=== PATIENT | male | born 1960 | race Caucasian/White ===

== ENCOUNTER 2016-12-20 12:39 | Inpatient (IN) | payer OTHER ==
--- NOTE | 2016-12-20 13:12 | RAD ---
RIGHT FOOT 3 VIEWS: HISTORY: Evaluate for osteomyelitis. COMPARISON: Radiographs 2016. FINDINGS: Central defect is noted at the articular surface of the 1st metatarsal head. There is some soft tis halima thickening of the medial margin of the interphalangeal joint of the great toe. No large erosio ns or periostitis. IMPRESSION: Soft tissue changes of infection or cellulitis. No definite evidence of osteomyelitis. If there is continued clinical concern, focused MRI of that area is recommended. POS: ELLIS
[2016-12-20 14:10] LABS: #Basophils 0.1 thou/uL (0.0-0.2); #Eosinphils 0.3 thou/uL (0.0-0.7); #Lymphocytes 2.7 thou/uL (1.20-3.40); #Monocytes 0.8 thou/uL (0.11-0.59); #Neutrophils 6.4 thou/uL (1.40-6.50); %Basophils 1.1 % (0.0-1.0); %Lymphocytes 25.7 % (21.0-51.0); %Monocytes 8.1 % (0.0-10.0); Hematocrit 44.6 % (42.0-52.0); Mean Platelet Volume 7.2 fL (7.4-10.4); Red Blood Cell (RBC) Count 4.92 mill/uL (4.70-6.10); White Blood Cell (WBC) Count 10.3 thou/uL (4.8-10.8)
[2016-12-20 14:26] LABS: ALT (SGPT) 19 U/L (8-55); AST (SGOT) 11 U/L (5-34); Alkaline Phosphatase 114 U/L (40-150); Anion Gap 13 mmol/L (10-20); BUN (Urea Nitrogen) 27 mg/dL (8.4-25.7); Bilirubin, Total 0.4 mg/dL (0.2-1.2); Calc. Creatinine Clearance 0 mL/min (70-130); Calcium 9.8 mg/dL (7.8-10.44); Carbon Dioxide 22 mmol/L (22-29); Chloride 103 mmol/L (98-107); Estimated GFR-MDRD 48; Globulin 3.5 g/dL (2.4-3.5); Protein, Total 7.4 g/dL (6.0-8.3)
[2016-12-20] MEDS ORDERED: Piperacillin/Tazobactam 3.375 GM in Sodium Chloride 0.9% 100 ML IVPB SCH ×2 (15:15→18:00)
[2016-12-20 15:25] LABS: Bilirubin Negative (Negative); Blood, Urine Negative (Negative); Glucose, Urine (Dipstick) 500 mg/dL (Negative); Ketone, Urine Negative (Negative); Nitrite Negative (Negative); Protein, Urine (Dipstick) Negative (Neg-Trace); Urobilinogen 0.2 mg/dL (0.2-1.0)
--- NOTE | 2016-12-20 15:49 | HP ---
PRIMARY CARE PHYSICIAN: Layo Lugo M.D. REASON FOR ADMISSION: Right great toe cellulitis with ulcer. HISTORY OF PRESENT ILLNESS: A 56-year-old male who was admitted in our hospital on 10/13/2016. At that time, patient had callus over his right great toe which breakdown and subsequently he was havin g ulcer, which was healing, but for last few days, he noticed that ulcer over plantar aspect of righ t great toe which was draining purulent material. He was applying and doing wound care by himself anton Doe, but he was feeling that it was not helping, and he noticed increasing erythema over d orsal aspect of right great toe and he was also feeling a little bit of discomfort. He denies any f ever or chills. He denies any nausea, vomiting, and diarrhea. He denies walking barefoot. Patient is feeling that his ulcer over right great toe is getting worse and that is why he decided to come to emergency room for evaluation. In the emergency room, his blood sugar was 399. He had x-ray of the foot which showed no evidence of osteomyelitis. Patient reports that he is taking his medicatio n as prescribed. He still smokes about half pack per day. He denies any urinary tract infection sy mptoms. He denies any chest pain, palpitations, and shortness of breath. REVIEW OF SYSTEMS: The following complete review of systems was negative, unless otherwise mentione d in the HPI or below: Constitutional: Weight loss or gain, ability to conduct usual activities. Skin: Rash, itching. Eyes: Double vision, pain. ENT/Mouth: Nose bleeding, neck stiffness, pain, tenderness. Cardiovascular: Palpitations, dyspnea on exertion, orthopnea. Respiratory: Shortness of breath, wheezing, cough, hemoptysis, fever or night sweats. Gastrointestinal: Poor appetite, abdominal pain, heartburn, nausea, vomiting, constipation, or diar johnie. Genitourinary: Urgency, frequency, dysuria, nocturia. Musculoskeletal: Pain, swelling. Neurologic/Psychiatric: Anxiety, depression. Allergy/Immunologic: Skin rash, bleeding tendency. Please see my HPI for pertinent positive and negative. All other review of systems reviewed and neg ative except as mentioned in the HPI. PAST MEDICAL HISTORY: History of GA in 2015, required cardiac catheterization; coronary artery dise ase, required CABG; COPD; tobacco abuse disorder; diabetes type 2; hypertension; dyslipidemia; ische miguel cardiomyopathy; and chronic systolic heart failure. PAST SURGICAL HISTORY: CABG in 04/2014. PAST PSYCHIATRIC HISTORY: Reviewed and negative. SOCIAL HISTORY: Patient is smoking about half to 1 pack per day since age of 19. He denies any alc ohol abuse. He denies any other illicit drug abuse. FAMILY HISTORY: Father was diagnosed with colon cancer. Mother had myocardial infarction. Hyperte nsion and diabetes runs among several family members. ALLERGIES: No known drug allergies. CURRENT HOME MEDICATIONS: The patient does not have any medication with him at this point, but base d on our hospital discharge summary, the patient is on following medications: Amiodarone 200 mg p.o . daily, aspirin 325 mg p.o. daily, Coreg 3.125 mg p.o. b.i.d., Lasix 40 mg p.o. daily, lisinopril 2 .5 mg p.o. daily, Zocor 20 mg p.o. daily, metformin 500 mg p.o. daily, and glyburide 5 mg p.o. daily . EMERGENCY ROOM COURSE: Patient has received vancomycin, Zosyn and IV fluid in the emergency room. PHYSICAL EXAMINATION: VITAL SIGNS: On arrival, blood pressure 123/64, pulse 71, respiratory rate 18, temperature 97.7, sa turation 97% on room air, weight 86.1 kilograms. GENERAL: Patient is currently alert, awake, no obvious acute distress. HEAD: Normocephalic, atraumatic. EYES: Pupils round and reactive to light. Extraocular muscles intact. ENT: Oropharynx within normal limits. Moist mucous membranes. No oral lesions. No pharyngeal conrad thema, no exudate. NECK: Supple, no JVD, no thyromegaly, no carotid bruit. LUNGS: Clear to auscultation without any rhonchi or rales. CARDIAC: S1 and S2 regular without any murmur. ABDOMEN: Soft, bowel sounds present, nontender, nondistended. No organomegaly, no mass, no suprapu bic tenderness. BACK: Examination unremarkable, no CVA tenderness. EXTREMITIES: Upper extremity passive movements of all joints are normal. Lower extremities, right foot tenderness noted. Right great toe with plantar aspect ulceration draining scant amount of puru lent material. The patient does have ulcer about 2 cm in size at the plantar aspect of right great toe. Patient does have right great toe erythema even on dorsal aspect. NEUROLOGIC: Nonfocal examination. The patient moves all 4 limbs. Plantar bilateral flexor. Speec h normal. No focal neurological deficit noted. SKIN: No skin rash other than cellulitis of right great toe. PSYCHIATRIC: Normal affect. IMAGING AND SIGNIFICANT LABORATORY DATA: 1. X-ray of the toe consistent with soft tissue changes over right great toe consistent with cellul itis. No osteomyelitis based on x-ray. 2. CBC: WBC 10.3, hemoglobin 14.8, platelet 276, and ESR 29. 3. BMP: Sodium 134, potassium 4.1, chloride 103, carbon dioxide 22, BUN 27, creatinine 1.51, gluco se 399, and calcium 9.8. 4. LFTs: AST 11, ALT 19, alkaline phosphatase 114, and albumin 3.9. CRP less than 0.50. ASSESSMENT AND PLAN/IMPRESSION: 1. Right great toe cellulitis with ulcer in view of uncontrolled diabetes. This patient has cellul itis of right great toe with a scant amount of draining from the ulcer. This patient will require w ound care. This patient is at risk for losing his great toe. Patient will need admission for IV an tibiotic therapy. We will continue with vancomycin and Zosyn. We will consult Wound Care Team for wound care. Patient may need minor surgical debridement at bedside and that is why we will consult General Surgery for evaluation. 2. Diabetes type 2, uncontrolled. At this point, we will continue with glyburide 5 mg p.o. daily a nd metformin 500 mg p.o. daily. We will check hemoglobin A1c. We will continue with insulin as per sliding scale protocol. Diabetic diet will be given, supplement with Davian will be given to promot e wound healing. 3. Dyslipidemia. We will continue Zocor 20 mg p.o. at bedtime. 4. Chronic systolic heart failure. Currently, patient is euvolemic and compensated. We will rocío nue Lasix 40 mg p.o. daily, lisinopril 2.5 mg p.o. daily, and Coreg 3.125 mg p.o. b.i.d. We will re peat basic metabolic panel tomorrow. 5. Ischemic cardiomyopathy. We will continue amiodarone 200 mg p.o. daily along with Coreg and lis inopril as per home dosage. 6. Coronary artery disease with history of coronary artery bypass grafting. Continue aspirin, Zoco r, Coreg, and lisinopril as per home dosage. 7. Tobacco abuse disorder. Smoking cessation counseling given. Healthy lifestyle measures discuss ed with the patient. 8. Chronic kidney disease stage 3. We will monitor renal function and will avoid nephrotoxic agent s. If renal function is getting worse, then we will hold on Lasix therapy. 9. Deep venous thrombosis prophylaxis, Lovenox 40 mg subcu daily. 10. Gastrointestinal prophylaxis, Pepcid 20 mg p.o. b.i.d. 11. Code status: The patient is FULL CODE. Disposition plan based on clinical course. We are expecting patient's stay in the hospital more veda n 2 midnights. Plan of care discussed with the patient in detail.
[2016-12-20] MEDS ORDERED: Chloraseptic Spray 180 ml Bottle PO PRN (17:28)
[2016-12-20] MEDS ORDERED: Dextrose 5% in Water 1,000 ML IV PRN (17:28)
[2016-12-20] MEDS ORDERED: Diabetic Tussin 200 MG/10 ML UDCUP PO PRN (17:28)
[2016-12-20] MEDS ORDERED: Zolpidem Tartrate 5 MG TAB PO PRN (17:28)
[2016-12-20] MEDS ORDERED: Mag-Al 1200 mg/1200 mg/30 ML UDCUP PO PRN (17:28)
[2016-12-20] MEDS ORDERED: Dextrose 50% Abboject 50 ML SYRINGE SLOW IVP PRN (17:28)
[2016-12-20] MEDS ORDERED: Ondansetron ODT 4 MG TAB PO PRN (17:28)
[2016-12-20] MEDS ORDERED: Acetaminophen 325 MG TAB PO PRN (17:28)
[2016-12-20] MEDS ORDERED: Senokot 8.6 MG TAB PO PRN (17:28)
[2016-12-20] MEDS ORDERED: Ondansetron HCl/PF 4 MG/2 ML Vial IVP PRN (17:28)
[2016-12-20] MEDS ORDERED: Milk Of Magnesia 30 ML UDCUP PO PRN (17:28)
[2016-12-20] MEDS ORDERED: Insulin Regular 300 UNITS/3 ML VIAL SC PRN (17:28)
[2016-12-20] MEDS ORDERED: Sodium Chloride 0.65% Nasal 44 ML BOT EA NARE PRN (17:28)
[2016-12-20] MEDS ORDERED: hydrALAZINE 20 MG/ML VIAL SLOW IVP PRN (17:28)
[2016-12-20] MEDS ORDERED: Artificial Tears 18 DROP/0.9 ML EA EYE PRN (17:28)
[2016-12-20] MEDS ORDERED: Loperamide HCl 2 MG CAP PO PRN (17:28)
[2016-12-20] MEDS ORDERED: HYDROcodone/Acetaminophen 5/325 mg Tablet PO PRN (17:28)
[2016-12-20] MEDS ORDERED: Nitroglycerin 0.4 MG TAB (25 Tab Bottle) SL PRN (17:28)
[2016-12-20] MEDS ORDERED: Eucerin (Mineral Oil/Petrolatum,White) 30 gm Jar TOP PRN (17:28)
[2016-12-20] MEDS ORDERED: Loratadine 10 MG TAB PO PRN (17:28)
[2016-12-20] MEDS: Carvedilol 3.125 MG TAB PO SCH ×2 (18:52→19:46)
[2016-12-20] MEDS: Famotidine 20 MG TAB PO SCH (20:53)
[2016-12-20] MEDS: Atorvastatin Calcium 10 MG TAB PO SCH (20:53)
[2016-12-21] MEDS: Piperacillin/Tazobactam 3.375 GM, Admixture Fee 1 EACH in Sodium Chloride 0.9% 100 ML IVPB SCH ×5 (00:05→23:17)
--- NOTE | 2016-12-21 01:29 | CON ---
DATE OF CONSULTATION: 12/20/2016 REASON FOR CONSULT: Right great toe cellulitis with ulcer. HISTORY OF PRESENT ILLNESS: Mr. Cole is a 56-year-old man with diabetes who was seen recently in our hospital back in September for a right great toe ulcer. He underwent shaving of the callus by Dr. Winchester and was treating his toe at home and thought that it was getting better; however, when he too k off the bandage this morning, it splits and his right great toe had gotten quite a bit deeper and he became concerned, so he came to the emergency room. He denies any fevers or chills or drainage, though he was admitted due to early cellulitis. X-ray of the foot in the emergency room did not ellen w any evidence of bony erosion. The patient claims that he has problems with callus on his great to e chronically, but has not yet established care with a radio maintainer. He was supposed to follow up wit h Dr. Winchester, states that it looks so good, he did not think it was necessary. PAST MEDICAL HISTORY: Diabetes, coronary artery disease status post catheterization and bypass, isidra oing tobacco abuse, hypertension, hyperlipidemia, ischemic cardiomyopathy and COPD. He underwent a CABG in 2014. SOCIAL HISTORY: He is still smoking, but states that he is switched to light cigarettes. He is not interested in smoking cessation. He denies any alcohol or drug abuse. FAMILY HISTORY: Colon cancer, heart disease, hypertension, and diabetes. ALLERGIES: He has no known drug allergies. OUTPATIENT MEDICATIONS: Include amiodarone, aspirin, carvedilol, Lasix, lisinopril, magnesium hydro xide, simvastatin, glyburide and metformin. INPATIENT MEDICATIONS: Include aspirin, atorvastatin, amiodarone, carvedilol, Lovenox, Pepcid, Lasi x, glyburide, sliding scale insulin, lisinopril, metformin, Zosyn, vancomycin and multiple p.r.n. REVIEW OF SYSTEMS: Ten-system review of systems is negative except per HPI. The patient denies any chest pain, shortness of breath, claudication, or wrist pain. PHYSICAL EXAMINATION: VITAL SIGNS: The patient has been afebrile since his admission. Heart rate 60, respirations 18, bl ood pressure 93/55, 97% saturated on room air. GENERAL: Reveals a gentleman in no acute distress who appears reasonably healthy. HEENT: Unremarkable. NECK: Supple, without lymphadenopathy or thyroid nodules. HEART: Regular in its rate and rhythm without murmurs, rubs or gallops. LUNGS: Clear to auscultation bilaterally. ABDOMEN: Soft, nontender and nondistended. EXTREMITIES: Warm and well perfused with palpable pedal pulses. His right great toe has a thick ca llus with deep splits within the callus and no expressible drainage. The toe is not significantly s wollen, but is slightly red. He also has some smaller calluses on his left foot. He has grossly no rmal sensation to soft touch. PSYCHIATRIC: Alert, oriented, and appropriate. X-rays of the right foot are reviewed and I agree w ith the written report. LABORATORY DATA: White count is normal at 10.3. BUN and creatinine are mildly elevated at 27 and 1 .51 and blood glucose was high at 399 in the emergency room, has come down to 209 since then. ASSESSMENT: The patient with likely diabetic neuropathy with chronic callus formation. His right g reat toe callus has become septic and it has developed a deep fissure. The callus will be shaved do wn to try to reach healthier skin and we will ask wound care for suggestions on different dressing c hanges, so we can try to get this wound to ultimately heal. I do not believe that amputation is mor e aggressive, surgical debridement is required at this time. We will plan on shaving down his callu ses tomorrow since the necessary supplies are not available on the floor at this time.
[2016-12-21] MEDS: Vancomycin HCl 1 GM in Premix Bag 1 BAG IVPB SCH ×2 (03:24→13:59)
[2016-12-21 04:10] LABS: #Basophils 0.1 thou/uL (0.0-0.2); #Eosinphils 0.4 thou/uL (0.0-0.7); #Lymphocytes 2.9 thou/uL (1.20-3.40); #Neutrophils 4.7 thou/uL (1.40-6.50); %Basophils 1.1 % (0.0-1.0); %Eosinophils 4.9 % (0.0-10.0); %Lymphocytes 31.9 % (21.0-51.0); %Monocytes 10.8 % (0.0-10.0); Mean Platelet Volume 7.5 fL (7.4-10.4); Red Blood Cell (RBC) Count 4.22 mill/uL (4.70-6.10); White Blood Cell (WBC) Count 9.1 thou/uL (4.8-10.8)
[2016-12-21 04:29] LABS: Anion Gap 11 mmol/L (10-20); BUN (Urea Nitrogen) 22 mg/dL (8.4-25.7); Calc. Creatinine Clearance 94 mL/min (70-130); Calcium 8.3 mg/dL (7.8-10.44); Carbon Dioxide 20 mmol/L (22-29); Chloride 106 mmol/L (98-107); Estimated GFR-MDRD 68
[2016-12-21] MEDS: Insulin Regular 300 UNITS/3 ML VIAL SC PRN ×2 (07:15→16:37)
[2016-12-21] MEDS: metFORMIN 500 MG TAB PO SCH (08:04)
[2016-12-21] MEDS: Aspirin 325 MG TAB PO SCH (08:04)
[2016-12-21] MEDS: Furosemide 20 MG TAB PO SCH (08:05)
[2016-12-21] MEDS: Famotidine 20 MG TAB PO SCH ×2 (08:05→20:26)
[2016-12-21] MEDS: Lisinopril 2.5 MG TAB PO SCH (08:07)
[2016-12-21] MEDS: glyBURIDE 5 MG TAB PO SCH (08:09)
[2016-12-21] MEDS: Carvedilol 3.125 MG TAB PO SCH ×2 (08:12→17:28)
[2016-12-21] MEDS: Enoxaparin Sodium 40 MG/0.4 ML SYRINGE SC SCH ×2 (09:11→16:40)
--- NOTE | 2016-12-21 11:41 | PDOC.PN ---
- Subjective Encounter Start Date: 12/21/16 Encounter Start Time: 07:00 -: old records requested/rev Patient seen and examined. No new complaints. No overnight events - Objective Resuscitation Status: Resuscitation Status FULL:Full Resuscitation MAR Reviewed: Yes Vital Signs & Weight: Vital Signs (12 hours) Temp Pulse Resp BP BP Pulse Ox 12/21/16 08:14 97.5 F L 54 L 20 90/54 L 100 12/21/16 08:07 54 L 90/54 L 12/21/16 08:00 97.5 F L 54 L 20 12/21/16 04:00 97.8 F 60 12 122/70 98 12/21/16 00:00 98.6 F 54 L 16 92/49 L 99 Weight Weight 194 lb 8 oz I&O: 12/20/16 12/21/16 12/22/16 06:59 06:59 06:59 Intake Total 100 240 Balance 100 240 Result Diagrams: 12/21/16 03:21 12/21/16 03:21 Additional Labs: Accuchecks 12/21/16 12/21/16 12/20/16 11:22 06:03 20:59 POC Glucose 136 H 262 H 209 H 12/20/16 17:27 POC Glucose 248 H Phys Exam - Physical Examination Constitutional: NAD HEENT: PERRLA, moist MMs, sclera anicteric Neck: no JVD, supple Respiratory: no wheezing, no rales, no rhonchi Cardiovascular: RRR, no significant murmur, no rub Gastrointestinal: soft, non-tender, no distention, positive bowel sounds Musculoskeletal: no edema, pulses present right great toe less erythema, ulcer on plater aspect Neurological: non-focal, normal sensation, moves all 4 limbs Lymphatic: no nodes Psychiatric: normal affect, A&O x 3 Skin: no rash, normal turgor Dx/Plan (1) Acute kidney failure Status: Resolved (2) Cellulitis of great toe, right Code(s): L03.031 - CELLULITIS OF RIGHT TOE Status: Acute (3) Diabetic toe ulcer Code(s): E11.621 - TYPE 2 DIABETES MELLITUS WITH FOOT ULCER; L97.509 - NON- PRESSURE CHRONIC ULCER OTH PRT UNSP FOOT W UNSP SEVERITY Status: Acute Qualifiers: Diabetes mellitus type: type 2 (4) CAD (coronary artery disease) Code(s): I25.10 - ATHSCL HEART DISEASE OF [place] CORONARY ARTERY W/O ANG PCTRS Status: Chronic (5) Chronic systolic (congestive) heart failure Code(s): I50.22 - CHRONIC SYSTOLIC (CONGESTIVE) HEART FAILURE Status: Chronic (6) Diabetes type 2, uncontrolled Code(s): E11.65 - TYPE 2 DIABETES MELLITUS WITH HYPERGLYCEMIA Status: Chronic (7) Dyslipidemia Code(s): E78.5 - HYPERLIPIDEMIA, UNSPECIFIED Status: Chronic (8) Hypertension Code(s): I10 - ESSENTIAL (PRIMARY) HYPERTENSION Status: Chronic (9) Ischemic cardiomyopathy Code(s): I25.5 - ISCHEMIC CARDIOMYOPATHY Status: Chronic (10) Tobacco abuse Code(s): Z72.0 - TOBACCO USE Status: Chronic - Plan cont current plan of care, continue antibiotics * continue vancomycin and zosyn * wound care * surgeon consulted * medication reviewed as below * symptomatic treatment * counselled to avoid smoking. Review of Systems - Review of Systems ENT: negative: Ear Pain, Ear Discharge, Nose Pain, Nose Discharge, Nose Congestion, Mouth Pain, Mouth Swelling, Throat Pain, Throat Swelling, Other Respiratory: negative: Cough, Dry, Shortness of Breath, Hemoptysis, SOB with Excertion, Pleuritic Pain, Sputum, Wheezing Cardiovascular: negative: Chest Pain, Palpitations, Orthopnea, Paroxysmal Noc. Dyspnea, Edema, Light Headedness, Other Gastrointestinal: negative: Nausea, Vomiting, Abdominal Pain, Diarrhea, Constipation, Melena, Hematochezia, Other Genitourinary: negative: Dysuria, Frequency, Incontinence, Hematuria, Retention , Other Musculoskeletal: negative: Neck Pain, Shoulder Pain, Arm Pain, Back Pain, Hand Pain, Leg Pain, Foot Pain, Other - Medications/Allergies Allergies/Adverse Reactions: Allergies Allergy/AdvReac Type Severity Reaction Status Date / Time No Known Allergies Allergy Verified 04/21/14 12:47 Medications: Current Medications Acetaminophen (Tylenol) 650 mg PO Q4H PRN PRN Reason: Headache/Fever or Pain Hydrocodone Bitart/Acetaminophen ([place] 5/325) 1 tab PO Q4H PRN PRN Reason: Moderate Pain (4-6) Al Hydroxide/Mg Hydroxide (Maalox) 30 ml PO Q6H PRN PRN Reason: Heartburn or Indigestion Amiodarone HCl (Cordarone) 200 mg PO DAILY [facility] Last Admin: 10/22/17 08:09 Dose: Not Given Artificial Tears (Tears Naturale) 0 drop EA EYE PRN PRN PRN Reason: Dry Eyes Aspirin (Aspirin) 325 mg PO DAILY [facility] Last Admin: 12/21/16 08:04 Dose: 325 mg Atorvastatin Calcium (Lipitor) 10 mg PO HS [facility] Last Admin: 12/20/16 20:53 Dose: 10 mg Carvedilol (Coreg) 3.125 mg PO BID-[facility] Last Admin: 12/21/16 08:12 Dose: Not Given Dextrose/Water (Dextrose 50%) 25 gm SLOW IVP PRN PRN PRN Reason: Hypoglycemia Enoxaparin Sodium (Lovenox) 40 mg SC 0900 [facility] Last Admin: 12/21/16 09:11 Dose: Not Given Famotidine (Pepcid) 20 mg PO BID [facility] Last Admin: 12/21/16 08:05 Dose: 20 mg Furosemide (Lasix) 20 mg PO DAILY [facility] Last Admin: 12/21/16 08:05 Dose: 20 mg Glucagon (Glucagon) 1 mg IM PRN PRN PRN Reason: Hypoglycemia Glyburide (Diabeta) 5 mg PO QAM-[facility] Last Admin: 12/21/16 08:09 Dose: 5 mg Guaifenesin (Robitussin Sf) 200 mg PO Q4H PRN PRN Reason: Cough Hydralazine HCl (Apresoline) 10 mg SLOW IVP Q4H PRN PRN Reason: Systolic BP > 180 Dextrose/Water (D5w) 1,000 mls @ 0 mls/hr IV .Q0M PRN; As Directed PRN Reason: Hypoglycemia Vancomycin HCl 1 gm/ Device 200 mls @ 200 mls/hr IVPB 0300,1500 [facility] Last Admin: 12/21/16 03:24 Dose: 200 mls Piperacillin Sod/Tazobactam Sod 3.375 gm/ Miscellaneous Medication 1 each/ Sodium Chloride 100 mls @ 200 mls/hr IVPB Q6HR [facility] Last Admin: 12/21/16 06:18 Dose: 100 mls Insulin Human Regular (Humulin R) 0 units SC .AGGRESSIVE SLIDING PRN PRN Reason: Aggressive Sliding Scale Last Admin: 12/21/16 07:15 Dose: 9 unit Insulin Human Regular (Humulin R) 0 units SC .BEDTIME SLIDING SC PRN PRN Reason: Bedtime Correctional Scale Lisinopril (Zestril) 2.5 mg PO DAILY [facility] Last Admin: 12/21/16 08:07 Dose: Not Given Loperamide HCl (Imodium) 2 mg PO PRN PRN PRN Reason: Diarrhea/Loose Stools Loratadine (Claritin) 10 mg PO DAILYPRN PRN PRN Reason: Sinus Symptoms Magnesium Hydroxide (Milk Of Magnesium) 30 ml PO DAILYPRN PRN PRN Reason: Constipation Metformin HCl (Glucophage) 500 mg PO QAM-[facility] Last Admin: 12/21/16 08:04 Dose: 500 mg Mineral Oil/White Petrolatum (Eucerin Cream) 0 gm TOP BIDPRN PRN PRN Reason: Dry Skin Miscellaneous Medication (Pharmacy To Dose) 1 each IVPB PRN PRN PRN Reason: Pharmacy to dose Nitroglycerin (Nitrostat) 0.4 mg SL Q5MIN PRN PRN Reason: Chest Pain Ondansetron HCl (Zofran Odt) 4 mg PO Q6H PRN PRN Reason: Nausea/Vomiting Ondansetron HCl (Zofran) 4 mg IVP Q6H PRN PRN Reason: Nausea/Vomiting Phenol (Chloraseptic [place] 180 Ml Bot) 0 ml PO PRN PRN PRN Reason: Sore Throat Senna (Senokot) 2 tab PO HSPRN PRN PRN Reason: Constipation Sodium Chloride ([place] Nasal [place] 0.65%) 0 ml EA NARE QIDPRN PRN PRN Reason: Nasal Congestion Sodium Chloride (Flush - Normal Saline) 10 ml IVF Q12HR [facility] Last Admin: 12/21/16 08:10 Dose: 10 ml Sodium Chloride (Flush - Normal Saline) 10 ml IVF PRN PRN PRN Reason: Saline Flush Zolpidem Tartrate (Ambien) 5 mg PO HSPRN PRN PRN Reason: Insomnia
[2016-12-21] MEDS: Atorvastatin Calcium 10 MG TAB PO SCH (20:26)
--- NOTE | 2016-12-21 23:53 | PRG ---
DATE OF SERVICE: 12/21/2016 SUBJECTIVE: Mr. Cole feels fine today. He has not had any further drainage or odor from his righ t great toe. Vital signs are normal. His right great toe and left great toe metatarsal were preppe d with Betadine and the callus sharply excised with a razor down to soft normal-appearing skin. The patient had some ulceration under the callus on his great toe. This did not appear to track into t he deep tissues. There was also a small ulcer under the left metatarsal callus. He has a puncture wound in that area and states that he stepped on a nail. There is no induration of the underlying t issues. No evidence of deep penetration. The patient tolerated the procedure well. He informs me that his medicine team may discharge him from the hospital and that he plans to follow up with the p odiatrist for ongoing care.
[2016-12-22] MEDS ORDERED: Vancomycin HCl 1.5 GM in Sodium Chloride 0.9% 250 ML 300 ML IVPB SCH (03:00)
[2016-12-22] MEDS: Piperacillin/Tazobactam 3.375 GM, Admixture Fee 1 EACH in Sodium Chloride 0.9% 100 ML IVPB SCH ×2 (04:59→12:47)
[2016-12-22] MEDS: Insulin Regular 300 UNITS/3 ML VIAL SC PRN ×2 (05:28→14:04)
[2016-12-22] MEDS: Lisinopril 2.5 MG TAB PO SCH (08:43)
[2016-12-22] MEDS: Aspirin 325 MG TAB PO SCH (08:43)
[2016-12-22] MEDS: Furosemide 20 MG TAB PO SCH (08:44)
[2016-12-22] MEDS: Famotidine 20 MG TAB PO SCH (08:44)
[2016-12-22] MEDS: Enoxaparin Sodium 40 MG/0.4 ML SYRINGE SC SCH (08:44)
[2016-12-22] MEDS: glyBURIDE 5 MG TAB PO SCH (08:44)
[2016-12-22] MEDS: Carvedilol 3.125 MG TAB PO SCH (08:44)
[2016-12-22] MEDS: metFORMIN 500 MG TAB PO SCH (08:45)
[2016-12-22 13:29] VITALS: BP 115/77; TEMP 97.6
[2016-12-22 15:33] VITALS: BMI 31.4
--- NOTE | 2016-12-23 03:16 | DIS ---
DATE OF ADMISSION: 12/20/2016 DATE OF DISCHARGE: 12/22/2016 CONDITION AT THE TIME OF DISCHARGE: Stable and improved. DISCHARGE DIAGNOSES: 1. Infection of the right great toe. 2. Acute kidney failure, resolved. 3. Diabetic toe ulcer. 4. Coronary artery disease. 5. Diabetes mellitus type 2. 6. Dyslipidemia. 7. Hypertension. 8. History of ischemic cardiomyopathy. 9. Tobacco abuse. 10. Chronic systolic congestive heart failure. DISCHARGE MEDICATIONS: Include aspirin 325 mg daily, amiodarone 200 mg daily, lisinopril 2.5 mg pamela ly, Lasix 40 mg daily, Coreg 3.125 mg p.o. b.i.d., Glucophage 500 mg daily, glyburide 5 mg daily, si mvastatin 20 mg daily. PRIMARY CARE PHYSICIAN: Layo Lugo M.D. FOLLOWUP: Followup with General Surgery, Dr. Aranda. CONSULTATIONS: Dr. Aranda, General Surgery. PROCEDURES DONE IN THE HOSPITAL: Include foot x-ray, which is negative for any evidence of osseous involvement. Soft tissue changes consistent with cellulitis noticed. I\T\D of the right great and left great toe. HISTORY OF PRESENTING ILLNESS: Mr. Cole is a 56-year-old male with past medical history of diabet es and coronary artery disease, who presented to the emergency room with complaints of a draining ul cer on the plantar aspect of the right great toe. He tried to do wound care at home by himself, but was not able to stop the drainage. His blood sugar was also running very high. An x-ray of the fo ot was done in the emergency room, which did not show any evidence of osteomyelitis. He was admitte d on broad-spectrum empiric antibiotics, and General Surgery and Wound Care was consulted. He was h emodynamically stable at the time of presentation. Please see admission history and physical for fu rther details. HOSPITAL COURSE: Dr. Aranda from General Surgical Team saw the patient, and the patient underwent a surgical debridement at bedside with shaving of the callus. Local wound care was applied, and nex t day, the patient was hemodynamically stable and feeling well and was cleared by General Surgery to go home. At this time, I discussed the discharge plan with Dr. Aranda, and no antibiotics are ind icated. The patient is able to do self wound care. Materials were provided to him. He will follow up with Dr. Aranda in 2 weeks. He was seen and examined prior to discharge. His physical exam include: VITAL SIGNS: Temperature 97.6, pulse anywhere from 46-60, blood pressure 115/77, respirations 18, s aturating 97% on room air. GENERAL: In no acute distress, awake, alert, oriented x3. CHEST: Clear to auscultation without any wheezing, rales or rhonchi. Rhythm is regular without any murmur, rubs or gallops. EXTREMITIES: Free of any cyanosis, clubbing, or edema. Wound evaluation show no purulent discharge from his great toe callus. Margins appear healthy. LABORATORY EXAMINATION: CBC shows WBC 9.1 with 51% neutrophils, hemoglobin 13.5. Serum chemistries are unremarkable except for slightly low sodium at 133. Blood sugar 136-239. Urinalysis showed gl ucosuria and microbiology was not obtained. At this time, he is hemodynamically stable and eager to go home. He did show me how to care for his wound by himself. I have emphasized the need for outpatient followup and blood sugar monitoring an d control. He verbalized understanding. Total time spent on the discharge 31 minutes.
== END 2016-12-22 16:04 | disposition home or self-care (01) | DRG 638 ==
LOC: ERS 12:39 → T4-B 15:22
PROVIDERS: ADMIT Internal Medicine; ATTEND Internal Medicine
PROC: 0HBMXZZ Excision of Right Foot Skin, External Approach (ICD-10-PCS; principal; 2016-12-20)
DX: E11.621 Type 2 diabetes mellitus with foot ulcer (principal); I50.22 Chronic systolic (congestive) heart failure; L97.519 Non-pressure chronic ulcer of other part of right foot with unspecified severity; E11.22 Type 2 diabetes mellitus with diabetic chronic kidney disease; N17.9 Acute kidney failure, unspecified; I13.0 Hypertensive heart and chronic kidney disease with heart failure and stage 1 through stage 4 chronic kidney disease, or unspecified chronic kidney disease; N18.3 Chronic kidney disease, stage 3 (moderate); L03.031 Cellulitis of right toe; J44.9 Chronic obstructive pulmonary disease, unspecified; F17.210 Nicotine dependence, cigarettes, uncomplicated; I25.2 Old myocardial infarction; I25.10 Atherosclerotic heart disease of native coronary artery without angina pectoris; Z98.61 Coronary angioplasty status; Z95.1 Presence of aortocoronary bypass graft; E78.5 Hyperlipidemia, unspecified; I25.5 Ischemic cardiomyopathy; E11.65 Type 2 diabetes mellitus with hyperglycemia; E11.42 Type 2 diabetes mellitus with diabetic polyneuropathy
CPT/HCPCS: 36415; 36416; 80048; 80053; 80202; 81003; 85025; 85652; 86140; 96365; 96366; A4216; J1610; J1650; J1815; J2543; J3370; J7050

== ENCOUNTER 2017-04-03 06:52 | Emergency (ER) | payer OTHER | END 2017-04-03 07:31 | disposition home or self-care (01) | LOC: ERS 06:52 | DX: E11.621 Type 2 diabetes mellitus with foot ulcer (principal); L97.519 Non-pressure chronic ulcer of other part of right foot with unspecified severity; I25.10 Atherosclerotic heart disease of native coronary artery without angina pectoris; F17.210 Nicotine dependence, cigarettes, uncomplicated; I25.2 Old myocardial infarction; Z79.84 Long term (current) use of oral hypoglycemic drugs; Z79.899 Other long term (current) drug therapy | CPT/HCPCS: 99282 ==

== ENCOUNTER 2017-04-06 08:21 | Outpatient (CLI) | payer OTHER ==
--- NOTE | 2017-04-06 23:34 | HP ---
HISTORY OF PRESENT ILLNESS: Mr. Yifan Cole is a very pleasant 57-year-old gentleman previously s een in the [facility] for an ulceration of the plantar surface of the left hallux. The patient now presents to the Wound Center for evaluation of an ulceration of the plantar surface of the right adriana lux. The patient states that the ulceration has been present for approximately 1 year. He states th at the ulceration developed in the region of a callus. He states that the ulceration has been smalle r in the past. He states that he has been cleansing the ulceration with Dial soap and iodine. He al so reports dressing the ulceration with Triple antibiotic ointment followed by gauze. He states that more recently he has been utilizing a Band-Aid instead gauze as the secondary dressing. Patient was referred to the Wound Center by Dr. Monte on 04/03/2017. PAST MEDICAL HISTORY: 1. Diabetes mellitus. 2. Ischemic cardiomyopathy. 3. Coronary artery disease. 4. COPD. 5. Hypertension. 6. Anemia. PAST SURGICAL HISTORY: Coronary artery bypass grafting x3. MEDICATIONS: 1. Amiodarone. 2. Aspirin 325 mg. 3. Coreg. 4. Glyburide. 5. Lisinopril. 6. Metformin. 7. Potassium chloride. 8. Simvastatin. 9. Torsemide. ALLERGIES: No known diagnosed allergies. SOCIAL HISTORY: Significant for tobacco use of up to 1 pack of cigarettes per day for over 30 years. The patient denies any history of ETOH use. FAMILY HISTORY: Significant for diabetes mellitus. The patient states that his mother and uncle wer e diagnosed with diabetes mellitus. Family history is also significant for coronary artery disease. The patient's mother was diagnosed with coronary artery disease. PHYSICAL EXAMINATION: VITAL SIGNS: Stable. Afebrile. GENERAL: A 57-year-old gentleman sitting on chair in examination room in no acute distress. HEENT: Normocephalic, atraumatic. NECK: No nuchal rigidity. CHEST: Clear to auscultation. CARDIAC: Regular rate and rhythm. ABDOMEN: Soft. EXTREMITIES: An ulceration of the plantar surface of the right hallux is present, which measures wallace roximately 1.3 x 0.5 cm. Granulation tissue is present within the wound margins. Necrotic and nonvi able tissue present within the wound margins was debrided with an excisional full-thickness debrideme nt. Callus and undermining at the periphery of the wound were eliminated with an excisional full-thi ckness debridement with the use of scissors. No purulent drainage is associated with the wound. No erythema of the skin surrounding the wound is present. Maceration of the skin of the periwound is no alexy. A dorsalis pedis pulse is palpable on the right. No significant edema of the right foot is pre sent on exam today. NEUROLOGIC: Grossly nonfocal. ASSESSMENT AND PLAN: 1. Ulceration of plantar surface of right hallux. Dressing changes of Silverlon will be initiated t jessica, 4 x 4s and Kerlix will be utilized as secondary dressings. These dressing changes are to be pe rformed on a daily basis after cleansing and irrigation. No antibiotics will be prescribed today bas ed upon the appearance of the wound. I will see Mr. Cole again in one week. Arrangements will be made for home delivery of dressing supplies. 2. Diabetes mellitus. Accu-Cheks will be obtained at the time of the patient's clinic visits. The patient has been told that for optimal wound healing, his blood glucoses should remain below 150. 3. Ischemic cardiomyopathy. 4. Coronary artery disease. 5. Chronic obstructive pulmonary disease. 6. Hypertension. 7. Anemia.
== END 2017-04-06 08:22 | disposition home or self-care (01) ==
LOC: WCC 08:21
PROVIDERS: ATTEND Family Medicine
DX: E11.621 Type 2 diabetes mellitus with foot ulcer (principal); L97.419 Non-pressure chronic ulcer of right heel and midfoot with unspecified severity; I25.5 Ischemic cardiomyopathy; I25.10 Atherosclerotic heart disease of native coronary artery without angina pectoris; J44.9 Chronic obstructive pulmonary disease, unspecified; I10 Essential (primary) hypertension; D64.9 Anemia, unspecified
CPT/HCPCS: 11042; 36416; 99213; G0463

== ENCOUNTER 2017-04-13 08:05 | Outpatient (CLI) | payer OTHER ==
--- NOTE | 2017-04-13 09:10 | PRG ---
DATE OF SERVICE: 04/13/2017 HISTORY: Mr. Yifan Cole is a very pleasant 57-year-old gentleman previously seen in the Wound Center for an ulceration of the plantar surface of the left hallux. The patient is now being seen in the Wound Center for an ulceration of the plantar surface of the right hallux. The patient stated at the time of his last visit that the ulceration had been present for approximately 1 year. He stated that the ulceration developed in a region of callus. He stated that the ulceration had been smaller in the past and had grown progressively in its size. He stated that he had been cleansing the ulceration with Dial soap and iodine prior to being seen in the Wound Center. He also reported dressing the ulceration with Triple Antibiotic Ointment followed by gauze. Just prior to being seen in the Wound Center, he stated, he had been utilizing a Band-Aid instead of gauze as the secondary dressing. The patient was referred to the Wound Center by Dr. Monte on 04/03/2017. After being seen in the Wound Center, the patient was placed on dressing changes of Silverlon on a daily basis after cleansing and irrigation. PHYSICAL EXAMINATION: VITAL SIGNS: Temperature 97.5, pulse 65, respirations 18, blood pressure 129/ 71. EXTREMITIES: An ulceration of the plantar surface of the right hallux is present, which measures approximately 0.5 x 0.6 cm. The dimensions of the wound at the time of the patient's last visit were approximately 1.3 x 0.5 cm. Granulation tissue is present within the wound margins. Necrotic and nonviable tissue present within the wound margins was debrided with an excisional full- thickness debridement with the use of a curette. No purulent drainage is associated with the wound. No erythema of the skin surrounding the wound is present. No maceration of the skin of the periwound is noted. No significant edema of the right foot is present on exam today. ASSESSMENT AND PLAN: 1. Ulceration of plantar surface of right hallux. Dressing changes of Silverlon will be continued on a daily basis after cleansing and irrigation. 2. A 4x 4 or 2 x 2 and Kerlix or Raymnod will be utilized as secondary dressings. I will see Mr. Cole again in one week. Arrangements were previously made for the home delivery of dressing supplies. 3. Diabetes mellitus. Accu-Cheks will be obtained at the time of the patient' s clinic visits. The patient has been reminded that for optimal wound healing, his blood glucoses should remain below 150. 4. Ischemic cardiomyopathy. 5. Coronary artery disease. 6. Chronic obstructive pulmonary disease. 7. Hypertension. 8. Anemia. MTDD
[2017-04-13] MEDS ORDERED: Lidocaine 2% Jelly 5 ML TUBE ONE (11:11)
[2017-04-13] MEDS ORDERED: Sodium Chloride 0.9% 15 ML NEB ONE (11:11)
== END 2017-04-13 08:06 | disposition home or self-care (01) ==
LOC: WCC 08:05
PROVIDERS: ATTEND Family Medicine
DX: E11.621 Type 2 diabetes mellitus with foot ulcer (principal); L97.419 Non-pressure chronic ulcer of right heel and midfoot with unspecified severity; I25.10 Atherosclerotic heart disease of native coronary artery without angina pectoris; I25.5 Ischemic cardiomyopathy; J44.9 Chronic obstructive pulmonary disease, unspecified; D64.9 Anemia, unspecified; I10 Essential (primary) hypertension
CPT/HCPCS: 11042; A4218

== ENCOUNTER 2017-04-20 07:54 | Outpatient (CLI) | payer OTHER ==
--- NOTE | 2017-04-20 08:51 | PRG ---
DATE OF SERVICE: 04/20/2017 HISTORY: Mr. Yifan Cole is a very pleasant 57-year-old gentleman previously seen in the [facility] for an ulceration of the plantar surface of the left hallux. The patient is now being seen in the Wound Center for an ulceration of the plantar surface of the right hallux. The patient state d at the time of the previous visit that the ulceration had been present for approximately 1 year. H e stated that the ulceration developed in the region of callus. He stated that the ulceration had be en smaller in the past and had grown progressively in size. He stated that he had been cleansing the ulceration with Dial soap and iodine prior to being seen in the Wound Center. He also reported dres sing the ulceration with Triple Antibiotic ointment followed by gauze. Just prior to being seen in [facility] [place], he stated he had been utilizing a Band-Aid instead of gauze as a secondary dressing. The patient was referred to the Wound Center by Dr. Monte on 04/03/2017. After being seen in the [facility], the patient was placed on dressing changes of Silverlon on a daily basis after cleansing and irrigation. PHYSICAL EXAMINATION: VITAL SIGNS: Temperature 97.4, pulse 73, blood pressure 147/74. EXTREMITIES: An ulceration of the plantar surface of the right hallux is present which measures appr oximately 0.5 x 0.8 cm. Granulation tissue is present within the wound margins. Necrotic and nonvia ble tissue present within the wound margins was debrided with an excisional full-thickness debridemen t with the use of a curette. Undermining desiccated tissue and callus at the periphery of the wound were eliminated with the use of scissors. No purulent drainage is associated with the wound. No conrad thema of the skin surrounding the wound is present. No maceration of the skin of the periwound is no alexy. No significant edema of the right foot is present on exam today. ASSESSMENT AND PLAN: 1. Ulceration of plantar surface of right hallux. Dressing changes of Silverlon will be continued o n a daily basis after cleansing and irrigation. Gauze will be continued as secondary dressing. I wi ll see Mr. Cole again in one week. 2. Diabetes mellitus. Accu-Cheks will be obtained at the time of the patient's clinic visits. The patient has been reminded that for optimal wound healing, his blood glucoses should remain below 150. 3. Ischemic cardiomyopathy. 4. Coronary artery disease. 5. Chronic obstructive pulmonary disease. 6. Hypertension. 7. Anemia.
[2017-04-20] MEDS ORDERED: Sodium Chloride 0.9% 15 ML NEB ONE (11:11)
== END 2017-04-20 07:55 | disposition home or self-care (01) ==
LOC: WCC 07:54
PROVIDERS: ATTEND Family Medicine
DX: E11.621 Type 2 diabetes mellitus with foot ulcer (principal); L97.419 Non-pressure chronic ulcer of right heel and midfoot with unspecified severity; I25.10 Atherosclerotic heart disease of native coronary artery without angina pectoris; I25.5 Ischemic cardiomyopathy; J44.9 Chronic obstructive pulmonary disease, unspecified; I10 Essential (primary) hypertension; D64.9 Anemia, unspecified
CPT/HCPCS: 11042; 36416; A4218

== ENCOUNTER 2017-04-27 08:05 | Outpatient (CLI) | payer OTHER ==
--- NOTE | 2017-04-27 08:46 | PRG ---
DATE OF SERVICE: 04/27/2017 HISTORY: Mr. Yifan Cole is a very pleasant 57-year-old gentleman previously seen in the Wound Center for an ulceration of the plantar surface of the left hallux. The patient is now being seen in the Wound Center for an ulceration of the plantar surface of the right hallux. The patient stated at the time of a previous visit that the ulceration of the plantar surface of the right hallux had been present for approximately 1 year. He stated that the ulceration developed in a region of callus. After being seen in the Wound Center, the patient was placed on dressing changes of Silverlon on a daily basis after cleansing and irrigation. PHYSICAL EXAMINATION: VITAL SIGNS: Temperature 97.5, pulse 73, respirations 16, blood pressure 139/ 83. Accu-Chek 459. EXTREMITIES: An ulceration of the plantar surface of the right hallux is present which measures approximately 0.5 x 0.9 cm. Granulation tissue is present within the wound margins. Necrotic and nonviable tissue present within the wound margins was debrided with an excisional full-thickness debridement with the use of a curette. Undermining, desiccated tissue, and callus at the periphery of the wound were eliminated with the use of scissors, also with an excisional full-thickness debridement. Post-debridement measurements are approximately 0.8 x 0.8 cm. No purulent drainage is associated with the wound. No erythema of the skin surrounding the wound is present. No maceration of the skin of the periwound is noted. A dorsalis pedis pulse is easily palpable on the right. No significant edema of the right foot is present on exam today. ASSESSMENT AND PLAN: 1. Ulceration of plantar surface of right hallux. Dressing changes of Silverlon will be continued on a daily basis after cleansing and irrigation. Gauze will be continued as a secondary dressing. I will see Mr. Cole again in one week. 2. Diabetes mellitus. The patient's Accu-Chek in clinic today is 459. The patient has been told that for optimal wound healing, his blood glucoses should remain below 150. 3. Ischemic cardiomyopathy. 4. Coronary artery disease. 5. Chronic obstructive pulmonary disease. 6. Hypertension. 7. Anemia. MTDD
[2017-04-27] MEDS ORDERED: Lidocaine 2% Jelly 5 ML TUBE ONE (14:27)
[2017-04-27] MEDS ORDERED: Sodium Chloride 0.9% 15 ML NEB ONE (14:27)
== END 2017-04-27 08:06 | disposition home or self-care (01) ==
LOC: WCC 08:05
PROVIDERS: ATTEND Family Medicine
DX: E11.621 Type 2 diabetes mellitus with foot ulcer (principal); L97.519 Non-pressure chronic ulcer of other part of right foot with unspecified severity; I25.5 Ischemic cardiomyopathy; I25.10 Atherosclerotic heart disease of native coronary artery without angina pectoris; J44.9 Chronic obstructive pulmonary disease, unspecified; I10 Essential (primary) hypertension; D64.9 Anemia, unspecified
CPT/HCPCS: 11042; 36416; A4218

== ENCOUNTER 2017-05-04 08:02 | Outpatient (CLI) | payer OTHER ==
--- NOTE | 2017-05-04 08:51 | PRG ---
DATE OF SERVICE: 05/04/2017 HISTORY: Mr. Yifan Cole is a very pleasant 57-year-old gentleman who presents to the Wound Ce nter for evaluation of an ulceration of the plantar surface of the right hallux. The patient stated at the time of the previous visit that the ulceration of the plantar surface of the right hallux had been present for approximately 1 year. He stated that the ulceration developed in the region of call us. After being seen in the Wound Center, the patient was placed on dressing changes of Silverlon on a daily basis after cleansing and irrigation. PHYSICAL EXAMINATION: VITAL SIGNS: Temperature 97.8, pulse 73, blood pressure 152/68. Accu-Chek 488. EXTREMITIES: An ulceration of the plantar surface of the right hallux is present which measures appr oximately 0.8 x 0.7 cm. The dimensions of the wound at the time of the patient's last visit were wallace roximately 0.5 x 0.9 cm. Granulation tissue is present within the wound margins. Necrotic and nonvi able tissue present within the wound margins was debrided with an excisional full-thickness debrideme nt with the use of a curet. Undermining desiccated tissue and callus at the periphery of the wound w ere eliminated with the use of scissors. No purulent drainage is associated with the wound. No eryt triston of the skin surrounding the wound is present. No maceration of the skin of the periwound is not ed. A dorsalis pedis pulse is easily palpable on the right. No significant edema of the right foot is present on exam today. ASSESSMENT AND PLAN: 1. Ulceration of plantar surface of right hallux. Dressing changes of Silverlon will be continued o n a daily basis after cleansing and irrigation, 4 x 4s and Kerlix will be utilized as secondary dress ings. I will see Mr. Cole again in 2 weeks. 2. Diabetes mellitus. The patient's Accu-Chek in clinic today is 488. The patient has been told ag pamela that for optimal wound healing, his blood glucoses should remain below 150. 3. Ischemic cardiomyopathy. 4. Coronary artery disease. 5. Chronic obstructive pulmonary disease. 6. Hypertension. 7. Anemia.
[2017-05-04] MEDS ORDERED: Sodium Chloride 0.9% 15 ML NEB ONE (09:00)
[2017-05-04] MEDS ORDERED: Lidocaine 2% Jelly 5 ML TUBE ONE (09:00)
== END 2017-05-04 08:03 | disposition home or self-care (01) ==
LOC: WCC 08:02
PROVIDERS: ATTEND Family Medicine
DX: E11.621 Type 2 diabetes mellitus with foot ulcer (principal); L97.519 Non-pressure chronic ulcer of other part of right foot with unspecified severity; I25.5 Ischemic cardiomyopathy; I25.10 Atherosclerotic heart disease of native coronary artery without angina pectoris; J44.9 Chronic obstructive pulmonary disease, unspecified; I10 Essential (primary) hypertension; D64.9 Anemia, unspecified
CPT/HCPCS: 11042; 36416; A4218

== ENCOUNTER 2017-05-18 08:04 | Outpatient (CLI) | payer OTHER ==
--- NOTE | 2017-05-18 09:02 | PRG ---
DATE OF SERVICE: 05/18/2017 HISTORY: Mr. Yifan Cole is a very pleasant 57-year-old gentleman who presents to the Wound Center for evaluation of an ulceration of the plantar surface of the right hallux. The patient state d at the time of a previous visit that the ulceration of the plantar surface of the right hallux had been present for approximately 1 year. He stated that the ulceration developed in a region of callus . After being seen in the Wound Center, the patient was placed on dressing changes of Silverlon on a daily basis after cleansing and irrigation. The patient admits to smoking. PHYSICAL EXAMINATION: VITAL SIGNS: Temperature 97.7, pulse 75, respirations 16, blood pressure 114/63. Accu-Chek 395. EXTREMITIES: An ulceration of the plantar surface of the right hallux is present which measures appr oximately 0.3 x 0.8 cm. Granulation tissue is present within the wound margins. Necrotic and nonvia ble tissue present within the wound margins was debrided with an excisional full-thickness debridemen t with the use of a curet. Undermining desiccated tissue and callus at the periphery of the wound we re eliminated with the use of scissors. Post-debridement measurements are approximately 1.0 x 0.6 cm . No purulent drainage is associated with the wound. No erythema of the skin surrounding the wound is present. No maceration of the skin of the periwound is noted. No significant edema of the right great toe is present on exam today. ASSESSMENT AND PLAN: 1. Ulceration of plantar surface of right hallux. Dressing changes of Silverlon will be continued o n a daily basis after cleansing and irrigation, 4 x 4s and Kerlix will be continued as secondary dres sings. I will see Mr. Cole again in 2 weeks. The patient has been asked to discontinue the use of all tobacco. He has also been instructed as to the importance of offloading in achieving the healin g of his ulceration. 2. Diabetes mellitus. The patient's Accu-Chek in clinic today is 395. The patient has been reminde d that for optimal wound healing, his blood glucoses should remain below 150. 3. Ischemic cardiomyopathy. 4. Coronary artery disease. 5. Chronic obstructive pulmonary disease. 6. Hypertension. 7. Anemia.
[2017-05-18] MEDS ORDERED: Sodium Chloride 0.9% 15 ML NEB ONE (19:49)
[2017-05-18] MEDS ORDERED: Lidocaine 2% Jelly 5 ML TUBE ONE (19:49)
== END 2017-05-18 08:05 | disposition home or self-care (01) ==
LOC: WCC 08:04
PROVIDERS: ATTEND Family Medicine
DX: E11.621 Type 2 diabetes mellitus with foot ulcer (principal); L97.419 Non-pressure chronic ulcer of right heel and midfoot with unspecified severity; I25.10 Atherosclerotic heart disease of native coronary artery without angina pectoris; J44.9 Chronic obstructive pulmonary disease, unspecified; I25.5 Ischemic cardiomyopathy; I10 Essential (primary) hypertension; D64.9 Anemia, unspecified
CPT/HCPCS: 36416; A4218

== ENCOUNTER 2017-06-01 08:23 | Outpatient (CLI) | payer OTHER ==
--- NOTE | 2017-06-01 08:56 | PRG ---
DATE OF SERVICE: 06/01/2017 HISTORY: Mr. Yifan Cole is a very pleasant 57-year-old gentleman who presents to the Wound Center for evaluation of an ulceration of the plantar surface of the right hallux. The patient state d at the time of the previous visit that the ulceration of the plantar surface of the right hallux garcias d been present for approximately 1 year. He stated that the ulceration developed in the region of ca llus. After being seen in the Wound Center, the patient was placed on dressing changes of Silverlon on a daily basis after cleansing and irrigation. The patient admits to smoking. He also states that his blood glucoses have been elevated. PHYSICAL EXAMINATION: VITAL SIGNS: Temperature 97.5, pulse 78, respirations 18, blood pressure 138/76, Accu-Chek 469. EXTREMITIES: An ulceration of the plantar surface of the right hallux is present which measures appr oximately 0.6 x 0.7 cm. Granulation tissue is present within the wound margins. Necrotic and nonvia ble tissue present within the wound margins was debrided with an excisional full-thickness debridemen t with the use of a curette and scissors. Undermining desiccated tissue and callus at the periphery of the wound were eliminated with the use of scissors. Post-debridement measurements are approximate ly 0.6 x 0.7 cm. No purulent drainage is associated with the wound. No erythema of the skin surroun ding the wound is present. No maceration of the skin of the periwound is noted. No significant radha a of the right great toe is present on exam today. ASSESSMENT AND PLAN: 1. Ulceration of plantar surface of right hallux. Dressing changes of Silverlon will be continued o n a daily basis after cleansing and irrigation, 4 x 4s and Kerlix will be continued as secondary dres sings. I will see Mr. Cole again in two weeks. The patient has again been instructed as to the im portance of offloading in achieving the healing of his ulceration. 2. Diabetes mellitus. The patient's Accu-Chek in clinic today is 469. The patient has been asked t o try to keep his blood glucoses less than 150. 3. Ischemic cardiomyopathy. 4. Coronary artery disease. 5. Chronic obstructive pulmonary disease. 6. Hypertension. 7. Anemia.
[2017-06-01] MEDS ORDERED: Lidocaine 2% Jelly 5 ML TUBE ONE (19:51)
[2017-06-01] MEDS ORDERED: Sodium Chloride 0.9% 15 ML NEB ONE (19:51)
== END 2017-06-01 08:24 | disposition home or self-care (01) ==
LOC: WCC 08:23
PROVIDERS: ATTEND Family Medicine
DX: E11.621 Type 2 diabetes mellitus with foot ulcer (principal); L97.519 Non-pressure chronic ulcer of other part of right foot with unspecified severity; I10 Essential (primary) hypertension; D64.9 Anemia, unspecified; J44.9 Chronic obstructive pulmonary disease, unspecified; I25.10 Atherosclerotic heart disease of native coronary artery without angina pectoris; I25.5 Ischemic cardiomyopathy
CPT/HCPCS: 11042; 36416; A4218

== ENCOUNTER 2017-06-04 11:20 | Emergency (ER) | payer OTHER ==
[2017-06-04] MEDS ORDERED: Lidocaine 1% PF 5 ML VIAL ONE (11:40)
[2017-06-04 13:25] LABS: Base Excess-Venous 0.5 mmol/L (0 (+/- 2.5)); Bicarbonate (HCO3v) 25.3 mmol/L (1.0-85.0); CO2 Tension (PvCO2) 40.1 mmHg (41.0-51.0); Hemoglobin - Calc 16.4 g/dL (12.0-18.0); Potassium 4.4 mmol/L (3.4-4.7); T. Carbon Dioxide 26.5 mmol/L (1.0-85.0); pH (Venous) 7.408 (7.35-7.45); vO2 Saturation-calc 71.1 % (94-98)
[2017-06-04] MEDS ORDERED: Clindamycin/D5W 900 mg/50 ml Premix Bag ONE (13:29)
[2017-06-04 13:40] LABS: #Basophils 0.1 thou/uL (0.0-0.2); #Eosinphils 0.3 thou/uL (0.0-0.7); #Lymphocytes 2.5 thou/uL (1.20-3.40); #Neutrophils 7.1 thou/uL (1.40-6.50); %Basophils 0.6 % (0.0-1.0); %Eosinophils 2.3 % (0.0-10.0); %Lymphocytes 22.7 % (21.0-51.0); %Monocytes 9.3 % (0.0-10.0); %Neutrophils 65.1 % (42.0-75.0); Hemoglobin 14.4 g/dL (14.0-18.0); Mean Corpuscular HGB CONC 34.2 g/dL (32.0-36.0); Mean Corpuscular Hemoglobin 29.7 pg (27.0-31.0); Mean Platelet Volume 7.1 fL (7.4-10.4); Platelet Count 236 thou/uL (130-400); RBC Distribution Width 12.9 % (11.5-14.5); Red Blood Cell (RBC) Count 4.83 mill/uL (4.70-6.10); White Blood Cell (WBC) Count 10.9 thou/uL (4.8-10.8)
--- NOTE | 2017-06-04 13:40 | RAD ---
THREE VIEWS LEFT HAND: Indication: Swelling of the left small finger. Comparison: None FINDINGS: There is prominent soft tissue swelling of the left small finger. No radiopaque foreign body is evide nt. No acute osseous abnormality is noted. No bone destructive changes are evident. IMPRESSION: Soft tissue swelling of the left small finger. No acute fracture or subluxation. POS: [facility]
[2017-06-04 13:58] LABS: ALT (SGPT) 16 U/L (8-55); AST (SGOT) 12 U/L (5-34); Alkaline Phosphatase 137 U/L (40-150); Anion Gap 10 mmol/L (10-20); BUN (Urea Nitrogen) 25 mg/dL (8.4-25.7); Bilirubin, Total 0.5 mg/dL (0.2-1.2); Calc. Creatinine Clearance 0 mL/min (70-130); Calcium 9.3 mg/dL (7.8-10.44); Carbon Dioxide 25 mmol/L (22-29); Chloride 101 mmol/L (98-107); Estimated GFR-MDRD 59; Globulin 3.7 g/dL (2.4-3.5); Glucose 413 mg/dL (70-105); Potassium 4.4 mmol/L (3.5-5.1); Protein, Total 7.7 g/dL (6.0-8.3); Sodium 132 mmol/L (136-145)
[2017-06-04] MEDS ORDERED: Ketorolac Tromethamine 30 MG/ML VIAL ONE (15:43)
== END 2017-06-04 15:57 | disposition home or self-care (01) ==
LOC: ERS 11:20
DX: L03.012 Cellulitis of left finger (principal); E11.65 Type 2 diabetes mellitus with hyperglycemia; J44.9 Chronic obstructive pulmonary disease, unspecified; I25.10 Atherosclerotic heart disease of native coronary artery without angina pectoris; I25.2 Old myocardial infarction; F17.210 Nicotine dependence, cigarettes, uncomplicated; Z79.899 Other long term (current) drug therapy; Z79.84 Long term (current) use of oral hypoglycemic drugs
CPT/HCPCS: 26011; 36416; 80053; 82330; 82803; 85025; 96365; 96375; J1885; J2001; J3490

== ENCOUNTER 2017-06-15 07:57 | Outpatient (CLI) | payer OTHER ==
--- NOTE | 2017-06-15 08:40 | PRG ---
DATE OF SERVICE: 06/15/2017 HISTORY: Mr. Yifan Cole is a very pleasant 57-year-old gentleman who presents to the Wound Ce nter for evaluation of an ulceration of the plantar surface of the right hallux. The patient stated at the time of a previous visit that the ulceration of the plantar surface of the right hallux had be en present for approximately 1 year. He stated that the ulceration developed in a region of callus. After being seen in the Wound Center, the patient was placed on dressing changes of Silverlon on a d aily basis after cleansing and irrigation. PHYSICAL EXAMINATION: VITAL SIGNS: Temperature 97.5, pulse 76, respirations 18, blood pressure 159/66. Accu-Chek 361. EXTREMITIES: An ulceration of the plantar surface of the right hallux is present which measures appr oximately 0.5 x 0.3 cm. Granulation tissue is present within the wound margins. Necrotic and nonvia ble tissue present within the wound margins was debrided with an excisional full-thickness debridemen t with the use of a curette and scissors. Undermining desiccated tissue and callus at the periphery of the wound where eliminated with the use of scissors. Post-debridement measurements are approximat vladimir 0.7 x 0.6 cm. No purulent drainage is associated with the wound. No erythema of the skin surrou nding the wound is present. No maceration of the skin of the periwound is noted. No significant abelino ma of the right great toe is present on exam today. ASSESSMENT AND PLAN: 1. Ulceration of plantar surface of right hallux. Dressing changes of Promogran and Silverlon will be initiated today. These dressing changes are to be continued on a daily basis after cleansing and irrigation, 4 x 4s and Kerlix will be utilized as secondary dressings. I will see Mr. Cole again i n two weeks. The patient again has been reminded as to the importance of offloading in achieving the healing of his ulceration. 2. Diabetes mellitus. The patient's Accu-Chek in clinic today is 361. The patient again has been a sked to try to keep his blood glucoses less than 150. 3. Ischemic cardiomyopathy. 4. Coronary artery disease. 5. Chronic obstructive pulmonary disease. 6. Hypertension. 7. Anemia.
[2017-06-15] MEDS ORDERED: Lidocaine 2% Jelly 5 ML TUBE ONE (14:51)
== END 2017-06-15 07:58 | disposition home or self-care (01) ==
LOC: WCC 07:57
PROVIDERS: ATTEND Family Medicine
DX: E11.621 Type 2 diabetes mellitus with foot ulcer (principal); L97.519 Non-pressure chronic ulcer of other part of right foot with unspecified severity; I25.5 Ischemic cardiomyopathy; I25.10 Atherosclerotic heart disease of native coronary artery without angina pectoris; J44.9 Chronic obstructive pulmonary disease, unspecified; I10 Essential (primary) hypertension; D64.9 Anemia, unspecified
CPT/HCPCS: 11042; 36416

== ENCOUNTER 2017-06-29 07:58 | Outpatient (CLI) | payer OTHER ==
--- NOTE | 2017-06-29 08:57 | PRG ---
DATE OF SERVICE: 06/29/2017 HISTORY: Mr. Yifan Cole is a very pleasant 57-year-old gentleman who presents to the Wound Center for evaluation of an ulceration of the plantar surface of the right hallux. The patient stated at the time of a previous visit that the ulceration of the plantar surface of the right hallux had been present for approximately 1 year. He stated that the ulceration developed in a region of callus. After being seen in the Wound Center, the patient was placed on dressing changes of Silverlon on a daily basis after cleansing and irrigation. Today Mr. Cole presents with a new wound of the plantar surface of the left foot over the head of the first metatarsal. PHYSICAL EXAMINATION: VITAL SIGNS: Temperature 97.4, pulse 67, respirations 18, blood pressure 131/ 65. Accu-Chek 468. EXTREMITIES: The ulceration of the plantar surface of the right hallux has healed completely. The ulceration of the plantar surface of the left foot over the first metatarsal head measures approximately 0.1 x 0.1 cm. Granulation tissue is present within the wound margins. Necrotic and nonviable tissue present within the wound margins was debrided with an excisional full-thickness debridement with the use of a curette and scissors. Undermining, desiccated tissue, and callus at the periphery of the wound were eliminated with the use of scissors. No purulent drainage is associated with the wound. No erythema of the skin surrounding the wound is present. No maceration of the skin of the periwound is noted. No significant edema of the left foot is present on exam today. ASSESSMENT AND PLAN: 1. Ulceration of plantar surface of right hallux. As stated above, this wound has healed completely. A new wound of the plantar surface of the left foot over the head of the first metatarsal is present on exam today. Dressing changes of Promogran and Silverlon for the left foot wound are to be performed on a daily basis after cleansing and irrigation. 4 x 4s and Kerlix will be utilized as secondary dressings. I will see Mr. Cole again in two weeks. The patient has been reminded as to the importance of offloading in achieving the healing of his ulceration. The patient has also been asked to discontinue the use of all tobacco. 2. Diabetes mellitus. The patient's Accu-Chek in clinic today is 468. The patient has been told that for optimal wound healing, his blood glucoses should remain less than 150. 3. Ischemic cardiomyopathy. 4. Coronary artery disease. 5. Chronic obstructive pulmonary disease. 6. Hypertension. 7. Anemia. MTDD
== END 2017-06-29 07:59 | disposition home or self-care (01) ==
LOC: WCC 07:58
PROVIDERS: ATTEND Family Medicine
DX: E11.621 Type 2 diabetes mellitus with foot ulcer (principal); L97.519 Non-pressure chronic ulcer of other part of right foot with unspecified severity; J44.9 Chronic obstructive pulmonary disease, unspecified; I25.10 Atherosclerotic heart disease of native coronary artery without angina pectoris; I10 Essential (primary) hypertension; D64.9 Anemia, unspecified; I25.5 Ischemic cardiomyopathy; F17.200 Nicotine dependence, unspecified, uncomplicated
CPT/HCPCS: 11042; 36416

== ENCOUNTER 2017-07-13 08:04 | Outpatient (CLI) | payer OTHER ==
--- NOTE | 2017-07-13 08:48 | PRG ---
DATE OF SERVICE: 07/13/2017 HISTORY: Mr. Yifan Cole is a very pleasant 57-year-old gentleman, who presents to the Wound C enter for evaluation of an ulceration of the plantar surface of the right hallux. The patient stated at the time of a previous visit that the ulceration of the plantar surface of the right hallux had b een present for approximately 1 year. He stated that the ulceration developed in the region of callu s. After being seen in the Wound Center, the patient was placed on dressing changes of Silverlon on a daily basis after cleansing and irrigation. Later Promogran was added to the patient's regimen. A t the time of the patient's last visit, Mr. Cole presented with a new wound of the plantar surface of the left foot over the head of the first metatarsal. PHYSICAL EXAMINATION: VITAL SIGNS: Temperature 97.5, pulse 65, respirations 18, blood pressure 131/63. Accu-Chek 467. EXTREMITIES: The ulceration of the plantar surface of the left foot over the head of the first metat arsal has healed completely. The ulceration of the plantar surface of the right foot over the right hallux measures approximately 0.4 x 0.5 cm. Granulation tissue was present within the wound margins. Necrotic and nonviable tissue present within the wound margins was debrided with an excisional full -thickness debridement with the use of a curette and scissors. Undermining desiccated tissue and lu saud at the periphery of the wound were eliminated with the use of scissors. No purulent drainage is associated with the wound. No erythema of the skin surrounding the wound is present. No maceration of the skin of the periwound is noted. No significant edema of the right foot is present on exam tod ay. ASSESSMENT AND PLAN: 1. Ulceration of plantar surface of the right hallux. Dressing changes of Promogran and Silverlon a re to be performed on a daily basis after cleansing and irrigation, 4 x 4s and Kerlix will be utilize d as secondary dressings. I will see Mr. Cole again in 2 weeks. The patient has been reminded as to the importance of offloading in achieving the healing of his ulceration. 2. Diabetes mellitus. The patient's Accu-Chek in clinic today is 467. The patient has been reminde d that for optimal wound healing, his blood glucoses should remain below 150. 3. Ischemic cardiomyopathy. 4. Coronary artery disease. 5. Chronic obstructive pulmonary disease. 6. Hypertension. 7. Anemia.
[2017-07-13] MEDS ORDERED: Lidocaine 2% Jelly 5 ML TUBE ONE (16:02)
[2017-07-13] MEDS ORDERED: Sodium Chloride 0.9% 15 ML NEB ONE (16:02)
== END 2017-07-13 08:05 | disposition home or self-care (01) ==
LOC: WCC 08:04
PROVIDERS: ATTEND Family Medicine
DX: E11.621 Type 2 diabetes mellitus with foot ulcer (principal); L97.419 Non-pressure chronic ulcer of right heel and midfoot with unspecified severity; I25.2 Old myocardial infarction; I25.10 Atherosclerotic heart disease of native coronary artery without angina pectoris; I25.5 Ischemic cardiomyopathy; J44.9 Chronic obstructive pulmonary disease, unspecified; D46.9 Myelodysplastic syndrome, unspecified; I10 Essential (primary) hypertension
CPT/HCPCS: 36416; A4218

== ENCOUNTER 2017-08-05 08:15 | Outpatient (CLI) | payer OTHER ==
--- NOTE | 2017-08-05 10:42 | PRG ---
DATE OF SERVICE: 08/05/2017 HISTORY: Mr. Yifan Cole is a very pleasant 57-year-old gentleman who presents to the Wound Center for evaluation of an ulceration of the plantar surface of the right hallux. The patient stated at the time of a previous visit that the ulceration of the plantar surface of the right hallux had been present for approximately 1 year. He stated that the ulceration developed in a region of callus. After being seen in the Wound Center, the patient was placed on dressing changes of Silverlon on a daily basis after cleansing and irrigation. Later, Promogran was added to the patient's regimen. At the time of the patient's visit on 06/29/2017, Mr. Cole presented with a new wound of the plantar surface of the left foot over the head of the first metatarsal. PHYSICAL EXAMINATION: VITAL SIGNS: Temperature 97.5, pulse 69, respirations 18, blood pressure 114/ 58. Accu-Chek 467. EXTREMITIES: The ulceration of the plantar surface of the left foot over the head of the first metatarsal has healed completely and remains healed. The ulceration of the plantar surface of the right foot over the right hallux measures approximately 0.6 x 0.4 cm. Granulation tissue is present within the wound margins. Necrotic and nonviable tissue present within the wound margins was debrided with an excisional full-thickness debridement with the use of scissors. Undermining, desiccated tissue, and callus at the periphery of the wound were eliminated with the use of scissors. No purulent drainage is associated with the wound. No erythema of the skin surrounding the wound is present. No maceration of the skin of the periwound is noted. No significant edema of the right foot is present on exam today. ASSESSMENT AND PLAN: 1. Ulceration of plantar surface of the right hallux. Dressing changes of Promogran and Silverlon will be continued on a daily basis after cleansing and irrigation. 4 x 4s will be utilized as secondary dressings. I will see Mr. Cole again on 09/09/2017. The patient has obtained inserts for more optimal offloading of the plantar surface of the right hallux and the plantar surface of the left hallux. 2. Diabetes mellitus. The patient's Accu-Chek in clinic today is 467. The patient has been reminded that for optimal wound healing, his blood glucoses should remain below 150. 3. Ischemic cardiomyopathy. 4. Coronary artery disease. 5. Chronic obstructive pulmonary disease. 6. Hypertension. 7. Anemia. MTDD
== END 2017-08-05 08:16 | disposition home or self-care (01) ==
LOC: WCC 08:15
PROVIDERS: ATTEND Family Medicine
DX: E11.621 Type 2 diabetes mellitus with foot ulcer (principal); L97.519 Non-pressure chronic ulcer of other part of right foot with unspecified severity; I25.5 Ischemic cardiomyopathy; I25.10 Atherosclerotic heart disease of native coronary artery without angina pectoris; J44.9 Chronic obstructive pulmonary disease, unspecified; I10 Essential (primary) hypertension; D64.9 Anemia, unspecified
CPT/HCPCS: 11042; 36416

== ENCOUNTER 2017-09-06 07:34 | Inpatient (IN) | payer OTHER ==
[2017-09-06 08:01] LABS: #Basophils 0.1 thou/uL (0.0-0.2); #Lymphocytes 1.5 thou/uL (1.20-3.40); #Monocytes 2.5 thou/uL (0.11-0.59); #Neutrophils 12.8 thou/uL (1.40-6.50); %Basophils 0.4 % (0.0-1.0); %Eosinophils 0.1 % (0.0-10.0); %Lymphocytes 8.7 % (21.0-51.0); %Monocytes 14.7 % (0.0-10.0); %Neutrophils 76.1 % (42.0-75.0); Hemoglobin 14.2 g/dL (14.0-18.0); Mean Corpuscular HGB CONC 33.4 g/dL (32.0-36.0); Mean Corpuscular Hemoglobin 29.3 pg (27.0-31.0); Mean Corpuscular Volume 87.9 fL (78.0-98.0); Mean Platelet Volume 7.5 fL (7.4-10.4); Platelet Count 187 thou/uL (130-400); RBC Distribution Width 13.3 % (11.5-14.5); Red Blood Cell (RBC) Count 4.85 mill/uL (4.70-6.10); White Blood Cell (WBC) Count 16.8 thou/uL (4.8-10.8)
[2017-09-06 08:21] LABS: ALT (SGPT) 14 U/L (8-55); AST (SGOT) 15 U/L (5-34); Albumin 3.6 g/dL (3.5-5.0); Alkaline Phosphatase 70 U/L (40-150); Anion Gap 16 mmol/L (10-20); BUN (Urea Nitrogen) 27 mg/dL (8.4-25.7); CK (CPK) 153 U/L (30-200); Calc. Creatinine Clearance 0 mL/min (70-130); Calcium 8.9 mg/dL (7.8-10.44); Carbon Dioxide 21 mmol/L (22-29); Chloride 96 mmol/L (98-107); Estimated GFR-MDRD 43; Globulin 3.6 g/dL (2.4-3.5); Glucose 338 mg/dL (70-105); Potassium 3.7 mmol/L (3.5-5.1); Protein, Total 7.2 g/dL (6.0-8.3); Sodium 129 mmol/L (136-145)
[2017-09-06 08:25] LABS: CKMB 0.9 ng/mL (0-6.6); Troponin I 0.031 ng/mL (< 0.028)
[2017-09-06] MEDS ORDERED: cefTRIAXone\\ROCEPHIN 2 GM VIAL ONE (09:06)
--- NOTE | 2017-09-06 09:10 | RAD ---
RADIOGRAPH OF CHEST 2 VIEW SERIES: COMPARISON: 08/17/15. INDICATION: Chest pain. FINDINGS: There is abnormal alveolar and interstitial opacity of the left lung, predominantly at the lateral mi d aspect. Mild interstitial prominence of the right lung is seen. The cardiac silhouette is enlarge d and there is prominence of the central pulmonary vasculature. No additional significant interval c hange. IMPRESSION: Asymmetric parenchymal opacification of the left lung. This may relate to atypical pneumonia or alte rnatively asymmetric edema. Recommend followup to resolution. Findings called to The patient's physician of the ER, Dr. Randy Campbell at 0845 hours 09/06/17. CODE CR
[2017-09-06] MEDS ORDERED: Azithromycin 500 MG VIAL ONE ×2 (09:47→09:51)
[2017-09-06 13:22] LABS: CKMB 1.9 ng/mL (0-6.6); Troponin I 0.024 ng/mL (< 0.028)
[2017-09-06] MEDS ORDERED: Insulin Regular 300 UNITS/3 ML VIAL SC SCH (14:00)
[2017-09-06] MEDS ORDERED: Sodium Chloride 0.9% 1,000 ML IV SCH (14:00)
[2017-09-06 15:42] LABS: CKMB 1.8 ng/mL (0-6.6); Troponin I 0.031 ng/mL (< 0.028)
[2017-09-06] MEDS ORDERED: Dextrose 5% in Water 1,000 ML IV PRN (16:26)
[2017-09-06] MEDS ORDERED: Ondansetron HCl/PF 4 MG/2 ML Vial IVP PRN (16:26)
[2017-09-06] MEDS ORDERED: Acetaminophen 500 MG TAB PO PRN (16:26)
[2017-09-06] MEDS ORDERED: HumaLOG 300 UNITS/3 ML VIAL SC PRN (16:26)
[2017-09-06] MEDS ORDERED: Ondansetron ODT 4 MG TAB PO PRN (16:26)
[2017-09-06] MEDS ORDERED: cloNIDine 0.1 MG TAB PO PRN (16:26)
[2017-09-06] MEDS ORDERED: Benzonatate 100 MG CAP PO PRN (16:26)
[2017-09-06] MEDS ORDERED: hydrALAZINE 20 MG/ML VIAL SLOW IVP PRN (16:26)
[2017-09-06] MEDS ORDERED: Dextrose 50% Abboject 50 ML SYRINGE SLOW IVP PRN (16:26)
--- NOTE | 2017-09-06 17:54 | HP ---
DATE OF ADMISSION: 09/06/2017 PRIMARY CARE PHYSICIAN: Dr. Layo Lugo. CHIEF COMPLAINT: Weakness and dizziness. HISTORY OF PRESENT ILLNESS: This is a 57-year-old male who presents to [facility] Emergency Department complaining of weakness and dizziness progressive over the last 4 8 hours. The patient states he went to his regular heart failure clinic appointment and was apparent ly referred to the emergency department for evaluation after he complained of similar symptoms. The patient denied any specific increased lower extremity swelling or weight gain. The patient states he has been compliant with his chronic medication regimen in the context of known ischemic cardiomyopat hy with ejection fraction in the 20%-25% range in 2014. The patient also admits to longstanding hist ory of coronary artery disease with multiple myocardial infarctions. The patient admits to increased cough, shortness of breath with general nonproductive cough. The patient denied any specific exposu re history, travel, or family members with similar symptoms. The patient does admit to increased ellen rtness of breath especially when walking and associated with the cough. The patient denied any speci fic documented fever, chills, nausea, vomiting or diarrhea. In the emergency room, the patient under went general evaluation including portable chest imaging showing questionable early infiltrate in the left lower lung zone. The patient received IV Rocephin and Zithromax for suspected developing pneum onia. PAST MEDICAL HISTORY: 1. Myocardial infarction in 2014. 2. Coronary artery disease. 3. Chronic obstructive pulmonary disease. 4. Tobacco abuse, ongoing. 5. Diabetes mellitus type 2. 6. Hypertension. 7. Dyslipidemia. 8. Ischemic cardiomyopathy with ejection fraction 20%-25% in 2014. 9. Chronic systolic heart failure. PAST SURGICAL HISTORY: 1. Status post coronary artery bypass grafting in 2014. 2. Status post cardiac catheterization. CURRENT MEDICATIONS: Based on previous admission, 1. Amiodarone 200 mg 1 tab p.o. daily. 2. Aspirin 325 mg 1 tab p.o. daily. 3. Coreg 3.125 mg p.o. b.i.d. 4. Lasix 40 mg p.o. daily. 5. Glyburide 5 mg p.o. daily. 6. Lisinopril 2.5 mg p.o. daily. 7. Metformin 500 mg p.o. b.i.d. 8. Zocor 20 mg p.o. daily. ALLERGIES: No known drug allergies. FAMILY HISTORY: Father was diagnosed with colon cancer. Mother with myocardial infarction. Multipl e family members with diabetes mellitus. SOCIAL HISTORY: The patient resides in [place], [place]. Smokes up to a pack of cigarettes daily since age of 19. No alcohol abuse. No illicit drug use. Unemployed. REVIEW OF SYSTEMS: The following complete review of systems was negative, unless otherwise mentioned in the HPI or below: Constitutional: Weight loss or gain, ability to conduct usual activities. Skin: Rash, itching. Eyes: Double vision, pain. ENT/Mouth: Nose bleeding, neck stiffness, pain, tenderness. Cardiovascular: Palpitations, dyspnea on exertion, orthopnea. Respiratory: Shortness of breath, wheezing, cough, hemoptysis, fever or night sweats. Gastrointestinal: Poor appetite, abdominal pain, heartburn, nausea, vomiting, constipation, or diarrhea. Genitourinary: Urgency, frequency, dysuria, nocturia. Musculoskeletal: Pain, swelling. Neurologic/Psychiatric: Anxiety, depression. Allergy/Immunologic: Skin rash, bleeding tendency. PHYSICAL EXAMINATION: VITAL SIGNS: On admission, blood pressure 130/64, pulse 94, respiratory rate 16, temperature 98.6 de grees Fahrenheit, O2 saturation 94% on room air. GENERAL APPEARANCE: This is a 57-year-old male, alert and oriented x3, pleasant, in no acu te distress. HEENT: Pupils are equal, round, and reactive to light and accommodation. Extraocular muscles are in tact. No scleral icterus, no conjunctival injection. Nares patent. OP is clear. Teeth in poor rep air with nicotine staining. NECK: Supple, no cervical adenopathy, no thyromegaly, no carotid bruits, no JVD appreciated. Cervic al spine with full active and passive range of motion. No meningeal signs appreciated. CHEST: Diminished breath sounds in the bases bilaterally with occasional rhonchi in the left lung ba se. CARDIOVASCULAR: S1, S2 with distant heart sounds. No murmur, rub or gallop appreciated. ABDOMEN: Obese, soft, nontender, nondistended. Bowel sounds are positive in all four quadrants. No hepatosplenomegaly, no abdominal bruits, no rebound or guarding appreciated. EXTREMITIES: Warm and dry with fair turgor. No clubbing, cyanosis or asymmetric edema appreciated. Pulses palpable distally at the dorsalis pedis, posterior tibial, and popliteal arteries bilaterally . Capillary refill less than 2 seconds. NEUROLOGIC: Cranial nerves II-XII are grossly intact. No focal or lateralizing signs appreciated. PERTINENT LABORATORY AND X-RAY FINDINGS: Sodium 129, potassium 3.7, chloride 96, CO2 of 21, BUN 27, creatinine 1.68, estimated GFR 43, glucose 338, calcium 8.9. LFTs within normal limits. Troponin I ranged between 0.024-0.031. BNP 319, previously noted 384 on 08/16/2015. CBC showed a white blood c ell count 16.8, hemoglobin 14, hematocrit 43, platelet count 187 with 76% neutrophils. Portable ches t x-ray dated 09/06/2017 showed asymmetric opacification of the left lung base. EKG dated 09/06/2017 by my interpretation shows sinus mechanism with occasional PVCs. Normal R-wave progression noted in the precordial leads. Normal axis. No acute ST-T wave changes appreciated. ASSESSMENT AND PLAN: 1. Community-acquired pneumonia, left lower lobe. The patient will be admitted to the telemetry [facility]. Suspect gram-positive cocci. We will continue Rocephin 2 grams IV q.24 hours with additional Lev aquin 750 mg IV daily. DuoNeb q.4 hours p.r.n. 2. Acute kidney injury. We will avoid nephrotoxic agents and contrast media. Continue intravenous normal saline at 75 mL per hour. Repeat serial creatinine. 3. Hyponatremia. Appears chronic. We will continue low volume normal saline and repeat sodium leve l in the a.m. 4. Diabetes mellitus type 2. Labile. Insulin sliding scale for reflexive coverage. Confirm home d iabetic regimen. ADA diet. Serial Accu-Cheks before meals and at bedtime. 5. Ischemic cardiomyopathy. Appears compensated currently. A 2D transthoracic echocardiogram to as sess current ejection fraction. No evidence of acute volume overload. Continue aspirin 325 mg daily . Continue Coreg 3.125 mg b.i.d. 6. Generalized weakness. Suspect secondary to #1. Continue treatment as outlined in #1. Walking p rogram for ambulation. 7. Tobacco abuse. We will offer smoking cessation resources prior to discharge. 8. Prophylaxis. Sequential compression devices while in bed. Pepcid 20 mg p.o. b.i.d. 9. Tobacco cessation resources. 10. Code status is FULL. Surrogate medical decision maker is patient's brother.
[2017-09-06] MEDS: HumaLOG 300 UNITS/3 ML VIAL SC PRN (18:43)
[2017-09-06] MEDS ORDERED: Acetaminophen 500 MG TAB PO SCH (19:15)
[2017-09-06] MEDS: Famotidine 20 MG TAB PO SCH (20:47)
[2017-09-07] MEDS: Sodium Chloride 0.9% 1,000 ML IV SCH ×3 (05:13→21:22)
[2017-09-07 05:21] LABS: ALT (SGPT) 10 U/L (8-55); AST (SGOT) 16 U/L (5-34); Alkaline Phosphatase 55 U/L (40-150); Anion Gap 14 mmol/L (10-20); BUN (Urea Nitrogen) 25 mg/dL (8.4-25.7); Bilirubin, Total 0.6 mg/dL (0.2-1.2); Calc. Creatinine Clearance 88 mL/min (70-130); Calcium 8.1 mg/dL (7.8-10.44); Carbon Dioxide 22 mmol/L (22-29); Chloride 99 mmol/L (98-107); Estimated GFR-MDRD 59; Globulin 3.1 g/dL (2.4-3.5); Glucose 236 mg/dL (70-105); Potassium 3.9 mmol/L (3.5-5.1); Protein, Total 6.1 g/dL (6.0-8.3); Sodium 131 mmol/L (136-145)
[2017-09-07 06:18] LABS: Band 12 % (5-11); Hemoglobin 12.2 g/dL (14.0-18.0); Lymphocytes 8 % (21-51); MDiff Complete? YES; Mean Corpuscular HGB CONC 33.8 g/dL (32.0-36.0); Mean Corpuscular Hemoglobin 29.6 pg (27.0-31.0); Mean Corpuscular Volume 87.6 fL (78.0-98.0); Mean Platelet Volume 7.5 fL (7.4-10.4); Monocytes 11 % (0-10); Neutrophil 69 % (42-75); Platelet Count 158 thou/uL (130-400); RBC Distribution Width 13.4 % (11.5-14.5); Red Blood Cell (RBC) Count 4.12 mill/uL (4.70-6.10); White Blood Cell (WBC) Count 13.7 thou/uL (4.8-10.8)
[2017-09-07] MEDS: Famotidine 20 MG TAB PO SCH ×2 (08:38→20:48)
[2017-09-07] MEDS: HumaLOG 300 UNITS/3 ML VIAL SC PRN ×3 (08:38→18:11)
[2017-09-07 08:57] VITALS: BMI 31.4
[2017-09-07] MEDS ORDERED: cefTRIAXone\\ROCEPHIN 2 GM in Sodium Chloride 0.9% 100 ML IVPB SCH (09:00)
[2017-09-07] MEDS ORDERED: Sodium Chloride 0.9% 1,000 ML IV SCH (20:04)
--- NOTE | 2017-09-07 20:06 | PDOC.PN ---
- Subjective Encounter Start Date: 09/07/17 Encounter Start Time: 19:50 Subjective: f/u for LLL CAP on Rocephin and Levaquin. Feeling better overall. Ambulatin -: in halls. Appetite improved. No n/v. - Objective Resuscitation Status: Resuscitation Status FULL:Full Resuscitation MAR Reviewed: Yes Vital Signs & Weight: Vital Signs (12 hours) Temp Pulse Resp BP Pulse Ox 09/07/17 19:15 83 16 94 L 09/07/17 16:35 98.1 F 94 18 153/67 H 94 L 09/07/17 13:34 80 14 92 L 09/07/17 11:48 98.2 F 89 18 122/57 L 09/07/17 09:55 84 16 92 L Weight Admit Weight 208 lb 14.4 oz Weight 212 lb 14.4 oz I&O: 09/06/17 09/07/17 09/08/17 06:59 06:59 06:59 Intake Total 2756 Output Total 1075 Balance 1681 Result Diagrams: 09/07/17 04:42 09/07/17 04:42 Additional Labs: Accuchecks 09/07/17 09/07/17 09/07/17 17:06 11:05 06:05 POC Glucose 306 H 328 H 239 H 09/06/17 20:52 POC Glucose 184 H Microbiology 09/06/17 09:09 Venous blood - Right Hand Blood Culture - Preliminary Specimen has been received and culture in progress. No Growth to date. 09/06/17 09:09 Venous blood - Left Arm Blood Culture - Preliminary Specimen has been received and culture in progress. No Growth to date. Laboratory Tests 09/06/17 09/06/17 09/06/17 07:54 07:54 07:54 WBC 16.8 H Band Neuts % (Manual) Sodium 129 L Creatinine 1.68 H B-Natriuretic Peptide 319.3 H 09/07/17 04:42 WBC Band Neuts % (Manual) 12 H Sodium Creatinine B-Natriuretic Peptide EKG Reviewed by me: Yes (Tele - SR) Phys Exam - Physical Examination Constitutional: NAD HEENT: PERRLA, sclera anicteric, oral pharynx no lesions Neck: no nodes, no JVD, supple, full ROM Respiratory: no wheezing, no rales, no rhonchi, clear to auscultation bilateral S1, S2 Cardiovascular: RRR, no significant murmur, no rub, gallop Gastrointestinal: soft, non-tender, no distention, positive bowel sounds Musculoskeletal: no edema, pulses present Neurological: non-focal, normal sensation, moves all 4 limbs Psychiatric: normal affect, A&O x 3 Skin: no rash, normal turgor, cap refill <2 seconds Dx/Plan (1) Community acquired pneumonia Code(s): J18.9 - PNEUMONIA, UNSPECIFIED ORGANISM Status: Acute Qualifiers: Laterality: left Lung location: lower lobe of lung Qualified Code(s): J18.1 - Lobar pneumonia, unspecified organism Comment: Suspected gm + cocci, continue Rocephin/Levaquin another 24h then de- escalate coverage to single po agent (2) Acute kidney failure Status: Acute Comment: Improved, decrease IVF's 50ml/h, restart Lisinopril in am, serial creatinine (3) Diabetes type 2, uncontrolled Code(s): E11.65 - TYPE 2 DIABETES MELLITUS WITH HYPERGLYCEMIA Status: Chronic Comment: ISS, Resume Metformin, Glipizide and Levemir, ADA (4) Ischemic cardiomyopathy Code(s): I25.5 - ISCHEMIC CARDIOMYOPATHY Status: Chronic Comment: Compensated, continue home regimen (5) Tobacco abuse Code(s): Z72.0 - TOBACCO USE Status: Chronic Comment: Tobacco cessation resources - Plan continue antibiotics, psych social worker, respiratory therapy, out of bed/ambulate , DVT proph w/SCDs Stable overall -: Continue Rocephin/Levaquin IV another 24h then de-escalate -: OOB/ambulate -: Decrease IVF's 50ml/h -: Resume home DM regimen * AM lab: BMP, CBC * Likely home 09/08/17
[2017-09-07] MEDS: Carvedilol 25 MG TAB PO SCH (20:47)
[2017-09-07] MEDS: glipiZIDE 10 MG TAB PO SCH (20:47)
[2017-09-08] MEDS: Levothyroxine Sodium 50 MCG TAB PO SCH (05:23)
[2017-09-08 05:40] LABS: Anion Gap 13 mmol/L (10-20); BUN (Urea Nitrogen) 23 mg/dL (8.4-25.7); Calc. Creatinine Clearance 96 mL/min (70-130); Carbon Dioxide 22 mmol/L (22-29); Chloride 101 mmol/L (98-107); Estimated GFR-MDRD 63; Glucose 185 mg/dL (70-105); Sodium 132 mmol/L (136-145)
[2017-09-08 05:56] LABS: Band 19 % (5-11); Hemoglobin 11.4 g/dL (14.0-18.0); Lymphocytes 10 % (21-51); MDiff Complete? YES; Mean Corpuscular Hemoglobin 28.9 pg (27.0-31.0); Mean Corpuscular Volume 87.5 fL (78.0-98.0); Monocytes 14 % (0-10); Neutrophil 57 % (42-75); Platelet Count 162 thou/uL (130-400); RBC Distribution Width 13.3 % (11.5-14.5); Red Blood Cell (RBC) Count 3.94 mill/uL (4.70-6.10); White Blood Cell (WBC) Count 11.4 thou/uL (4.8-10.8)
[2017-09-08] MEDS: HumaLOG 300 UNITS/3 ML VIAL SC PRN ×3 (08:44→17:33)
[2017-09-08] MEDS: Lisinopril 2.5 MG TAB PO SCH (08:46)
[2017-09-08] MEDS: glipiZIDE 10 MG TAB PO SCH ×2 (08:46→20:54)
[2017-09-08] MEDS: cefTRIAXone\\ROCEPHIN 2 GM, Admixture Fee 1 EACH in Sodium Chloride 0.9% 100 ML IVPB SCH (08:46)
[2017-09-08] MEDS: Simvastatin 20 MG TAB PO SCH (08:47)
[2017-09-08] MEDS: Aspirin 325 mg Enteric Coated Tablet PO SCH (08:47)
[2017-09-08] MEDS: Carvedilol 25 MG TAB PO SCH ×2 (08:47→22:33)
[2017-09-08] MEDS: metFORMIN 850 MG TAB PO SCH ×2 (08:47→17:33)
[2017-09-08] MEDS: Famotidine 20 MG TAB PO SCH ×2 (08:47→20:53)
--- NOTE | 2017-09-08 12:39 | PDOC.PN ---
- Subjective Encounter Start Date: 09/08/17 Encounter Start Time: 11:30 Feels some better. He has been up and walking. Still has some lightheadedness when walking. - Objective Resuscitation Status: Resuscitation Status FULL:Full Resuscitation Vital Signs & Weight: Vital Signs (12 hours) Temp Pulse Resp BP BP BP Pulse Ox 09/08/17 11:25 98.3 F 77 20 106/61 09/08/17 09:57 88 14 95 09/08/17 08:46 79 127/62 09/08/17 07:12 97.3 F L 79 18 127/62 09/08/17 06:49 79 16 94 L 09/08/17 03:36 98.4 F 79 18 134/73 92 L 09/08/17 02:44 94 L Weight Admit Weight 208 lb 14.4 oz Weight 216 lb 11.2 oz I&O: 09/07/17 09/08/17 09/09/17 06:59 06:59 06:59 Intake Total 2756 2510 Output Total 1075 1050 Balance 1681 1460 Result Diagrams: 09/08/17 04:33 09/08/17 04:33 Additional Labs: Accuchecks 09/08/17 09/07/17 09/07/17 05:44 20:35 17:06 POC Glucose 204 H 317 H 306 H Phys Exam - Physical Examination Constitutional: NAD HEENT: PERRLA, oral pharynx no lesions Neck: no JVD, supple Respiratory: no wheezing, no rales, no rhonchi Mild left ronchi. Cardiovascular: RRR, no significant murmur, no rub Gastrointestinal: soft, non-tender, no distention, positive bowel sounds Psychiatric: normal affect Skin: no rash, normal turgor Dx/Plan (1) Community acquired pneumonia Code(s): J18.9 - PNEUMONIA, UNSPECIFIED ORGANISM Status: Acute Qualifiers: Laterality: left Lung location: lower lobe of lung Qualified Code(s): J18.1 - Lobar pneumonia, unspecified organism Comment: Suspected gm + cocci, continue Rocephin/Levaquin another 24h then de- escalate coverage to single po agent (2) Acute kidney failure Status: Acute Comment: Improved, decrease IVF's 50ml/h, restart Lisinopril in am, serial creatinine (3) CAD (coronary artery disease) Code(s): I25.10 - ATHSCL HEART DISEASE OF [place] CORONARY ARTERY W/O ANG PCTRS Status: Chronic (4) Diabetes type 2, uncontrolled Code(s): E11.65 - TYPE 2 DIABETES MELLITUS WITH HYPERGLYCEMIA Status: Chronic Comment: ISS, Resume Metformin, Glipizide and Levemir, ADA (5) Dyslipidemia Code(s): E78.5 - HYPERLIPIDEMIA, UNSPECIFIED Status: Chronic (6) Hypertension Code(s): I10 - ESSENTIAL (PRIMARY) HYPERTENSION Status: Chronic - Plan * Continue IV abx today. Possible conversion to po tomorrow. * Consult Cardiology. EF 20-25% on echo. Same as 2015. Patient is on the fence about possible defibrillator. A little skeptical that they work.
[2017-09-08] MEDS ORDERED: LEVEMIR SQ SCH (17:00)
[2017-09-08] MEDS: Insulin Glargine 26 UNITS in Pre-Filled Syringe SC SCH (17:34)
--- NOTE | 2017-09-09 05:19 | CON ---
DATE OF CONSULTATION: 09/08/2017 CARDIOLOGY CONSULTATION REASON FOR CONSULTATION: Heart failure. HISTORY OF PRESENT ILLNESS: Mr. Cole is a very pleasant 57-year-old white gentleman who comes to [facility] for not feeling well. He was diagnosed with possible atypical pneumonia and was admitted for IV antibiotics. During his admission, an echocardiogram was performed and it was found that his EF was 20%-25% range, so Cardiology is being consulted. He does have a significant history of ische miguel cardiomyopathy back in , he had a diagnosis of this with reduced EF. He had had a heart cat heterization in 2012, which showed multivessel disease. They put him on medications at that time try ing to get his LV better before open heart surgery; however, he never returned for followup. He retu rned in 2014, recatheterization showed severe disease, so he underwent 3-vessel bypass. This was don e by Dr. Acuna later that admission. He never showed up again, we have never seen him in the office since he has been seen in the Heart Failure Clinic. He tells me he has been seeing almost every marcy h; however, he has never followed up with any studio model since. Currently, his breathing is at [facility]. PAST MEDICAL HISTORY: 1. History of an MA in 2014. 2. Coronary artery disease, status post bypass grafting as above. 3. Chronic obstructive pulmonary disease. 4. Tobacco abuse. 5. Type 2 diabetes. 6. Hypertension. 7. Hyperlipidemia. 8. Severely reduced EF of 20%-25%. PAST SURGICAL HISTORY: 1. Coronary artery bypass grafting in 2014 as above. 2. Cardiac catheterization that same day. OUTPATIENT MEDICATIONS: Include: 1. Torsemide. 2. Glipizide. 3. Levemir. 4. Simvastatin 20 mg at bedtime. 5. Metformin. 6. Levothyroxine 50 mcg day. 7. Lisinopril 2.5 mg a day. 8. Carvedilol 12.5 mg b.i.d. 9. Aspirin 325 a day. ALLERGIES: No known drug allergies. SOCIAL HISTORY: Smokes up to a pack of cigarettes a day. No drug or alcohol use. 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 FAMILY HISTORY: Mother with MA at an early age. REVIEW OF SYSTEMS: A 12 point review of systems was done and it is all negative unless stated in the history of present illness. PHYSICAL EXAMINATION: VITAL SIGNS: Temperature 98.1, pulse 83, respiration rate 20, satting 92% on room air, blood pressur e 112/57. GENERAL: Awake, alert, oriented x3, in no distress. HEENT: Normocephalic, atraumatic. NECK: Supple. LUNGS: Clear. CARDIOVASCULAR: S1, S2, no S3, S4. There is a grade 2/6 systolic murmur at right upper sternal bord er. ABDOMEN: Increased girth with positive ascitic wave. EXTREMITIES: Trace edema. SKIN: Warm and dry. LABORATORY DATA AND IMAGING DATA: White count of 16 on admission down to 11, hemoglobin went from 14 to 11, platelet count of 162. Chemistry: Sodium 132, otherwise unremarkable. GFR 63. BNP on admi ssion was 319 and his troponin was in indeterminate range. Albumin of 3.0. Chest x-ray showed atypical findings consistent for atypical pneumonia or asymmetric edema. Echocardiogram done yesterday showed an EF of 20%-25% with severe MR. ASSESSMENT AND PLAN: 1. Pneumonia, community acquired. 2. Chronic systolic heart failure. 3. Ischemic cardiomyopathy. 4. Severe mitral regurgitation. PLAN: 1. He has a class 1 indication for an AICD. He has had a reduced EF since 2015. He really has not had a follow up with us and has not had LV function reassessed for many years now. He will need an A ICD placed; however, this may not be the best time given his atypical pneumonia. We will hopefully w ait for the money to be clear, probably 2 weeks after consider AICD placement. Otherwise, would cont inue IV antibiotics for now and bring him back as an outpatient for placement of an AICD. 2. Severe left ventricular dysfunction. Continue beta marine, DESTIN inhibitor. Blood pressure is rj rderline low to add any Aldactone or switch his DESTIN inhibitor to Entresto. 3. Pneumonia per primary team, on antibiotics. Thank you for letting us to participate in the care of your patient. We will follow.
[2017-09-09] MEDS: Levothyroxine Sodium 50 MCG TAB PO SCH (05:42)
[2017-09-09] MEDS: metFORMIN 850 MG TAB PO SCH ×2 (10:09→17:22)
[2017-09-09] MEDS: Aspirin 325 mg Enteric Coated Tablet PO SCH (10:09)
[2017-09-09] MEDS: Carvedilol 25 MG TAB PO SCH (10:09)
[2017-09-09] MEDS: cefTRIAXone\\ROCEPHIN 2 GM, Admixture Fee 1 EACH in Sodium Chloride 0.9% 100 ML IVPB SCH (10:10)
[2017-09-09] MEDS: Famotidine 20 MG TAB PO SCH (10:11)
[2017-09-09] MEDS: glipiZIDE 10 MG TAB PO SCH (10:11)
[2017-09-09] MEDS: Lisinopril 2.5 MG TAB PO SCH (10:11)
[2017-09-09] MEDS: Simvastatin 20 MG TAB PO SCH (10:12)
[2017-09-09] MEDS: HumaLOG 300 UNITS/3 ML VIAL SC PRN (13:10)
[2017-09-09 17:13] VITALS: BP 107/62; TEMP 97.5
[2017-09-09] MEDS: Insulin Glargine 26 UNITS in Pre-Filled Syringe SC SCH (17:21)
== END 2017-09-09 19:10 | disposition home or self-care (01) | DRG 194 ==
LOC: ERS 07:34 → 2NO 11:19
PROVIDERS: ADMIT Family Medicine; ATTEND Family Medicine
DX: J18.1 Lobar pneumonia, unspecified organism (principal); N17.9 Acute kidney failure, unspecified; E87.1 Hypo-osmolality and hyponatremia; I50.22 Chronic systolic (congestive) heart failure; I25.5 Ischemic cardiomyopathy; F17.210 Nicotine dependence, cigarettes, uncomplicated; J44.9 Chronic obstructive pulmonary disease, unspecified; I34.0 Nonrheumatic mitral (valve) insufficiency; I49.3 Ventricular premature depolarization; I25.10 Atherosclerotic heart disease of native coronary artery without angina pectoris; E78.5 Hyperlipidemia, unspecified; E11.65 Type 2 diabetes mellitus with hyperglycemia; I11.0 Hypertensive heart disease with heart failure; I25.2 Old myocardial infarction; Z79.899 Other long term (current) drug therapy; Z79.82 Long term (current) use of aspirin; Z56.0 Unemployment, unspecified; Z82.49 Family history of ischemic heart disease and other diseases of the circulatory system; Z95.1 Presence of aortocoronary bypass graft; Z79.4 Long term (current) use of insulin; Z83.3 Family history of diabetes mellitus; Z80.0 Family history of malignant neoplasm of digestive organs
CPT/HCPCS: 36415; 36416; 71046; 80048; 80053; 82550; 82553; 83880; 84484; 85007; 85025; 85027; 87040; 93005; 93306; 94640; 94760; 96365; 96367; A4216; J0456; J0696; J1815; J1956; J7050; J7620

== ENCOUNTER 2017-09-10 10:14 | Inpatient (IN) | payer OTHER ==
[2017-09-10 13:00] LABS: #Eosinphils 0.3 thou/uL (0.0-0.7); #Lymphocytes 1.5 thou/uL (1.20-3.40); #Monocytes 1.2 thou/uL (0.11-0.59); #Neutrophils 6.4 thou/uL (1.40-6.50); %Basophils 0.4 % (0.0-1.0); %Eosinophils 3.1 % (0.0-10.0); %Lymphocytes 16.3 % (21.0-51.0); %Monocytes 12.5 % (0.0-10.0); %Neutrophils 67.7 % (42.0-75.0); Hemoglobin 12.6 g/dL (14.0-18.0); Mean Corpuscular HGB CONC 34.2 g/dL (32.0-36.0); Mean Corpuscular Hemoglobin 29.8 pg (27.0-31.0); Mean Corpuscular Volume 87.2 fL (78.0-98.0); Mean Platelet Volume 7.6 fL (7.4-10.4); Platelet Count 270 thou/uL (130-400); RBC Distribution Width 13.4 % (11.5-14.5); Red Blood Cell (RBC) Count 4.22 mill/uL (4.70-6.10); White Blood Cell (WBC) Count 9.4 thou/uL (4.8-10.8)
[2017-09-10 13:23] LABS: ALT (SGPT) 29 U/L (8-55); AST (SGOT) 25 U/L (5-34); Albumin 3.2 g/dL (3.5-5.0); Alkaline Phosphatase 75 U/L (40-150); Anion Gap 12 mmol/L (10-20); BUN (Urea Nitrogen) 25 mg/dL (8.4-25.7); Bilirubin, Total 0.4 mg/dL (0.2-1.2); Calc. Creatinine Clearance 0 mL/min (70-130); Calcium 8.8 mg/dL (7.8-10.44); Carbon Dioxide 24 mmol/L (22-29); Chloride 103 mmol/L (98-107); Estimated GFR-MDRD 73; Globulin 3.5 g/dL (2.4-3.5); Glucose 186 mg/dL (70-105); Potassium 3.7 mmol/L (3.5-5.1); Protein, Total 6.7 g/dL (6.0-8.3); Sodium 135 mmol/L (136-145)
--- NOTE | 2017-09-10 13:24 | RAD ---
PA AND LATERAL CHEST: Indication: History of pneumonia. Coughing up blood. FINDINGS: The airspace opacity within the left upper lobe has increased in prominence. Right lung is clear. Car diomegaly with midline sternotomy changes are stable. Spondylosis is similar appearing. IMPRESSION: Worsening airspace opacity of the left upper lobe is suspicious for worsening pneumonia. Radiographic follow up to resolution is recommended. POS: [facility]
[2017-09-10] MEDS ORDERED: Piperacillin/Tazobactam 4.5 GM in Sodium Chloride 0.9% 100 ML IVPB SCH (15:00)
[2017-09-10 16:23] VITALS: BMI 31.7
[2017-09-10] MEDS ORDERED: Acetaminophen 325 MG TAB PO PRN (16:36)
[2017-09-10] MEDS: Docusate 100 MG CAP PO SCH (21:55)
[2017-09-10] MEDS: Piperacillin/Tazobactam 3.375 GM in Sodium Chloride 0.9% 100 ML IVPB SCH (21:55)
--- NOTE | 2017-09-10 22:03 | PDOC.PN ---
- Subjective Encounter Start Date: 09/10/17 Encounter Start Time: 15:45 This patient was discharged yesterday. he has been diagnosed with pneumonia and cardiomyopathy. The recommendation was for a Life Vest for two weeks so that the pneumonia could be adequately treated and then have an implanted defibrillator. He declined the Life Vest. He was discharged with a prescription for Doxycycline to avoid the potential arrythmogenic possibilities with quinolones. He did not get the prescription filled until later today. He felt well, but had a couple of episodes of sputum production with pink tinging and one with streaked blood. He presented to the ED. His CXR was slightly worse than the admission CXR from the initial admission. Denies any fever or chills. No SOB. For PMH, FH, Social Hx, see the previous admission note. - Objective Resuscitation Status: Resuscitation Status FULL:Full Resuscitation Vital Signs & Weight: Vital Signs (12 hours) Temp Pulse Resp BP Pulse Ox 09/10/17 20:00 97.2 F L 65 14 111/57 L 98 09/10/17 19:30 97.2 F L 65 14 09/10/17 16:30 97.5 F L 57 L 17 99 09/10/17 16:10 97.5 F L 57 L 17 115/57 L 99 Weight Weight 215 lb Result Diagrams: 09/10/17 12:48 09/10/17 12:48 Phys Exam - Physical Examination Constitutional: NAD Neck: no JVD, supple Respiratory: no wheezing, no rales, no rhonchi, clear to auscultation bilateral Cardiovascular: RRR, no significant murmur Gastrointestinal: soft, non-tender Musculoskeletal: no edema Psychiatric: normal affect Dx/Plan (1) Pneumonia Code(s): J18.9 - PNEUMONIA, UNSPECIFIED ORGANISM Status: Acute (2) Diabetes type 2, uncontrolled Code(s): E11.65 - TYPE 2 DIABETES MELLITUS WITH HYPERGLYCEMIA Status: Chronic Comment: ISS, Resume Metformin, Glipizide and Levemir, ADA (3) Dyslipidemia Code(s): E78.5 - HYPERLIPIDEMIA, UNSPECIFIED Status: Chronic (4) Hypertension Code(s): I10 - ESSENTIAL (PRIMARY) HYPERTENSION Status: Chronic (5) Ischemic cardiomyopathy Code(s): I25.5 - ISCHEMIC CARDIOMYOPATHY Status: Chronic Comment: Compensated, continue home regimen (6) Tobacco abuse Code(s): Z72.0 - TOBACCO USE Status: Chronic Comment: Tobacco cessation resources - Plan * Resume IV abx. Given the cardiomyopathy and the patient's difficulty in generally understanding the situation, I will resume the hospital care. .
[2017-09-11] MEDS: Piperacillin/Tazobactam 3.375 GM in Sodium Chloride 0.9% 100 ML IVPB SCH ×4 (06:01→20:36)
[2017-09-11] MEDS: Docusate 100 MG CAP PO SCH ×2 (08:04→20:36)
--- NOTE | 2017-09-11 11:13 | CT ---
CT THORAX WITHOUT IV CONTRAST: INDICATIONS: History of hemoptysis and pneumonia. COMPARISON: 09/10/2017 FINDINGS: There is dense air space consolidation in the left upper lobe, consistent with pneumonia. There are patchy areas of air space opacity in the lingula, also suspicious for pneumonia. There is a moderate right small left pleural effusion. The right lung is clear. There are a few shotty appearing lymph nodes within the mediastinum. There are coronary artery and thoracic aortic calcifications. The vi sualized upper abdomen reveals no definite acute abnormality. IMPRESSION: Left upper lobe and lingular pneumonia with moderate left pleural effusion. There is a small right p leural effusion. Recommend followup to resolution. POS: [facility]
[2017-09-11] MEDS ORDERED: Dextrose 5% in Water 1,000 ML IV PRN (11:18)
[2017-09-11] MEDS ORDERED: Dextrose 50% Abboject 50 ML SYRINGE IVP PRN (11:18)
[2017-09-11] MEDS ORDERED: HumaLOG 300 UNITS/3 ML VIAL SC PRN (11:18)
[2017-09-11] MEDS: HumaLOG 300 UNITS/3 ML VIAL SC PRN ×2 (12:16→16:48)
--- NOTE | 2017-09-11 15:23 | PDOC.PN ---
- Subjective Encounter Start Date: 09/11/17 Encounter Start Time: 09:00 Continues to have some modest hemoptysis. Feels ok. No significant SOB. - Objective Resuscitation Status: Resuscitation Status FULL:Full Resuscitation Vital Signs & Weight: Vital Signs (12 hours) Temp Pulse Resp BP BP Pulse Ox 09/11/17 12:09 97.6 F 64 16 131/67 98 09/11/17 08:37 97.7 F 61 17 117/55 L 100 09/11/17 08:30 97.7 F 61 17 100 09/11/17 04:00 97.4 F L 68 16 129/62 98 Weight Weight 215 lb I&O: 09/10/17 09/11/17 09/12/17 06:59 06:59 06:59 Intake Total 440 Balance 440 Result Diagrams: 09/10/17 12:48 09/10/17 12:48 Additional Labs: Accuchecks 09/11/17 10:31 POC Glucose 336 H Phys Exam - Physical Examination Constitutional: NAD HEENT: oral pharynx no lesions Neck: no JVD, supple Respiratory: no wheezing, no rales, no rhonchi, clear to auscultation bilateral Cardiovascular: RRR, no significant murmur Gastrointestinal: soft Psychiatric: normal affect, A&O x 3 Skin: normal turgor Dx/Plan (1) Pneumonia Code(s): J18.9 - PNEUMONIA, UNSPECIFIED ORGANISM Status: Acute Comment: Persistent pneumonia. Patient was discharged and promptly returned because of some modest hemoptysis. Given his cardiomyopathy and blood thinners, he was kept in the hospital. Continue Zosyn. Avoiding levaquin because of the risk of arrhythmia. CT today did not reveal anything other than pneumonia. Hope to discharge tomorrow. (2) Diabetes type 2, uncontrolled Code(s): E11.65 - TYPE 2 DIABETES MELLITUS WITH HYPERGLYCEMIA Status: Chronic Comment: ISS, Resume Metformin, Glipizide and Levemir, ADA (3) Dyslipidemia Code(s): E78.5 - HYPERLIPIDEMIA, UNSPECIFIED Status: Chronic Comment: Continue home meds. (4) Hypertension Code(s): I10 - ESSENTIAL (PRIMARY) HYPERTENSION Status: Chronic Comment: Continue home meds. (5) Ischemic cardiomyopathy Code(s): I25.5 - ISCHEMIC CARDIOMYOPATHY Status: Chronic Comment: Compensated, continue home regimen (6) Tobacco abuse Code(s): Z72.0 - TOBACCO USE Status: Chronic Comment: Tobacco cessation resources - Plan * Above.
[2017-09-11] MEDS: glipiZIDE 5 MG TAB PO SCH (16:48)
[2017-09-11] MEDS ORDERED: metFORMIN 850 MG TAB PO SCH (17:00)
[2017-09-11] MEDS ORDERED: LEVEMIR SQ SCH (17:00)
[2017-09-11] MEDS: Carvedilol 6.25 MG TAB PO SCH (20:36)
[2017-09-11] MEDS ORDERED: Non-Formulary Item 1 EACH (Carvedilol [Carvedilol] 12.5 MG) PO SCH (21:00)
[2017-09-11] MEDS ORDERED: glipiZIDE 5 MG TAB PO SCH (21:00)
[2017-09-11] MEDS ORDERED: Insulin Glargine 26 UNITS in Pre-Filled Syringe 1 EACH SC SCH (21:00)
[2017-09-12] MEDS: Piperacillin/Tazobactam 3.375 GM in Sodium Chloride 0.9% 100 ML IVPB SCH ×2 (06:02→09:29)
[2017-09-12] MEDS: Docusate 100 MG CAP PO SCH (08:00)
[2017-09-12] MEDS ORDERED: metFORMIN 850 MG TAB PO SCH (08:00)
[2017-09-12] MEDS: glipiZIDE 5 MG TAB PO SCH (08:00)
[2017-09-12] MEDS: Carvedilol 6.25 MG TAB PO SCH (08:00)
[2017-09-12] MEDS: HumaLOG 300 UNITS/3 ML VIAL SC PRN ×2 (08:01→11:40)
[2017-09-12] MEDS ORDERED: Levothyroxine Sodium 50 MCG TAB PO SCH (09:00)
[2017-09-12] MEDS ORDERED: Aspirin 81 mg Enteric Coated Tablet PO SCH (09:00)
[2017-09-12] MEDS ORDERED: Lisinopril 2.5 MG TAB PO SCH ×2 (09:00)
[2017-09-12] MEDS ORDERED: Torsemide 20 MG TAB PO SCH (09:00)
[2017-09-12] MEDS ORDERED: Simvastatin 20 MG TAB PO SCH (09:00)
[2017-09-12 12:35] VITALS: BP 101/51; TEMP 97.5
== END 2017-09-12 15:10 | disposition home or self-care (01) | DRG 195 ==
LOC: ERS 10:14 → 2NO 15:48
PROVIDERS: ADMIT Internal Medicine; ATTEND Internal Medicine
DX: J18.9 Pneumonia, unspecified organism (principal); E11.65 Type 2 diabetes mellitus with hyperglycemia; E78.5 Hyperlipidemia, unspecified; I10 Essential (primary) hypertension; I25.5 Ischemic cardiomyopathy; Z72.0 Tobacco use
CPT/HCPCS: 36415; 36416; 71046; 71250; 80053; 83605; 85025; 87040; 96365; 96366; 96367; 99406; J1956; J2543; J7050

== ENCOUNTER 2017-09-28 09:51 | Outpatient (CLI) | payer OTHER ==
--- NOTE | 2017-09-28 09:40 | PRG ---
DATE OF SERVICE: 09/28/2017 HISTORY: Mr. Yifan Cole is a very pleasant 57-year-old gentleman, who presents to the Wound C enter for evaluation of an ulceration of the plantar surface of the right hallux. Since the patient was last seen in the Wound Center, Mr. Cole was admitted to [facility] for c ommunity-acquired pneumonia of the left lower lobe. Mr. Cole was discharged from the hospital on 0 09/09/2017. The patient, however, was readmitted after presenting to the emergency department with he moptysis, and his chest x-ray was noted to be slightly worse than the admission chest x-ray from his initial admission. The patient reports that his wound has healed completely. He states that he is n ot performing any dressing changes, but is keeping his wound covered with a sock. The patient has no other complaints today. He denies any fever or chills. PHYSICAL EXAMINATION: VITAL SIGNS: Temperature 97.6, pulse 65, respirations 20, blood pressure 101/62. Accu-Chek 283. EXTREMITIES: The ulceration of the plantar surface of the right foot, over the right hallux, has hea led completely. Callus associated with the ulceration was debrided with an excisional partial-thickn ess debridement with the use of scissors. No erythema of the skin surrounding the wound is present. No maceration of the skin of the periwound is noted. A dorsalis pedis pulse is palpable on the righ t. No significant edema of the right foot is present on exam today. ASSESSMENT AND PLAN: 1. Ulceration of plantar surface of the right hallux. As stated above, the wound has healed complet vladimir. Mr. Cole will be discharged from clinic today with followup on a p.r.n. basis. The patient s tates that he is utilizing shoes with inserts for more optimal offloading of the plantar surface of t he right hallux and the plantar surface of the left hallux. 2. Diabetes mellitus. The patient's Accu-Chek in clinic today is 283. The patient has been reminde d that for optimal wound healing, his blood glucoses should remain below 150. 3. Ischemic cardiomyopathy. 4. Coronary artery disease. 5. Chronic obstructive pulmonary disease. 6. Hypertension. 7. Anemia.
== END 2017-09-28 09:52 | disposition home or self-care (01) ==
LOC: WCC 09:51
PROVIDERS: ATTEND Family Medicine
DX: E11.621 Type 2 diabetes mellitus with foot ulcer (principal); L97.419 Non-pressure chronic ulcer of right heel and midfoot with unspecified severity; I11.9 Hypertensive heart disease without heart failure; I43 Cardiomyopathy in diseases classified elsewhere; I25.10 Atherosclerotic heart disease of native coronary artery without angina pectoris; J44.9 Chronic obstructive pulmonary disease, unspecified; D64.9 Anemia, unspecified
CPT/HCPCS: 36416; 97597

== ENCOUNTER 2018-08-23 14:47 | Outpatient (CLI) | payer OTHER ==
--- NOTE | 2018-08-23 09:40 | PRG ---
DATE OF SERVICE: 08/23/2018 SUBJECTIVE ISTORY: Mr. Yifan Cole is a very pleasant 58-year-old gentleman, who presents to the Wound Center for evaluation of a lesion of the plantar surface of the right hallux. Since the patient was last seen in the Wound Center, Mr. Cole was admitted to [facility] for pneumonia. Also, since the patient's last visit, Mr. Cole has undergone defibrillator implantation. The patient has no other complaints today. He denies any fever or chills. PHYSICAL EXAMINATION: VITAL SIGNS: Temperature 97.5, pulse 57, respirations 18, blood pressure 150/70. Accu-Chek 318. EXTREMITIES: No open wound of the plantar surface of the right foot over the right hallux is present. ASSESSMENT AND PLAN: 1. Lesion of plantar surface of the right hallux. As stated above, no open wound of the plantar surface of the right hallux is present, and the patient has been reassured. Mr. Cole states that previously openings in the skin over the plantar surface of the right hallux were present. Mr. Cole will be discharged from clinic today with followup on a p.r.n. basis. 2. Diabetes mellitus. The patient's Accu-Chek in clinic today is 318. 3. Ischemic cardiomyopathy. As stated above, the patient has recently undergone defibrillator implantation. 4. Coronary artery disease. 5. Chronic obstructive pulmonary disease. 6. Hypertension. 7. Anemia. Job ID: [id number]
== END 2018-08-23 14:48 | disposition home or self-care (01) ==
LOC: WCC 14:47
PROVIDERS: ATTEND Family Medicine
DX: L98.9 Disorder of the skin and subcutaneous tissue, unspecified (principal); E11.9 Type 2 diabetes mellitus without complications; J44.9 Chronic obstructive pulmonary disease, unspecified; D64.9 Anemia, unspecified; I25.10 Atherosclerotic heart disease of native coronary artery without angina pectoris; I25.5 Ischemic cardiomyopathy
CPT/HCPCS: 36416

== ENCOUNTER 2019-05-02 07:59 | Inpatient (IN) | payer OTHER ==
[2019-05-02 08:54] LABS: #Basophils 0.1 thou/uL (0.0-0.2); #Eosinphils 0.4 thou/uL (0.0-0.7); #Lymphocytes 2.6 thou/uL (1.20-3.40); #Monocytes 1.1 thou/uL (0.11-0.59); #Neutrophils 7.3 thou/uL (1.40-6.50); %Basophils 0.7 % (0.0-1.0); %Eosinophils 3.6 % (0.0-10.0); %Lymphocytes 22.6 % (21.0-51.0); %Monocytes 9.7 % (0.0-10.0); %Neutrophils 63.3 % (42.0-75.0); Hemoglobin 14.7 g/dL (14.0-18.0); Mean Corpuscular HGB CONC 34.1 g/dL (32.0-36.0); Mean Corpuscular Hemoglobin 30.4 pg (27.0-31.0); Mean Corpuscular Volume 89.2 fL (78.0-98.0); Mean Platelet Volume 7.5 fL (7.4-10.4); Platelet Count 224 thou/uL (130-400); RBC Distribution Width 12.8 % (11.5-14.5); Red Blood Cell (RBC) Count 4.85 mill/uL (4.70-6.10); White Blood Cell (WBC) Count 11.5 thou/uL (4.8-10.8)
[2019-05-02 09:11] LABS: ALT (SGPT) 16 U/L (8-55); AST (SGOT) 11 U/L (5-34); Alkaline Phosphatase 96 U/L (40-110); Anion Gap 13 mmol/L (10-20); BUN (Urea Nitrogen) 34 mg/dL (8.4-25.7); Bilirubin, Total 0.7 mg/dL (0.2-1.2); Calc. Creatinine Clearance 0 mL/min (70-130); Carbon Dioxide 26 mmol/L (22-29); Chloride 101 mmol/L (98-107); Estimated GFR-MDRD 38; Globulin 3.1 g/dL (2.4-3.5); Glucose 358 mg/dL (70-105); Lipase 53 U/L (8-78); Potassium 4.8 mmol/L (3.5-5.1); Protein, Total 7.1 g/dL (6.0-8.3); Sodium 135 mmol/L (136-145)
[2019-05-02 10:49] LABS: Magnesium 1.9 mg/dL (1.6-2.6); Phosphorus 3.2 mg/dL (2.3-4.7)
[2019-05-02] MEDS ORDERED: Calcium Carbonate 500 MG ChewTAB PO PRN (10:53)
[2019-05-02] MEDS ORDERED: Acetaminophen 325 MG TAB PO PRN (10:53)
[2019-05-02] MEDS ORDERED: Insulin Regular 300 UNITS/3 ML VIAL SC PRN (10:57)
[2019-05-02] MEDS ORDERED: Dextrose 5% in Water 1,000 ML IV PRN (10:57)
[2019-05-02] MEDS ORDERED: Dextrose 50% Abboject 50 ML SYRINGE SLOW IVP PRN (10:57)
[2019-05-02] MEDS ORDERED: Amiodarone 450 MG in Dextrose 5% in Water 250 ML IVPB SCH (11:00)
[2019-05-02] MEDS ORDERED: Magnesium 2 GM/50 ML BAG (IN WATER) ONE (11:25)
--- NOTE | 2019-05-02 11:41 | RAD ---
Exam: Chest one view abdomen 2 views: HISTORY: Abdominal pain, diarrhea COMPARISON: Chest 2 views, 09/10/2017 FINDINGS: Postop midline sternotomy and left ICD. No acute intrathoracic disease. Unremarkable bowel gas pattern. Evidence for small bilateral renal calculi. No evidence for obstructi ng calculus. Gas and fecal material in the colon. No bowel obstruction, free air, or other acute process. IMPRESSION: Probable small bilateral renal calculi. No other acute process.
[2019-05-02] MEDS ORDERED: Carvedilol 6.25 MG TAB PO SCH (11:45)
--- NOTE | 2019-05-02 11:49 | HP ---
PRIMARY CARE: [facility]. PRIMARY WOOL BATTING WORKER: Dr. Jay. CHIEF COMPLAINT: Diarrhea of 3-week duration. HISTORY OF PRESENT ILLNESS: The patient is a 59-year-old male with cardiomyopathy, hypertension, and diabetes mellitus type 2 with ongoing tobacco abuse, presented to the emergency room with above complaints. Over the last 3 weeks, the patient has intermittent diarrhea up to 3 bowel movements a day. The bowel movements are usually watery. At times, he has no bowel movement for 3 days. He was told that the diarrhea is probably secondary to metformin. He presented to the emergency room for second opinion. He denies any nausea, vomiting, or loss of appetite. He felt he complains of abdominal fullness, however, denies any pain. He denies EGD or colonoscopy in the past. No recent changes in his diet. In the emergency room, his telemetry monitoring was consistent with ventricular arrhythmia/torsade. His workup was also consistent with acute kidney injury with creatinine of 1.85. PAST MEDICAL HISTORY: 1. Chronic systolic heart failure, ejection fraction 20% to 25% range, status post AICD. 2. Diabetes mellitus type 2. 3. Hypertension. 4. Chronic obstructive pulmonary disease. 5. Ongoing tobacco abuse. 6. Hyperlipidemia. 7. Coronary artery disease, status post NE. PAST SURGICAL HISTORY: 1. Coronary artery bypass grafting in 2015. 2. Cardiac catheterization. 3. AICD placement. ALLERGIES: NO KNOWN DRUG ALLERGIES. MEDICATIONS: Current medications to be verified. The patient is unable to recall all of his home medications. FAMILY HISTORY: Father with colon cancer. Mother with NE. Diabetes runs in his family. SOCIAL HISTORY: The patient continues to smoke on and off since the age of 19. He denies any alcohol or drug abuse. REVIEW OF SYSTEMS: All other review of systems was reviewed and were found negative. PHYSICAL EXAMINATION: VITAL SIGNS: Temperature 97.5, respirations of 16, pulse rate of 64 with a blood pressure of 122/56, O2 saturation of 97% on room air. GENERAL: A 59-year-old male, in no apparent distress. HEENT: Head, atraumatic and normocephalic. Sclerae are anicteric. Moist mucous membranes. No oral lesion. NECK: Supple. No JVD appreciated. No carotid bruit. LUNGS: Clear to auscultation bilaterally. No wheezing, rales, or rhonchi. HEART: S1 and S2 present. Regular rate and rhythm. No rubs or gallops. AICD noted. ABDOMEN: Soft, slightly distended. No rebound or guarding. No costovertebral angle tenderness. EXTREMITIES: Trace edema in bilateral lower extremities. SKIN: Warm and dry. LYMPH NODES: No palpable lymph nodes in the neck. PERIPHERAL VASCULAR: Radial pulses palpable bilaterally. MUSCULOSKELETAL: No joint swelling or tenderness. LABORATORY FINDINGS: CBC showed WBC of 11.5 with hemoglobin 14.7, hematocrit 43.2, platelet 224. Chemistry showed sodium 135, potassium 4.8, chloride 101, bicarbonate 26, BUN 34, creatinine 1.85, glucose of 358. LFTs in normal range. Lipase was normal. Telemetry monitoring by my review as discussed above. IMPRESSION: 1. Diarrhea of 3-week duration of unclear etiology, probably metformin induced. Rule out infectious etiology. 2. Acute kidney injury on chronic kidney disease stage 2, probably secondary to diuretics/diarrhea. 3. Ventricular arrhythmias/torsade. 4. Hyponatremia. 5. Diabetes mellitus type 2. 6. Chronic systolic heart failure, ejection fraction 20% to 25% secondary to ischemic cardiomyopathy. 7. Hypertension. 8. Hyperlipidemia. 9. Coronary artery disease, status post myocardial infarction and coronary artery bypass graft. 10. Tobacco dependence, ongoing. PLAN: The patient will be monitored on the telemetry unit. He will be started on amiodarone drip. I discussed with Cardiology on-call. We will start him on gentle IV hydration. Hold diuretics. DESTIN inhibitor for now. We will resume carvedilol at 12.5 mg twice a day. Home medications will be verified from [facility]. Insulin sliding scale. We will check KUB. Echocardiogram will be obtained. His last echocardiogram was in August of 2017 that showed ejection fraction of 20% to 25%. We will recheck labs in a.m. Cardiac Rehab consult. The patient understands the above plan of care. Job ID: [id number]
[2019-05-02] MEDS ORDERED: Insulin Glargine 15 UNITS in Pre-Filled Syringe 1 EACH SC SCH ×2 (13:00→21:00)
[2019-05-02] MEDS ORDERED: Amiodarone 150 MG/3 ML VIAL ONE (14:19)
[2019-05-02] MEDS ORDERED: Amiodarone 150 MG in Dextrose 5% in Water 100 ML IVPB SCH (14:45)
[2019-05-02 16:53] VITALS: BMI 31.1
[2019-05-02] MEDS: Carvedilol 6.25 MG TAB PO SCH (17:07)
[2019-05-02] MEDS: Insulin Regular 300 UNITS/3 ML VIAL SC PRN (17:08)
[2019-05-02] MEDS: Sodium Chloride 0.9% 1,000 ML IV SCH ×2 (17:21→21:28)
[2019-05-02] MEDS: Famotidine 20 MG TAB PO SCH (21:32)
--- NOTE | 2019-05-03 01:06 | CON ---
DATE OF CONSULTATION: HISTORY OF PRESENT ILLNESS: iYfan Cole is a 59-year-old white male patient who has followed with Dr. Jay in the past. He had a heart catheterization in 2012, which showed multi-vessel disease. He was placed on medications, hopefully to have his left ventricular function improve and then undergo CABG. However, he never returned for followup. He was then seen again in [address] Jay and underwent cardiac catheterization, which revealed ejection fraction of 15% with anterior and apical akinesis and diffuse global hypokinesis. He had 70 followed by 80% proximal LAD with diffuse LAD disease. There was a 90% first obtuse marginal and total occlusion of the mid circumflex of the distal circumflex filling retrograde from the left. The right coronary artery had a long 70% to 80% mid to distal stenosis. He ultimately underwent CABG x3 by Dr. Acuna on May 02, 2014. CUMMINGS to the LAD, vein graft to the distal right coronary artery and vein graft to the obtuse marginal. He had atrial fibrillation after bypass surgery and was placed on amiodarone. He did not return for followup. He was again hospitalized in August 2017 for atypical pneumonia. He had an ejection fraction of 20% to 25% on his echo. He ultimately underwent placement of a defibrillator [facility] I do not have any information on the type that was placed. He again did not return for followup with Dr. Jay. He now is admitted with intermittent diarrhea for 3 weeks. In the emergency room, he had an arrhythmia on the monitor and cardiology consultation is requested. He denies any chest discomfort or palpitations. He denies any significant shortness of breath. PAST MEDICAL HISTORY: Ischemic cardiomyopathy with ejection fraction of 20% to 25%, diabetes, hypertension, COPD, hyperlipidemia, coronary artery disease status post MT. PAST SURGICAL HISTORY: CABG x3, ICD placement. MEDICATIONS: 1. Aspirin 81 daily. 2. Carvedilol 25 mg b.i.d. 3. Glucotrol 5 mg before meals and at bedtime. 4. Levemir FlexPen. 5. Levothyroxine 50 mcg daily. 6. Lisinopril 2.5 daily. 7. Simvastatin 20 at bedtime. 8. Torsemide 20 mg b.i.d. ALLERGIES: NONE. SOCIAL HISTORY: He smokes 1 pack per day. He does not drink. FAMILY HISTORY: Mother had myocardial infarction. REVIEW OF SYSTEMS: A 10-point review of systems is otherwise unremarkable. PHYSICAL EXAMINATION: VITAL SIGNS: Blood pressure 148/65, pulse of 61. HEENT: PERRL. NECK: Supple. CHEST: Clear. CARDIAC: S1 and S2 normal without any S3, S4, or murmurs. ABDOMEN: Normal bowel sounds without tenderness. The abdomen is obese. EXTREMITIES: Revealed no clubbing, cyanosis, or edema. NEUROLOGIC: Grossly intact. SKIN: Warm and dry. LABORATORY DATA: I do not see an EKG on the chart. The rhythm strip was felt to show Torsade de pointes; however this is artifact with QRS marching through. I do not see a chest x-ray. White count [id number], hemoglobin 14.7, hematocrit 43.2, platelets 224,000. Sodium 135, potassium 4.8, chloride 101, carbon dioxide 26, BUN 34, creatinine 1.85. IMPRESSION: 1. Artifact on the monitor with QRS marching through the questionable area on the rhythm strip. 2. Ischemic cardiomyopathy with last ejection fraction of 20% to 25%. 3. Status post coronary artery bypass graft x3. 4. History of implantable cardioverter-defibrillator placement. 5. Hypertension. 6. Hyperlipidemia. 7. Diabetes. 8. Smoker. 9. Positive family history. 10. Diarrhea. PLAN: EKG will be requested as well as chest x-ray and fasting lipid profile. His defibrillator will be interrogated and I doubt that he has had any significant arrhythmia at the time of this artifact. Amiodarone will be discontinued. An echocardiogram will be performed. Job ID: [id number] MTDD
[2019-05-03 04:48] LABS: #Basophils 0.1 thou/uL (0.0-0.2); #Eosinphils 0.5 thou/uL (0.0-0.7); #Monocytes 1.1 thou/uL (0.11-0.59); #Neutrophils 6.1 thou/uL (1.40-6.50); %Lymphocytes 27.3 % (21.0-51.0); %Monocytes 10.4 % (0.0-10.0); %Neutrophils 56.4 % (42.0-75.0); Hemoglobin 13.5 g/dL (14.0-18.0); Mean Corpuscular HGB CONC 33.8 g/dL (32.0-36.0); Mean Corpuscular Volume 88.8 fL (78.0-98.0); Mean Platelet Volume 7.9 fL (7.4-10.4); Platelet Count 228 thou/uL (130-400); RBC Distribution Width 12.7 % (11.5-14.5); Red Blood Cell (RBC) Count 4.51 mill/uL (4.70-6.10); White Blood Cell (WBC) Count 10.8 thou/uL (4.8-10.8)
[2019-05-03 05:12] LABS: ALT (SGPT) 13 U/L (8-55); AST (SGOT) 11 U/L (5-34); Albumin 3.6 g/dL (3.5-5.0); Alkaline Phosphatase 95 U/L (40-110); Anion Gap 11 mmol/L (10-20); BUN (Urea Nitrogen) 21 mg/dL (8.4-25.7); Bilirubin, Total 0.7 mg/dL (0.2-1.2); Calc. Creatinine Clearance 82 mL/min (70-130); Calcium 8.5 mg/dL (7.8-10.44); Carbon Dioxide 21 mmol/L (22-29); Cardiac Risk 6.2 (Less than 4.5); Chloride 104 mmol/L (98-107); Cholesterol 197 mg/dl (< 200 Desired); Estimated GFR-MDRD 54; Globulin 2.8 g/dL (2.4-3.5); Glucose 334 mg/dL (70-105); HDL Cholesterol 32 mg/dL (>60 Neg Risk); Magnesium 2.1 mg/dL (1.6-2.6); Potassium 4.5 mmol/L (3.5-5.1); Protein, Total 6.4 g/dL (6.0-8.3); Sodium 131 mmol/L (136-145); Triglycerides 439 mg/dL (Less than 150)
[2019-05-03] MEDS: Sodium Chloride 0.9% 1,000 ML IV SCH (05:42)
--- NOTE | 2019-05-03 08:04 | RAD ---
CHEST 1 VIEW: Date: 05/03/2019 INDICATION: History of cardiomyopathy. COMPARISON: Prior exam dated 04/25/2014. FINDINGS: There is moderate cardiomegaly. There are midline sternotomy changes. There is a single lead AICD ove rlying the left chest wall. No pleural effusion or pneumothorax is evident. No acute osseous abnormal ity is evident. IMPRESSION: 1. Stable mild cardiomegaly without evidence of cardiac decompensation. 2. Interval placement of a left-sided single lead AICD. No pneumothorax. POS: [facility]
[2019-05-03] MEDS: Carvedilol 6.25 MG TAB PO SCH (08:22)
[2019-05-03] MEDS: Insulin Regular 300 UNITS/3 ML VIAL SC PRN (08:22)
[2019-05-03] MEDS: Famotidine 20 MG TAB PO SCH (08:22)
[2019-05-03] MEDS ORDERED: Aspirin 81 mg Enteric Coated Tablet PO SCH (09:00)
[2019-05-03] MEDS ORDERED: Insulin Glargine 15 UNITS in Pre-Filled Syringe 1 EACH SC SCH (09:00)
[2019-05-03] MEDS ORDERED: Saccharomyces boulardii 250 MG CAP PO SCH (09:00)
[2019-05-03] MEDS ORDERED: Amiodarone 200 MG TAB PO SCH (09:00)
[2019-05-03] MEDS ORDERED: Insulin Regular 300 UNITS/3 ML VIAL SC PRN (11:35)
[2019-05-03] MEDS ORDERED: glipiZIDE 5 MG TAB PO SCH ×3 (12:30→16:30)
[2019-05-03 13:15] VITALS: BP 141/68; TEMP 98.7
[2019-05-03] MEDS ORDERED: Insulin Glargine 20 UNITS in Pre-Filled Syringe 1 EACH SC SCH (21:00)
--- NOTE | 2019-05-03 23:18 | DIS ---
DATE OF ADMISSION: 05/02/2019 DATE OF DISCHARGE: 05/03/2019 DISCHARGE DISPOSITION: Home. FOLLOWUP: Follow up with [facility] in 1 week. DISCHARGE MEDICATIONS: Metformin was discontinued. All other home medications were left unchanged. INPATIENT CURING MACHINE OPERATOR: Cardiology, Dr. Nate Blake. The patient was seen and examined on the day of discharge. Denies any new complaints. Diarrhea has resolved. BRIEF HOSPITAL COURSE: The patient is a 59-year-old male with cardiomyopathy, hypertension, and diabetes mellitus type 2 with ongoing tobacco abuse, presented to the hospital with diarrhea of 3 weeks duration. Please refer to the history and physical for further details. In the emergency room, his telemetry monitoring was consistent with suspected ventricular arrhythmias/torsade. He was also found to have acute kidney injury. He was started on amiodarone drip and was monitored on telemetry unit. He did not have any episode of bowel movement during this hospitalization. Please note that he has discontinued metformin 2 days prior to admission. The patient was evaluated by Cardiology, Dr. Blake. His AICD was interrogated. His echocardiogram showed ejection fraction of 15% to 20% with moderate mitral regurgitation, [id number] tricuspid regurgitation. According to Cardiology, his rhythm strip from the emergency room was probably an artifact. Amiodarone has been discontinued. He has been cleared by Cardiology for discharge. Metformin has been discontinued due to diarrhea. FINAL DIAGNOSES: 1. Diarrhea of 3-week duration, suspected secondary to metformin. 2. Acute kidney injury on chronic kidney disease stage 2, improved. A repeat basic metabolic profile after 1 week is recommended. Primary care physician advised to follow. 3. Ventricular arrhythmia/torsade, suspected probably an artifact per Cardiology. 4. Hyponatremia. 5. Diabetes mellitus type 2. 6. Chronic systolic heart failure, ejection fraction 20% to 25% range secondary to ischemic cardiomyopathy. 7. Hypertension. 8. Hyperlipidemia. 9. Coronary artery disease, status post myocardial infarction and coronary artery bypass graft. 10. Ongoing tobacco abuse, the patient was counseled. The patient understands the above plan of care. Job ID: [id number]
[2019-05-04] MEDS ORDERED: Levothyroxine Sodium 50 MCG TAB PO SCH ×2 (06:00→09:00)
[2019-05-04] MEDS ORDERED: Atorvastatin Calcium 10 MG TAB PO SCH (09:00)
--- NOTE | 2019-05-05 08:24 | EKG ---
Test Reason : Blood Pressure : / mmHG Vent. Rate : 058 BPM Atrial Rate : 058 BPM P-R Int : 186 ms QRS Dur : 120 ms QT Int : 472 ms P-R-T Axes : 069 085 214 degrees QTc Int : 463 ms Sinus bradycardia Non-specific intra-ventricular conduction delay T wave abnormality, consider inferolateral ischemia Abnormal ECG When compared with ECG of 06-SEP-2017 07:41, Premature ventricular complexes are no longer Present Vent. rate has decreased BY 34 BPM Questionable change in QRS axis T wave inversion now evident in Inferior leads T wave inversion more evident in Lateral leads Confirmed by DR. Cassie HARDY ([id number]) on 05/05/2019 8:23:56 AM Referred By: HETAL Confirmed By:DR. Cassie HARDY
== END 2019-05-03 14:55 | disposition home or self-care (01) | DRG 394 ==
LOC: ERS 07:59 → ERHOLD 10:30 → 2NO 16:34
PROVIDERS: ADMIT Internal Medicine; ATTEND Internal Medicine
DX: K52.1 Toxic gastroenteritis and colitis (principal); N17.9 Acute kidney failure, unspecified; E87.1 Hypo-osmolality and hyponatremia; I50.22 Chronic systolic (congestive) heart failure; I13.0 Hypertensive heart and chronic kidney disease with heart failure and stage 1 through stage 4 chronic kidney disease, or unspecified chronic kidney disease; N18.2 Chronic kidney disease, stage 2 (mild); T38.3X5A Adverse effect of insulin and oral hypoglycemic [antidiabetic] drugs, initial encounter; F17.210 Nicotine dependence, cigarettes, uncomplicated; E78.5 Hyperlipidemia, unspecified; I25.10 Atherosclerotic heart disease of native coronary artery without angina pectoris; I25.5 Ischemic cardiomyopathy; E86.0 Dehydration; I12.9 Hypertensive chronic kidney disease with stage 1 through stage 4 chronic kidney disease, or unspecified chronic kidney disease; E11.22 Type 2 diabetes mellitus with diabetic chronic kidney disease; Y92.009 Unspecified place in unspecified non-institutional (private) residence as the place of occurrence of the external cause; Z79.4 Long term (current) use of insulin; Z95.1 Presence of aortocoronary bypass graft; Z95.810 Presence of automatic (implantable) cardiac defibrillator; I25.2 Old myocardial infarction
CPT/HCPCS: 36415; 36416; 71045; 74022; 80053; 80061; 83690; 83735; 84100; 84443; 85025; 93005; 93010; 93306; J0282; J1815; J3475; J7070

== ENCOUNTER 2019-08-26 15:15 | Emergency (ER) | payer OTHER ==
--- NOTE | 2019-08-26 17:09 | RAD ---
EXAM: LEFT FOOT THREE VIEWS: 08/26/19 HISTORY: Blister to left foot has gotten worse. COMPARISON: 09/11/13. FINDINGS: Deformity of the second metatarsal evidence for healed fracture. Arthrosis changes including the firs t metatarsophalangeal joint. Vascular calcifications with calcaneal plantar enthesophyte. No overt rj ne erosive or destructive changes. IMPRESSION: Arthrosis and degenerative changes with old deformity of the second metatarsal, stable. No significan t new process. If there is clinical concern for osteomyelitis, nonemergent follow-up MRI study might be of benefit. POS: [facility]
== END 2019-08-26 17:53 | disposition home or self-care (01) ==
LOC: ERS 15:15
DX: E11.621 Type 2 diabetes mellitus with foot ulcer (principal); L97.529 Non-pressure chronic ulcer of other part of left foot with unspecified severity; L97.519 Non-pressure chronic ulcer of other part of right foot with unspecified severity; J44.9 Chronic obstructive pulmonary disease, unspecified; I25.10 Atherosclerotic heart disease of native coronary artery without angina pectoris; I25.2 Old myocardial infarction; F17.210 Nicotine dependence, cigarettes, uncomplicated; Z79.4 Long term (current) use of insulin; Z79.899 Other long term (current) drug therapy

== ENCOUNTER 2019-12-13 15:03 | Emergency (ER) | payer OTHER ==
[2019-12-13 15:35] LABS: #Basophils 0.1 thou/uL (0.0-0.2); #Eosinphils 0.3 thou/uL (0.0-0.7); #Lymphocytes 2.6 thou/uL (1.20-3.40); #Monocytes 1.1 thou/uL (0.11-0.59); #Neutrophils 6.3 thou/uL (1.40-6.50); %Basophils 0.9 % (0.0-1.0); %Eosinophils 3.3 % (0.0-10.0); %Lymphocytes 24.7 % (21.0-51.0); %Monocytes 10.4 % (0.0-10.0); %Neutrophils 60.6 % (42.0-75.0); Hemoglobin 14.4 g/dL (14.0-18.0); Mean Corpuscular HGB CONC 34.1 g/dL (32.0-36.0); Mean Corpuscular Hemoglobin 30.3 pg (27.0-31.0); Mean Corpuscular Volume 88.9 fL (78.0-98.0); Mean Platelet Volume 7.9 fL (7.4-10.4); Platelet Count 255 thou/uL (130-400); RBC Distribution Width 12.8 % (11.5-14.5); Red Blood Cell (RBC) Count 4.76 mill/uL (4.70-6.10); White Blood Cell (WBC) Count 10.4 thou/uL (4.8-10.8)
[2019-12-13 15:58] LABS: ALT (SGPT) 19 U/L (8-55); AST (SGOT) 15 U/L (5-34); Albumin 3.6 g/dL (3.5-5.0); Alkaline Phosphatase 123 U/L (40-110); Anion Gap 14 mmol/L (10-20); BUN (Urea Nitrogen) 35 mg/dL (8.4-25.7); Bilirubin, Total 0.6 mg/dL (0.2-1.2); Calc. Creatinine Clearance 0 mL/min (70-130); Calcium 9.2 mg/dL (7.8-10.44); Carbon Dioxide 25 mmol/L (22-29); Chloride 96 mmol/L (98-107); Estimated GFR-MDRD 44; Globulin 3.7 g/dL (2.4-3.5); Glucose 442 mg/dL (70-105); Potassium 4.5 mmol/L (3.5-5.1); Protein, Total 7.3 g/dL (6.0-8.3); Sodium 130 mmol/L (136-145)
--- NOTE | 2019-12-13 20:11 | RAD ---
LEFT FOOT 3 VIEWS: Date: 12/13/2019 HISTORY: Pain and swelling to base of foot. COMPARISON: 08/26/2019. FINDINGS/IMPRESSION: Healed fracture deformity of the shaft of the second metatarsal is again seen. Degenerative changes i n the first MTP joint are stable. A plantar calcaneal spur is again seen. No acute fracture, dislocat ion, bony destruction, or periosteal reaction is identified. A soft tissue defect is seen in the plan tar aspect of the distal foot at the level of the MTP joints. POS: [facility]
== END 2019-12-13 19:55 | disposition home or self-care (01) ==
LOC: ERS 15:03
DX: E11.621 Type 2 diabetes mellitus with foot ulcer (principal); L97.419 Non-pressure chronic ulcer of right heel and midfoot with unspecified severity; E11.65 Type 2 diabetes mellitus with hyperglycemia; F17.210 Nicotine dependence, cigarettes, uncomplicated; J44.9 Chronic obstructive pulmonary disease, unspecified; I25.2 Old myocardial infarction; Z79.4 Long term (current) use of insulin; Z79.899 Other long term (current) drug therapy
CPT/HCPCS: 36415; 80053; 85025; 87040

== ENCOUNTER 2020-05-13 09:59 | Emergency (ER) | payer OTHER ==
[2020-05-13] MEDS ORDERED: Bacitracin 1 PK ONE ×2 (11:01→11:03)
== END 2020-05-13 11:10 | disposition home or self-care (01) ==
LOC: ERS 09:59
DX: E11.621 Type 2 diabetes mellitus with foot ulcer (principal); E11.40 Type 2 diabetes mellitus with diabetic neuropathy, unspecified; J44.9 Chronic obstructive pulmonary disease, unspecified; I25.2 Old myocardial infarction; F17.210 Nicotine dependence, cigarettes, uncomplicated
CPT/HCPCS: 99282

== ENCOUNTER 2020-09-12 09:30 | Inpatient (IN) | payer OTHER ==
[2020-09-12 11:10] LABS: Hemoglobin 15.2 g/dL (14.0-18.0); Mean Corpuscular HGB CONC 32.8 g/dL (32.0-36.0); Mean Corpuscular Hemoglobin 29.4 pg (27.0-31.0); Mean Corpuscular Volume 89.5 fL (78.0-98.0); Mean Platelet Volume 8.6 fL (7.4-10.4); Platelet Count 250 thou/uL (130-400); RBC Distribution Width 12.8 % (11.5-14.5); Red Blood Cell (RBC) Count 5.19 mill/uL (4.70-6.10); White Blood Cell (WBC) Count 21.7 thou/uL (4.8-10.8)
[2020-09-12] MEDS ORDERED: Cefepime 2 GM VIAL ONE (11:10)
[2020-09-12 11:22] LABS: ALT (SGPT) 11 U/L (8-55); AST (SGOT) 13 U/L (5-34); Albumin 3.8 g/dL (3.5-5.0); Alkaline Phosphatase 116 U/L (40-110); Anion Gap 21 mmol/L (10-20); BUN (Urea Nitrogen) 58 mg/dL (8.4-25.7); Bilirubin, Total 1.2 mg/dL (0.2-1.2); Calc. Creatinine Clearance 0 mL/min (70-130); Carbon Dioxide 33 mmol/L (22-29); Chloride 80 mmol/L (98-107); Globulin 3.8 g/dL (2.4-3.5); Glucose 439 mg/dL (70-105); Potassium 3.3 mmol/L (3.5-5.1); Protein, Total 7.6 g/dL (6.0-8.3); Sodium 131 mmol/L (136-145)
[2020-09-12 11:29] LABS: Band 4 % (5-11); Eosinophils 1 % (0-10); Lymphocytes 9 % (21-51); MDiff Complete? YES; Monocytes 11 % (0-10); Neutrophil 74 % (42-75); Platelet Morphology Comment Appears Adequate; RBC Morphology Normal
[2020-09-12] MEDS ORDERED: VANCOMYCIN 2 GRAM/400 ML BAG 2 GM in Premix Bag 1 BAG IVPB SCH (12:15)
[2020-09-12] MEDS ORDERED: Dextrose 5% in Water 1,000 ML IV PRN (12:16)
[2020-09-12] MEDS ORDERED: Dextrose 50% Abboject 50 ML SYRINGE SLOW IVP PRN (12:16)
[2020-09-12] MEDS ORDERED: RENAL FS PRN (12:25)
[2020-09-12] MEDS ORDERED: HYDROcodone/Acetaminophen 5/325 mg Tablet PO PRN (12:31)
[2020-09-12] MEDS ORDERED: Acetaminophen 325 MG TAB PO PRN (12:31)
[2020-09-12] MEDS ORDERED: Ondansetron ODT 4 MG TAB PO PRN (12:31)
[2020-09-12] MEDS ORDERED: HYDROcodone/Acetaminophen 10/325 mg Tablet PO PRN (12:31)
[2020-09-12] MEDS ORDERED: Senokot S 8.6-50 MG TAB PO PRN (12:31)
[2020-09-12] MEDS ORDERED: Insulin Regular 300 UNITS/3 ML VIAL ONE (12:38)
[2020-09-12] MEDS ORDERED: Potassium Chloride 20 MEQ in Premix Bag 1 BAG IVPB SCH (13:30)
[2020-09-12] MEDS ORDERED: Famotidine 20 MG TAB PO SCH (13:30)
[2020-09-12] MEDS ORDERED: Nicotine 21 MG PATCH TD PRN (14:00)
[2020-09-12 14:01] LABS: Lactic Acid 2.7 mmol/L (0.5-2.2)
[2020-09-12 14:05] LABS: Hemoglobin A1c 13.8 % (4.0-6.0)
[2020-09-12] MEDS ORDERED: Famotidine 20 MG TAB ONE (14:19)
[2020-09-12] MEDS ORDERED: Potassium Chloride 20 MEQ/100 ML PREMIX BAG ONE (14:30)
[2020-09-12 17:22] VITALS: BMI 30.6
[2020-09-12] MEDS: Sodium Chloride 0.9% 1,000 ML IV SCH ×2 (17:23→22:06)
[2020-09-12 17:42] LABS: Anion Gap 16 mmol/L (10-20); BUN (Urea Nitrogen) 48 mg/dL (8.4-25.7); Calc. Creatinine Clearance 55 mL/min (70-130); Calcium 8.1 mg/dL (7.8-10.44); Carbon Dioxide 27 mmol/L (22-29); Chloride 91 mmol/L (98-107); Glucose 341 mg/dL (70-105); Potassium 3.6 mmol/L (3.5-5.1); Sodium 130 mmol/L (136-145)
[2020-09-12] MEDS ORDERED: Cefepime 2 GM in Sodium Chloride 0.9% 100 ML IVPB SCH (18:00)
[2020-09-12] MEDS: HumaLOG 300 UNITS/3 ML VIAL SC PRN ×2 (18:40→22:05)
[2020-09-12 19:20] LABS: Bilirubin Negative (Negative); Blood, Urine Trace (Negative); Clarity Clear (Clear); Glucose, Urine (Dipstick) Greater than 1000 mg/dL (Negative); Ketone, Urine Trace mg/dL (Negative); Leukocyte Negative Leu/uL (Negative); Nitrite Negative (Negative); Protein, Urine (Dipstick) 20 mg/dL (Neg-Trace); RBC/HPF 0-3 HPF (0-3); Specific Gravity, Urine 1.016 (1.002-1.036); Squamous Epithelial None Seen HPF (0-3); Urobilinogen Normal mg/dL (Less than 2); WBC/HPF 0-3 HPF (0-3)
[2020-09-12 19:21] LABS: Bacteria/HPF 1+ HPF (None Seen)
[2020-09-12] MEDS: Vancomycin 1 GM in Premix Bag 1 BAG IVPB SCH (19:31)
[2020-09-12] MEDS: Lantus 1000 UNITS/10 ML VIAL SC SCH (22:05)
[2020-09-12] MEDS: Carvedilol 25 MG TAB PO SCH (22:06)
[2020-09-13] MEDS: Sodium Chloride 0.9% 1,000 ML IV SCH (05:39)
[2020-09-13 05:55] LABS: Eosinophils 1 % (0-10); Hemoglobin 12.4 g/dL (14.0-18.0); Lymphocytes 9 % (21-51); MDiff Complete? YES; Mean Corpuscular Hemoglobin 30.3 pg (27.0-31.0); Mean Corpuscular Volume 89.3 fL (78.0-98.0); Mean Platelet Volume 8.4 fL (7.4-10.4); Monocytes 8 % (0-10); Neutrophil 82 % (42-75); Platelet Count 220 thou/uL (130-400); Platelet Morphology Comment Appears Adequate; RBC Distribution Width 12.5 % (11.5-14.5); RBC Morphology Normal; Red Blood Cell (RBC) Count 4.09 mill/uL (4.70-6.10); White Blood Cell (WBC) Count 19.7 thou/uL (4.8-10.8)
[2020-09-13 06:06] LABS: Anion Gap 13 mmol/L (10-20); BUN (Urea Nitrogen) 39 mg/dL (8.4-25.7); Calc. Creatinine Clearance 64 mL/min (70-130); Calcium 7.9 mg/dL (7.8-10.44); Carbon Dioxide 28 mmol/L (22-29); Chloride 98 mmol/L (98-107); Glucose 142 mg/dL (70-105); Sodium 136 mmol/L (136-145)
[2020-09-13 06:21] LABS: Potassium 2.7 mmol/L (3.5-5.1)
[2020-09-13] MEDS ORDERED: Potassium Chloride 20 MEQ TAB PO SCH (06:45)
[2020-09-13] MEDS: Cefepime 2 GM in Sodium Chloride 0.9% 100 ML IVPB SCH (06:45)
[2020-09-13] MEDS: Bisacodyl 5 MG TAB PO PRN (06:47)
[2020-09-13] MEDS ORDERED: Electrolyte Replacement Protocol 1 EACH FS SCH (08:45)
[2020-09-13] MEDS: Aspirin 81 mg Enteric Coated Tablet PO SCH (10:28)
[2020-09-13] MEDS: Carvedilol 25 MG TAB PO SCH ×2 (10:28→22:43)
[2020-09-13] MEDS: Enoxaparin Sodium 30 MG/0.3 ML SYRINGE SC SCH (10:30)
[2020-09-13] MEDS: Famotidine 20 MG TAB PO SCH (10:31)
[2020-09-13] MEDS: HumaLOG 300 UNITS/3 ML VIAL SC PRN ×2 (10:43→22:43)
[2020-09-13] MEDS ORDERED: Magnesium 2 GM/50 ML 2 GM in Premix Bag 1 BAG IVPB SCH (10:45)
[2020-09-13 15:48] LABS: SARS-CoV-2 NAA Rapid Test Not Detected (NotDetected)
[2020-09-13] MEDS ORDERED: Bupivacaine PF 0.5% 30 ML VIAL ONE ×2 (15:50→19:20)
[2020-09-13] MEDS ORDERED: Fentanyl 100 MCG/2 ML VIAL ONE ×2 (15:50→19:05)
[2020-09-13] MEDS ORDERED: traMADol HCl 50 MG TAB PO PRN (17:58)
[2020-09-13] MEDS ORDERED: Lidocaine 1% w/Epinephrine 1:100K 20 ML VIAL ONE (19:20)
[2020-09-13] MEDS ORDERED: Ondansetron HCl/PF 4 MG/2 ML Vial IVP PRN (19:44)
[2020-09-13] MEDS ORDERED: Promethazine HCl 25 MG/ML VIAL IM PRN (19:44)
[2020-09-13] MEDS ORDERED: Promethazine HCl 25 MG/ML VIAL IVPB PRN (19:44)
[2020-09-13] MEDS: Vancomycin 1 GM in Premix Bag 1 BAG IVPB SCH (22:37)
[2020-09-13] MEDS: Lantus 1000 UNITS/10 ML VIAL SC SCH (22:43)
[2020-09-14] MEDS: Sodium Chloride 0.9% 1,000 ML IV SCH ×6 (00:40→20:39)
[2020-09-14 05:11] LABS: #Basophils 0.1 thou/uL (0.0-0.2); #Eosinphils 0.5 thou/uL (0.0-0.7); #Lymphocytes 1.4 thou/uL (1.20-3.40); #Monocytes 1.3 thou/uL (0.11-0.59); #Neutrophils 11.4 thou/uL (1.40-6.50); %Basophils 0.6 % (0.0-1.0); %Eosinophils 3.7 % (0.0-10.0); %Lymphocytes 9.5 % (21.0-51.0); %Monocytes 8.5 % (0.0-10.0); %Neutrophils 77.7 % (42.0-75.0); Hemoglobin 12.3 g/dL (14.0-18.0); Mean Corpuscular HGB CONC 33.3 g/dL (32.0-36.0); Mean Corpuscular Hemoglobin 30.1 pg (27.0-31.0); Mean Corpuscular Volume 90.5 fL (78.0-98.0); Mean Platelet Volume 8.5 fL (7.4-10.4); Platelet Count 232 thou/uL (130-400); RBC Distribution Width 12.6 % (11.5-14.5); Red Blood Cell (RBC) Count 4.09 mill/uL (4.70-6.10); White Blood Cell (WBC) Count 14.7 thou/uL (4.8-10.8)
[2020-09-14 05:44] LABS: Anion Gap 11 mmol/L (10-20); BUN (Urea Nitrogen) 28 mg/dL (8.4-25.7); Calc. Creatinine Clearance 84 mL/min (70-130); Calcium 7.9 mg/dL (7.8-10.44); Carbon Dioxide 25 mmol/L (22-29); Chloride 101 mmol/L (98-107); Glucose 164 mg/dL (70-105); Potassium 3.1 mmol/L (3.5-5.1); Sodium 134 mmol/L (136-145)
[2020-09-14] MEDS: Cefepime 2 GM in Sodium Chloride 0.9% 100 ML IVPB SCH (05:46)
[2020-09-14] MEDS: HumaLOG 300 UNITS/3 ML VIAL SC PRN ×2 (06:02→18:02)
[2020-09-14] MEDS ORDERED: Potassium Chloride 20 MEQ TAB PO SCH (06:30)
[2020-09-14] MEDS: Carvedilol 25 MG TAB PO SCH ×2 (10:00→20:39)
[2020-09-14] MEDS: Bisacodyl 5 MG TAB PO PRN (10:01)
[2020-09-14] MEDS: Aspirin 81 mg Enteric Coated Tablet PO SCH (10:01)
[2020-09-14] MEDS: Famotidine 20 MG TAB PO SCH (10:01)
[2020-09-14] MEDS: Enoxaparin Sodium 30 MG/0.3 ML SYRINGE SC SCH (10:01)
[2020-09-14] MEDS: Lantus 1000 UNITS/10 ML VIAL SC SCH (20:39)
[2020-09-14] MEDS: Amoxicillin/Potassium Clav 875 MG TAB PO SCH (20:39)
[2020-09-15 05:30] LABS: #Basophils 0.1 thou/uL (0.0-0.2); #Eosinphils 0.5 thou/uL (0.0-0.7); #Lymphocytes 1.7 thou/uL (1.20-3.40); #Monocytes 1.3 thou/uL (0.11-0.59); #Neutrophils 9.5 thou/uL (1.40-6.50); %Basophils 0.4 % (0.0-1.0); %Eosinophils 3.9 % (0.0-10.0); %Lymphocytes 12.9 % (21.0-51.0); %Monocytes 10.2 % (0.0-10.0); %Neutrophils 72.6 % (42.0-75.0); Hemoglobin 11.6 g/dL (14.0-18.0); Mean Corpuscular HGB CONC 31.6 g/dL (32.0-36.0); Mean Corpuscular Hemoglobin 28.6 pg (27.0-31.0); Mean Corpuscular Volume 90.4 fL (78.0-98.0); Mean Platelet Volume 8.2 fL (7.4-10.4); Platelet Count 253 thou/uL (130-400); RBC Distribution Width 12.8 % (11.5-14.5); Red Blood Cell (RBC) Count 4.07 mill/uL (4.70-6.10)
[2020-09-15 05:44] LABS: Anion Gap 9 mmol/L (10-20); BUN (Urea Nitrogen) 23 mg/dL (8.4-25.7); Calc. Creatinine Clearance 95 mL/min (70-130); Calcium 7.9 mg/dL (7.8-10.44); Carbon Dioxide 24 mmol/L (22-29); Chloride 105 mmol/L (98-107); Glucose 131 mg/dL (70-105); Potassium 3.4 mmol/L (3.5-5.1); Sodium 135 mmol/L (136-145)
[2020-09-15] MEDS ORDERED: Potassium Chloride 20 MEQ TAB PO SCH (07:45)
[2020-09-15] MEDS: Carvedilol 25 MG TAB PO SCH ×2 (07:59→21:35)
[2020-09-15] MEDS: Enoxaparin Sodium 30 MG/0.3 ML SYRINGE SC SCH (07:59)
[2020-09-15] MEDS: Aspirin 81 mg Enteric Coated Tablet PO SCH (07:59)
[2020-09-15] MEDS: Amoxicillin/Potassium Clav 875 MG TAB PO SCH ×2 (07:59→21:34)
[2020-09-15] MEDS: Famotidine 20 MG TAB PO SCH (08:06)
[2020-09-15] MEDS: Sodium Chloride 0.9% 1,000 ML IV SCH ×4 (11:40→21:36)
[2020-09-15] MEDS: glipiZIDE 5 MG TAB PO SCH ×2 (16:55→21:34)
[2020-09-15] MEDS: HumaLOG 300 UNITS/3 ML VIAL SC PRN (17:12)
[2020-09-15] MEDS: Lantus 1000 UNITS/10 ML VIAL SC SCH (21:34)
[2020-09-15] MEDS: Atorvastatin Calcium 10 MG TAB PO SCH (21:34)
[2020-09-16] MEDS: Sodium Chloride 0.9% 1,000 ML IV SCH ×3 (05:34→16:59)
[2020-09-16 05:42] LABS: #Basophils 0.1 thou/uL (0.0-0.2); #Eosinphils 0.7 thou/uL (0.0-0.7); #Lymphocytes 1.9 thou/uL (1.20-3.40); #Monocytes 1.2 thou/uL (0.11-0.59); #Neutrophils 5.7 thou/uL (1.40-6.50); %Basophils 0.8 % (0.0-1.0); %Eosinophils 6.9 % (0.0-10.0); %Lymphocytes 20.1 % (21.0-51.0); %Monocytes 12.7 % (0.0-10.0); %Neutrophils 59.6 % (42.0-75.0); Hemoglobin 11.3 g/dL (14.0-18.0); Mean Corpuscular HGB CONC 32.3 g/dL (32.0-36.0); Mean Corpuscular Hemoglobin 29.3 pg (27.0-31.0); Mean Corpuscular Volume 90.9 fL (78.0-98.0); Mean Platelet Volume 7.9 fL (7.4-10.4); Platelet Count 273 thou/uL (130-400); RBC Distribution Width 12.8 % (11.5-14.5); Red Blood Cell (RBC) Count 3.84 mill/uL (4.70-6.10); White Blood Cell (WBC) Count 9.6 thou/uL (4.8-10.8)
[2020-09-16 06:15] LABS: Anion Gap 11 mmol/L (10-20); BUN (Urea Nitrogen) 19 mg/dL (8.4-25.7); Calc. Creatinine Clearance 119 mL/min (70-130); Calcium 7.7 mg/dL (7.8-10.44); Carbon Dioxide 20 mmol/L (22-29); Chloride 109 mmol/L (98-107); Glucose 152 mg/dL (70-105); Potassium 3.7 mmol/L (3.5-5.1); Sodium 136 mmol/L (136-145)
[2020-09-16] MEDS: Levothyroxine Sodium 50 MCG TAB PO SCH (06:42)
[2020-09-16] MEDS: Enoxaparin Sodium 30 MG/0.3 ML SYRINGE SC SCH (09:08)
[2020-09-16] MEDS: Aspirin 81 mg Enteric Coated Tablet PO SCH (09:09)
[2020-09-16] MEDS: Torsemide 20 MG TAB PO SCH (09:09)
[2020-09-16] MEDS: glipiZIDE 5 MG TAB PO SCH ×4 (09:09→21:41)
[2020-09-16] MEDS: Amoxicillin/Potassium Clav 875 MG TAB PO SCH ×2 (09:09→21:41)
[2020-09-16] MEDS: Carvedilol 25 MG TAB PO SCH ×2 (09:09→21:41)
[2020-09-16] MEDS: Cholecalciferol 1,000 UNITS (25 MCG) TAB PO SCH (09:10)
[2020-09-16] MEDS: Famotidine 20 MG TAB PO SCH (09:10)
[2020-09-16] MEDS: Lisinopril 2.5 MG TAB PO SCH (09:12)
[2020-09-16] MEDS: HumaLOG 300 UNITS/3 ML VIAL SC PRN ×2 (11:45→16:53)
[2020-09-16] MEDS: Atorvastatin Calcium 10 MG TAB PO SCH (21:41)
[2020-09-16] MEDS: Lantus 1000 UNITS/10 ML VIAL SC SCH (21:43)
[2020-09-17] MEDS: Sodium Chloride 0.9% 1,000 ML IV SCH (02:14)
[2020-09-17 04:56] LABS: #Eosinphils 0.6 thou/uL (0.0-0.7); #Lymphocytes 2.5 thou/uL (1.20-3.40); #Monocytes 1.4 thou/uL (0.11-0.59); %Basophils 0.4 % (0.0-1.0); %Eosinophils 4.5 % (0.0-10.0); %Lymphocytes 19.9 % (21.0-51.0); %Neutrophils 64.1 % (42.0-75.0); Hemoglobin 11.1 g/dL (14.0-18.0); Mean Corpuscular HGB CONC 32.9 g/dL (32.0-36.0); Mean Corpuscular Hemoglobin 29.3 pg (27.0-31.0); Mean Corpuscular Volume 89.3 fL (78.0-98.0); Mean Platelet Volume 7.6 fL (7.4-10.4); Platelet Count 294 thou/uL (130-400); RBC Distribution Width 12.7 % (11.5-14.5); Red Blood Cell (RBC) Count 3.78 mill/uL (4.70-6.10); White Blood Cell (WBC) Count 12.5 thou/uL (4.8-10.8)
[2020-09-17 05:16] LABS: Anion Gap 10 mmol/L (10-20); BUN (Urea Nitrogen) 19 mg/dL (8.4-25.7); Calc. Creatinine Clearance 120 mL/min (70-130); Calcium 7.8 mg/dL (7.8-10.44); Carbon Dioxide 23 mmol/L (22-29); Chloride 107 mmol/L (98-107); Glucose 176 mg/dL (70-105); Potassium 3.2 mmol/L (3.5-5.1); Sodium 137 mmol/L (136-145)
[2020-09-17] MEDS: HumaLOG 300 UNITS/3 ML VIAL SC PRN ×2 (05:30→16:45)
[2020-09-17] MEDS: Levothyroxine Sodium 50 MCG TAB PO SCH (05:31)
[2020-09-17] MEDS ORDERED: Potassium Chloride 20 MEQ TAB PO SCH (06:30)
[2020-09-17] MEDS: Enoxaparin Sodium 30 MG/0.3 ML SYRINGE SC SCH (08:52)
[2020-09-17] MEDS: glipiZIDE 5 MG TAB PO SCH ×4 (08:52→22:05)
[2020-09-17] MEDS: Lisinopril 2.5 MG TAB PO SCH (08:52)
[2020-09-17] MEDS: Torsemide 20 MG TAB PO SCH (08:53)
[2020-09-17] MEDS: Aspirin 81 mg Enteric Coated Tablet PO SCH (08:53)
[2020-09-17] MEDS: Cholecalciferol 1,000 UNITS (25 MCG) TAB PO SCH (08:53)
[2020-09-17] MEDS: Amoxicillin/Potassium Clav 875 MG TAB PO SCH ×2 (08:53→22:06)
[2020-09-17] MEDS: Carvedilol 25 MG TAB PO SCH ×2 (08:54→22:00)
[2020-09-17] MEDS: Famotidine 20 MG TAB PO SCH (08:54)
[2020-09-17] MEDS: Polyethylene Glycol 3350 17 GM Packet PO PRN (20:02)
[2020-09-17] MEDS: Atorvastatin Calcium 10 MG TAB PO SCH (22:06)
[2020-09-17] MEDS: Lantus 1000 UNITS/10 ML VIAL SC SCH (22:07)
[2020-09-17] MEDS ORDERED: HumaLOG 300 UNITS/3 ML VIAL SC PRN (22:51)
[2020-09-18 05:19] LABS: #Basophils 0.1 thou/uL (0.0-0.2); #Eosinphils 0.5 thou/uL (0.0-0.7); #Lymphocytes 2.9 thou/uL (1.20-3.40); #Monocytes 1.6 thou/uL (0.11-0.59); %Basophils 0.5 % (0.0-1.0); %Eosinophils 3.8 % (0.0-10.0); %Lymphocytes 24.2 % (21.0-51.0); %Monocytes 13.1 % (0.0-10.0); %Neutrophils 58.4 % (42.0-75.0); Hemoglobin 11.2 g/dL (14.0-18.0); Mean Corpuscular HGB CONC 33.2 g/dL (32.0-36.0); Mean Corpuscular Hemoglobin 29.9 pg (27.0-31.0); Mean Corpuscular Volume 90.1 fL (78.0-98.0); Mean Platelet Volume 7.9 fL (7.4-10.4); Platelet Count 301 thou/uL (130-400); RBC Distribution Width 12.9 % (11.5-14.5); Red Blood Cell (RBC) Count 3.76 mill/uL (4.70-6.10)
[2020-09-18 05:43] LABS: Anion Gap 12 mmol/L (10-20); BUN (Urea Nitrogen) 19 mg/dL (8.4-25.7); Calc. Creatinine Clearance 103 mL/min (70-130); Calcium 7.8 mg/dL (7.8-10.44); Carbon Dioxide 24 mmol/L (22-29); Chloride 104 mmol/L (98-107); Glucose 212 mg/dL (70-105); Potassium 3.5 mmol/L (3.5-5.1); Sodium 136 mmol/L (136-145)
[2020-09-18] MEDS: Levothyroxine Sodium 50 MCG TAB PO SCH (05:59)
[2020-09-18] MEDS: HumaLOG 300 UNITS/3 ML VIAL SC PRN ×2 (06:00→13:11)
[2020-09-18] MEDS ORDERED: Potassium Chloride 20 MEQ TAB PO SCH (07:00)
[2020-09-18] MEDS: Polyethylene Glycol 3350 17 GM Packet PO PRN (09:14)
[2020-09-18] MEDS: Enoxaparin Sodium 30 MG/0.3 ML SYRINGE SC SCH (09:14)
[2020-09-18] MEDS: Aspirin 81 mg Enteric Coated Tablet PO SCH (09:15)
[2020-09-18] MEDS: Amoxicillin/Potassium Clav 875 MG TAB PO SCH (09:15)
[2020-09-18] MEDS: glipiZIDE 5 MG TAB PO SCH ×2 (09:15→13:11)
[2020-09-18] MEDS: Cholecalciferol 1,000 UNITS (25 MCG) TAB PO SCH (09:16)
[2020-09-18] MEDS: Famotidine 20 MG TAB PO SCH (09:24)
[2020-09-18] MEDS: Torsemide 20 MG TAB PO SCH (09:27)
[2020-09-18] MEDS: Lisinopril 2.5 MG TAB PO SCH (09:27)
[2020-09-18] MEDS: Carvedilol 25 MG TAB PO SCH (09:27)
[2020-09-18 11:38] VITALS: BP 103/50
[2020-09-18 11:48] VITALS: TEMP 97.6
== END 2020-09-18 13:45 | disposition home or self-care (01) | DRG 239 ==
LOC: SUATTDRO 09:30 → ERS 09:30 → ERHOLD 12:31 → 2SE 15:59
PROVIDERS: ADMIT Family Medicine; ATTEND Internal Medicine
PROC: 0Y6N0Z9 Detachment at Left Foot, Partial 1st Ray, Open Approach (ICD-10-PCS; principal; 2020-09-13)
PROC: 0Y6Q0Z1 Detachment at Left 1st Toe, High, Open Approach (ICD-10-PCS; 2020-09-13)
PROC: 0Y6S0Z1 Detachment at Left 2nd Toe, High, Open Approach (ICD-10-PCS; 2020-09-13)
PROC: 0Y6N0ZB Detachment at Left Foot, Partial 2nd Ray, Open Approach (ICD-10-PCS; 2020-09-13)
DX: E11.52 Type 2 diabetes mellitus with diabetic peripheral angiopathy with gangrene (principal); A48.0 Gas gangrene; I42.9 Cardiomyopathy, unspecified; I13.0 Hypertensive heart and chronic kidney disease with heart failure and stage 1 through stage 4 chronic kidney disease, or unspecified chronic kidney disease; L03.116 Cellulitis of left lower limb; N17.9 Acute kidney failure, unspecified; I50.22 Chronic systolic (congestive) heart failure; E87.2 Acidosis; E87.1 Hypo-osmolality and hyponatremia; M86.8X7 Other osteomyelitis, ankle and foot; E11.628 Type 2 diabetes mellitus with other skin complications; E11.40 Type 2 diabetes mellitus with diabetic neuropathy, unspecified; E78.5 Hyperlipidemia, unspecified; J44.9 Chronic obstructive pulmonary disease, unspecified; N18.30 Chronic kidney disease, stage 3 unspecified; E87.6 Hypokalemia; E11.621 Type 2 diabetes mellitus with foot ulcer; F17.210 Nicotine dependence, cigarettes, uncomplicated; E11.22 Type 2 diabetes mellitus with diabetic chronic kidney disease; E11.65 Type 2 diabetes mellitus with hyperglycemia; D64.9 Anemia, unspecified; I08.1 Rheumatic disorders of both mitral and tricuspid valves; Z20.822 Contact with and (suspected) exposure to COVID-19; E11.69 Type 2 diabetes mellitus with other specified complication; L97.529 Non-pressure chronic ulcer of other part of left foot with unspecified severity; I25.10 Atherosclerotic heart disease of native coronary artery without angina pectoris; Z79.82 Long term (current) use of aspirin; Z79.84 Long term (current) use of oral hypoglycemic drugs; I25.2 Old myocardial infarction; Z95.1 Presence of aortocoronary bypass graft; Z71.6 Tobacco abuse counseling; Z95.810 Presence of automatic (implantable) cardiac defibrillator
CPT/HCPCS: 36415; 36416; 80048; 80053; 81001; 83036; 83605; 83735; 85007; 85025; 85027; 85652; 86140; 87040; 87070; 87077; 87086; 87186; 87205; 88305; 88311; 93005; 96365; 96366; 96367; 96375; J0692; J1650; J1815; J3010; J3370; J3475; J3480; J3490; S0020; U0002; U0003; U0005

== ENCOUNTER 2020-09-18 20:19 | Emergency (ER) | payer OTHER | END 2020-09-18 23:35 | disposition home or self-care (01) | LOC: ERS 20:19 | DX: Z48.01 Encounter for change or removal of surgical wound dressing (principal); Z89.412 Acquired absence of left great toe; E11.9 Type 2 diabetes mellitus without complications; J44.9 Chronic obstructive pulmonary disease, unspecified; I25.2 Old myocardial infarction; E78.5 Hyperlipidemia, unspecified; F17.210 Nicotine dependence, cigarettes, uncomplicated; Z79.82 Long term (current) use of aspirin; Z79.4 Long term (current) use of insulin; Z79.899 Other long term (current) drug therapy | CPT/HCPCS: 99282 ==

== ENCOUNTER 2021-01-25 07:24 | Inpatient (IN) | payer OTHER ==
[2021-01-25 08:25] LABS: #Basophils 0.1 thou/uL (0.0-0.2); #Eosinphils 0.3 thou/uL (0.0-0.7); #Lymphocytes 1.5 thou/uL (1.20-3.40); #Monocytes 1.2 thou/uL (0.11-0.59); #Neutrophils 6.1 thou/uL (1.40-6.50); %Basophils 0.7 % (0.0-1.0); %Lymphocytes 16.2 % (21.0-51.0); %Monocytes 13.5 % (0.0-10.0); %Neutrophils 66.5 % (42.0-75.0); Hemoglobin 12.9 g/dL (14.0-18.0); Mean Corpuscular HGB CONC 31.4 g/dL (32.0-36.0); Mean Corpuscular Hemoglobin 28.6 pg (27.0-31.0); Mean Corpuscular Volume 91.1 fL (78.0-98.0); Mean Platelet Volume 7.5 fL (7.4-10.4); Platelet Count 205 thou/uL (130-400); RBC Distribution Width 16.5 % (11.5-14.5); Red Blood Cell (RBC) Count 4.52 mill/uL (4.70-6.10); White Blood Cell (WBC) Count 9.1 thou/uL (4.8-10.8)
[2021-01-25] MEDS ORDERED: Furosemide 40 MG/4 ML VIAL ONE (08:39)
[2021-01-25 08:46] LABS: ALT (SGPT) 48 U/L (8-55); AST (SGOT) 35 U/L (5-34); Albumin 3.7 g/dL (3.5-5.0); Alkaline Phosphatase 87 U/L (40-110); Anion Gap 12 mmol/L (10-20); BUN (Urea Nitrogen) 35 mg/dL (8.4-25.7); Bilirubin, Total 0.7 mg/dL (0.2-1.2); Calc. Creatinine Clearance 0 mL/min (70-130); Calcium 8.5 mg/dL (7.8-10.44); Carbon Dioxide 23 mmol/L (22-29); Chloride 109 mmol/L (98-107); Globulin 3.4 g/dL (2.4-3.5); Potassium 4.9 mmol/L (3.5-5.1); Protein, Total 7.1 g/dL (6.0-8.3); Sodium 139 mmol/L (136-145)
[2021-01-25 08:49] LABS: Glucose 35 mg/dL (70-105)
[2021-01-25] MEDS ORDERED: Dextrose 50% Abboject 50 ML SYRINGE ONE (08:51)
[2021-01-25] MEDS ORDERED: Albuterol 200 PUFF (6.7GM INHALER) ONE (10:04)
[2021-01-25 11:58] LABS: Troponin I Less than 0.010 ng/mL (< 0.028)
[2021-01-25] MEDS ORDERED: Acetaminophen 325 MG TAB PO PRN (13:03)
[2021-01-25] MEDS ORDERED: Dextrose 50% Abboject 50 ML SYRINGE SLOW IVP PRN (13:03)
[2021-01-25] MEDS ORDERED: Dextrose 5% in Water 1,000 ML IV PRN (13:03)
[2021-01-25] MEDS ORDERED: HumaLOG 300 UNITS/3 ML VIAL SC PRN (13:03)
[2021-01-25 13:45] LABS: Magnesium 3.1 mg/dL (1.6-2.6)
[2021-01-25] MEDS ORDERED: Dextrose 5 % And 0.9 % NaCl 1,000 ML IV SCH ×2 (13:45→14:45)
[2021-01-25 15:23] LABS: Troponin I 0.014 ng/mL (< 0.028)
[2021-01-25] MEDS: Furosemide 40 MG/4 ML VIAL SLOW IVP SCH (16:44)
[2021-01-25] MEDS: Heparin 5,000 UNITS/ML VIAL SC SCH (20:50)
[2021-01-26 05:49] LABS: #Eosinphils 0.2 thou/uL (0.0-0.7); #Lymphocytes 1.5 thou/uL (1.20-3.40); #Monocytes 1.2 thou/uL (0.11-0.59); %Basophils 0.6 % (0.0-1.0); %Eosinophils 3.1 % (0.0-10.0); %Lymphocytes 18.5 % (21.0-51.0); %Monocytes 14.7 % (0.0-10.0); %Neutrophils 63.2 % (42.0-75.0); Hemoglobin 11.3 g/dL (14.0-18.0); Mean Corpuscular HGB CONC 32.6 g/dL (32.0-36.0); Mean Corpuscular Hemoglobin 29.6 pg (27.0-31.0); Mean Corpuscular Volume 90.9 fL (78.0-98.0); Mean Platelet Volume 7.4 fL (7.4-10.4); Platelet Count 181 thou/uL (130-400); RBC Distribution Width 16.7 % (11.5-14.5); Red Blood Cell (RBC) Count 3.82 mill/uL (4.70-6.10); White Blood Cell (WBC) Count 7.9 thou/uL (4.8-10.8)
[2021-01-26] MEDS: Furosemide 40 MG/4 ML VIAL SLOW IVP SCH ×2 (05:59→16:09)
[2021-01-26 06:11] LABS: Anion Gap 11 mmol/L (10-20); BUN (Urea Nitrogen) 32 mg/dL (8.4-25.7); Calc. Creatinine Clearance 70 mL/min (70-130); Calcium 8.1 mg/dL (7.8-10.44); Carbon Dioxide 24 mmol/L (22-29); Chloride 108 mmol/L (98-107); Glucose 166 mg/dL (70-105); Potassium 4.2 mmol/L (3.5-5.1); Sodium 139 mmol/L (136-145)
[2021-01-26] MEDS: Heparin 5,000 UNITS/ML VIAL SC SCH ×2 (09:56→20:45)
[2021-01-26] MEDS: Aspirin 81 mg Enteric Coated Tablet PO SCH (09:56)
[2021-01-26] MEDS ORDERED: Empagliflozin 10 MG TAB PO SCH (10:30)
[2021-01-26 12:22] VITALS: BMI 35.2
[2021-01-26 12:36] LABS: SARS-CoV-2 PCR by NAA Not Detected (NotDetected)
[2021-01-27] MEDS: Furosemide 40 MG/4 ML VIAL SLOW IVP SCH (05:29)
[2021-01-27] MEDS: Levothyroxine Sodium 50 MCG TAB PO SCH (05:29)
[2021-01-27 05:36] LABS: Eosinophils 1 % (0-10); Hemoglobin 11.3 g/dL (14.0-18.0); Hypochromia SLIGHT = 6-15 cells (100X) (0-5/hpf); Lymphocytes 32 % (21-51); MDiff Complete? YES; Mean Corpuscular HGB CONC 31.6 g/dL (32.0-36.0); Mean Corpuscular Hemoglobin 28.6 pg (27.0-31.0); Mean Corpuscular Volume 90.4 fL (78.0-98.0); Mean Platelet Volume 7.1 fL (7.4-10.4); Monocytes 13 % (0-10); Neutrophil 54 % (42-75); Platelet Count 175 thou/uL (130-400); Platelet Morphology Comment Appears Adequate; RBC Distribution Width 16.5 % (11.5-14.5); Red Blood Cell (RBC) Count 3.97 mill/uL (4.70-6.10); White Blood Cell (WBC) Count 8.2 thou/uL (4.8-10.8)
[2021-01-27 05:41] LABS: Anion Gap 12 mmol/L (10-20); BUN (Urea Nitrogen) 28 mg/dL (8.4-25.7); Calc. Creatinine Clearance 69 mL/min (70-130); Calcium 8.3 mg/dL (7.8-10.44); Carbon Dioxide 26 mmol/L (22-29); Chloride 105 mmol/L (98-107); Glucose 170 mg/dL (70-105); Magnesium 2.3 mg/dL (1.6-2.6); Sodium 139 mmol/L (136-145)
[2021-01-27] MEDS: Empagliflozin 10 MG TAB PO SCH (09:19)
[2021-01-27] MEDS: Aspirin 81 mg Enteric Coated Tablet PO SCH (09:19)
[2021-01-27] MEDS: Heparin 5,000 UNITS/ML VIAL SC SCH ×2 (09:19→21:50)
[2021-01-28 04:51] LABS: Anion Gap 12 mmol/L (10-20); BUN (Urea Nitrogen) 27 mg/dL (8.4-25.7); Calc. Creatinine Clearance 69 mL/min (70-130); Carbon Dioxide 24 mmol/L (22-29); Chloride 105 mmol/L (98-107); Glucose 209 mg/dL (70-105); Potassium 4.2 mmol/L (3.5-5.1); Sodium 137 mmol/L (136-145)
[2021-01-28 04:55] LABS: Band 2 % (5-11); Eosinophils 2 % (0-10); Hemoglobin 11.8 g/dL (14.0-18.0); Hypochromia SLIGHT = 6-15 cells (100X) (0-5/hpf); Lymphocytes 15 % (21-51); MDiff Complete? YES; Mean Corpuscular HGB CONC 32.2 g/dL (32.0-36.0); Mean Corpuscular Hemoglobin 29.3 pg (27.0-31.0); Mean Corpuscular Volume 91.1 fL (78.0-98.0); Mean Platelet Volume 7.4 fL (7.4-10.4); Monocytes 16 % (0-10); Neutrophil 65 % (42-75); Platelet Count 187 thou/uL (130-400); Platelet Morphology Comment Appears Adequate; RBC Distribution Width 16.6 % (11.5-14.5); Red Blood Cell (RBC) Count 4.03 mill/uL (4.70-6.10); White Blood Cell (WBC) Count 8.9 thou/uL (4.8-10.8)
[2021-01-28] MEDS ORDERED: Polyethylene Glycol 3350 17 GM Packet PO PRN (05:35)
[2021-01-28] MEDS: Levothyroxine Sodium 50 MCG TAB PO SCH (05:59)
[2021-01-28] MEDS: HumaLOG 300 UNITS/3 ML VIAL SC PRN ×2 (06:07→11:32)
[2021-01-28 07:42] VITALS: TEMP 97.6
[2021-01-28] MEDS ORDERED: Furosemide 20 MG TAB PO SCH (09:00)
[2021-01-28] MEDS ORDERED: Silver Sulfadiazine 50 GM TUBE TOP SCH (09:00)
[2021-01-28] MEDS: Heparin 5,000 UNITS/ML VIAL SC SCH (09:30)
[2021-01-28] MEDS: Aspirin 81 mg Enteric Coated Tablet PO SCH (09:30)
[2021-01-28] MEDS: Empagliflozin 10 MG TAB PO SCH (09:30)
[2021-01-28 13:00] VITALS: BP 118/56
== END 2021-01-28 13:01 | disposition home or self-care (01) | DRG 291 ==
LOC: ERS 07:24 → 2NO 11:51
PROVIDERS: ADMIT Internal Medicine; ATTEND Family Medicine
DX: I13.0 Hypertensive heart and chronic kidney disease with heart failure and stage 1 through stage 4 chronic kidney disease, or unspecified chronic kidney disease (principal); I50.43 Acute on chronic combined systolic (congestive) and diastolic (congestive) heart failure; N17.9 Acute kidney failure, unspecified; Z20.822 Contact with and (suspected) exposure to COVID-19; I25.5 Ischemic cardiomyopathy; N18.30 Chronic kidney disease, stage 3 unspecified; E11.22 Type 2 diabetes mellitus with diabetic chronic kidney disease; F17.210 Nicotine dependence, cigarettes, uncomplicated; I25.10 Atherosclerotic heart disease of native coronary artery without angina pectoris; E78.5 Hyperlipidemia, unspecified; E11.649 Type 2 diabetes mellitus with hypoglycemia without coma; R00.1 Bradycardia, unspecified; I44.0 Atrioventricular block, first degree; Z28.21 Immunization not carried out because of patient refusal; Z95.810 Presence of automatic (implantable) cardiac defibrillator; Z89.422 Acquired absence of other left toe(s); Z91.14 Patient's other noncompliance with medication regimen; Z79.899 Other long term (current) drug therapy; Z79.4 Long term (current) use of insulin; Z79.84 Long term (current) use of oral hypoglycemic drugs; Z79.890 Hormone replacement therapy; Z79.82 Long term (current) use of aspirin
CPT/HCPCS: 36415; 36416; 71045; 80048; 80053; 83735; 83880; 84439; 84443; 84484; 85025; 93005; 93306; 93798; 96374; 96375; J1644; J1815; J1940; J7042; U0003; U0005

== ENCOUNTER 2021-01-30 13:11 | Emergency (ER) | payer OTHER | END 2021-01-30 14:31 | disposition home or self-care (01) | LOC: ERS 13:11 | DX: R60.0 Localized edema (principal); E11.9 Type 2 diabetes mellitus without complications; I25.2 Old myocardial infarction; E78.5 Hyperlipidemia, unspecified; J44.9 Chronic obstructive pulmonary disease, unspecified; Z79.84 Long term (current) use of oral hypoglycemic drugs; F17.210 Nicotine dependence, cigarettes, uncomplicated | CPT/HCPCS: 93005 ==

== ENCOUNTER 2022-09-25 11:14 | Emergency (ER) | payer OTHER ==
[2022-09-25 12:18] LABS: #Basophils 0.1 thou/uL (0.0-0.2); #Eosinphils 0.3 thou/uL (0.0-0.7); #Neutrophils 5.5 thou/uL (1.40-6.50); %Basophils 0.8 % (0.0-1.0); %Eosinophils 3.6 % (0.0-10.0); %Lymphocytes 19.2 % (21.0-51.0); %Monocytes 11.3 % (0.0-10.0); %Neutrophils 64.9 % (42.0-75.0); Hemoglobin 15.1 g/dL (14.0-18.0); Mean Corpuscular HGB CONC 32.4 g/dL (32.0-36.0); Mean Corpuscular Hemoglobin 28.3 pg (27.0-31.0); Mean Corpuscular Volume 87.3 fl (78.0-98.0); Mean Platelet Volume 9.5 fL (7.4-10.4); Platelet Count 205 10x3/uL (130-400); RBC Distribution Width 14.6 % (11.5-14.5); Red Blood Cell (RBC) Count 5.34 mill/uL (4.70-6.10); White Blood Cell (WBC) Count 8.6 10x3/uL (4.8-10.8)
[2022-09-25 12:41] LABS: ALT (SGPT) 12 U/L (8-55); AST (SGOT) 12 U/L (5-34); Albumin 3.9 g/dL (3.5-5.0); Alkaline Phosphatase 96 U/L (40-110); Anion Gap 10 mmol/L (10-20); BUN (Urea Nitrogen) 29 mg/dL (8.4-25.7); Bilirubin, Total 1.1 mg/dL (0.2-1.2); Calc. Creatinine Clearance 0 mL/min (70-130); Carbon Dioxide 24 mmol/L (22-29); Chloride 101 mmol/L (98-107); Estimated GFR 51; Globulin 3.1 g/dL (2.4-3.5); Glucose 390 mg/dL (70-105); Potassium 4.3 mmol/L (3.5-5.1); Sodium 131 mmol/L (136-145)
== END 2022-09-25 13:22 | disposition home or self-care (01) ==
LOC: ERS 11:14
DX: J44.1 Chronic obstructive pulmonary disease with (acute) exacerbation (principal); E11.9 Type 2 diabetes mellitus without complications; E78.5 Hyperlipidemia, unspecified; F17.210 Nicotine dependence, cigarettes, uncomplicated; Z79.82 Long term (current) use of aspirin; Z79.4 Long term (current) use of insulin; Z79.899 Other long term (current) drug therapy
CPT/HCPCS: 36415; 71045; 80053; 85025; 85379

== ENCOUNTER 2023-01-19 09:23 | Emergency (ER) | payer OTHER | END 2023-01-19 11:34 | disposition home or self-care (01) | LOC: ERS 09:23 | DX: E11.621 Type 2 diabetes mellitus with foot ulcer (principal); L97.529 Non-pressure chronic ulcer of other part of left foot with unspecified severity; J44.9 Chronic obstructive pulmonary disease, unspecified; F17.210 Nicotine dependence, cigarettes, uncomplicated; Z79.4 Long term (current) use of insulin; Z79.84 Long term (current) use of oral hypoglycemic drugs ==

== ENCOUNTER 2023-02-03 14:21 | Emergency (ER) | payer OTHER | END 2023-02-03 15:51 | disposition home or self-care (01) | LOC: ERS 14:21 | DX: L03.116 Cellulitis of left lower limb (principal); L97.529 Non-pressure chronic ulcer of other part of left foot with unspecified severity; E11.622 Type 2 diabetes mellitus with other skin ulcer; E78.5 Hyperlipidemia, unspecified; F17.210 Nicotine dependence, cigarettes, uncomplicated; J44.9 Chronic obstructive pulmonary disease, unspecified; I25.2 Old myocardial infarction; Z79.82 Long term (current) use of aspirin; Z79.84 Long term (current) use of oral hypoglycemic drugs; Z79.4 Long term (current) use of insulin; Z79.899 Other long term (current) drug therapy | CPT/HCPCS: 99283 ==

== ENCOUNTER 2023-02-06 15:18 | Inpatient (IN) | payer OTHER ==
[2023-02-06 16:03] LABS: #Basophils 0.1 thou/uL (0.0-0.2); #Monocytes 1.6 thou/uL (0.11-0.59); #Neutrophils 21.7 thou/uL (1.40-6.50); %Basophils 0.2 % (0.0-1.0); %Lymphocytes 2.5 % (21.0-51.0); %Monocytes 6.4 % (0.0-10.0); %Neutrophils 89.7 % (42.0-75.0); Hematocrit 37.9 % (42.0-52.0); Hemoglobin 12.4 g/dL (14.0-18.0); Mean Corpuscular HGB CONC 32.7 g/dL (32.0-36.0); Mean Corpuscular Hemoglobin 27.1 pg (27.0-31.0); Mean Corpuscular Volume 82.9 fl (78.0-98.0); Mean Platelet Volume 10.3 fL (7.4-10.4); Platelet Count 383 10x3/uL (130-400); RBC Distribution Width 15.9 % (11.5-14.5); Red Blood Cell (RBC) Count 4.57 mill/uL (4.70-6.10); White Blood Cell (WBC) Count 24.2 10x3/uL (4.8-10.8)
[2023-02-06 16:14] LABS: INR-International Normal Ratio 1.3; Prothrombin Time 16.6 sec (12.0-14.7)
[2023-02-06 16:16] LABS: PTT 31.3 sec (22.9-36.1)
[2023-02-06 16:33] LABS: Bilirubin, Total 0.9 mg/dL (0.2-1.2)
[2023-02-06 16:35] LABS: ALT (SGPT) 18 U/L (8-55); AST (SGOT) 25 U/L (5-34); Albumin 2.6 g/dL (3.4-4.8); Alkaline Phosphatase 190 U/L (40-110); Anion Gap 17 mmol/L (10-20); BUN (Urea Nitrogen) 39 mg/dL (8.4-25.7); Calc. Creatinine Clearance 0 mL/min (70-130); Calcium 8.6 mg/dL (7.8-10.44); Carbon Dioxide 25 mmol/L (23-31); Chloride 91 mmol/L (98-107); Estimated GFR 57; Globulin 5.1 g/dL (2.4-3.5); Glucose 279 mg/dL (80-115); Potassium 3.3 mmol/L (3.5-5.1); Protein, Total 7.7 g/dL (5.8-8.1); Sodium 130 mmol/L (136-145)
[2023-02-06] MEDS ORDERED: Sodium Chloride 0.9% 100 ML ONE (16:35)
[2023-02-06] MEDS ORDERED: Cefepime 2 GM VIAL ONE (16:35)
[2023-02-06] MEDS ORDERED: Vancomycin 1 GM/200 ML (FROZEN) BAG ONE (17:15)
[2023-02-06] MEDS ORDERED: fentaNYL PF 100 MCG/2 ML SYRINGE ONE (18:43)
[2023-02-06] MEDS ORDERED: Rocuronium Bromide 10 MG/ML (10ML VIAL) ONE ×2 (18:43→19:22)
[2023-02-06] MEDS ORDERED: Ondansetron PF 4 MG/2 ML Vial ONE ×2 (18:43→19:22)
[2023-02-06] MEDS ORDERED: PROPOFOL 20 ML ONE (18:43)
[2023-02-06] MEDS ORDERED: Lidocaine 1% PF 5 ML VIAL ONE (18:49)
[2023-02-06] MEDS ORDERED: Etomidate 40 MG (20 mL) VIAL ONE (18:59)
[2023-02-06 19:10] LABS: Lactic Acid 1.6 mmol/L (0.5-2.2)
[2023-02-06] MEDS ORDERED: SUCCINYLCHOLINE/SOD CL,ISO/PF 200 MG/10 ML SYRINGE FS ONE ×2 (19:22→19:24)
[2023-02-06] MEDS ORDERED: Calcium Chloride 1 GM/10 ML Abboject SYRINGE ONE (19:22)
[2023-02-06] MEDS ORDERED: Albuterol HFA (OR) 200 PUFF INH ONE (19:22)
[2023-02-06] MEDS ORDERED: PHENYLEPHRINE-NS 100 MCG/ML 10 ML SYRINGE ONE (19:22)
[2023-02-06] MEDS ORDERED: Calcium Carbonate 500 MG ChewTAB PO PRN (19:24)
[2023-02-06] MEDS ORDERED: Acetaminophen 325 MG TAB PO PRN (19:24)
[2023-02-06] MEDS ORDERED: Ondansetron PF 4 MG/2 ML Vial IVP PRN (19:24)
[2023-02-06] MEDS ORDERED: Ondansetron ODT 4 MG TAB PO PRN (19:24)
[2023-02-06] MEDS ORDERED: Dextrose 5% in Water 1,000 ML IV PRN (19:39)
[2023-02-06] MEDS ORDERED: Insulin Regular 300 UNITS/3 ML VIAL SC PRN (19:39)
[2023-02-06] MEDS ORDERED: Dextrose 50% Abboject 50 ML SYRINGE SLOW IVP PRN (19:39)
[2023-02-06] MEDS ORDERED: Glucagon 1 MG/ML KIT IM PRN (19:39)
[2023-02-06] MEDS ORDERED: HumaLOG 300 UNITS/3 ML VIAL SC PRN (19:39)
[2023-02-06] MEDS ORDERED: Albumin 5% 500 ML ONE (19:40)
[2023-02-06] MEDS ORDERED: Ipratropium/Albuterol 3 ML NEB NEB PRN (19:44)
[2023-02-06] MEDS ORDERED: Nicotine 14 MG PATCH TD PRN (19:45)
[2023-02-06] MEDS ORDERED: Clindamycin/D5W 600 mg/50 ml Premix Bag ONE (19:47)
[2023-02-06] MEDS ORDERED: Electrolyte Replacement Protocol 1 EACH FS SCH (19:49)
[2023-02-06] MEDS ORDERED: Ketamine In 0.9 % NaCl 50 MG/5 ML SYRINGE ONE (19:50)
[2023-02-06] MEDS ORDERED: Vasopressin 20 UNITS/ML VIAL ONE (20:00)
[2023-02-06] MEDS ORDERED: Promethazine HCl 25 MG/ML VIAL IM PRN (20:50)
[2023-02-06] MEDS ORDERED: Ondansetron HCl/PF 4 MG/2 ML Vial IVP PRN (20:50)
[2023-02-06 22:14] VITALS: BMI 31.2
[2023-02-06] MEDS: Piperacillin/Tazobactam 3.375 GM in Sodium Chloride 0.9% 100 ML IVPB SCH (23:06)
[2023-02-06] MEDS: Potassium Chloride 20 MEQ in Premix 1 BAG IVPB SCH (23:07)
[2023-02-06] MEDS: Famotidine/PF 20 mg/2ml Vial SLOW IVP SCH (23:08)
[2023-02-06] MEDS: Clindamycin/D5W 900 MG in Premix 1 BAG IVPB SCH (23:08)
[2023-02-06] MEDS: Famotidine 20 MG TAB PO SCH (23:08)
[2023-02-06] MEDS: Carvedilol 6.25 MG TAB PO SCH (23:08)
[2023-02-06] MEDS: Vancomycin 1 GM in Premix 1 BAG IVPB SCH (23:09)
[2023-02-06] MEDS ORDERED: Piperacillin/Tazobactam 3.375 GM in Sodium Chloride 0.9% 100 ML IVPB SCH (23:59)
[2023-02-07] MEDS ORDERED: Sodium Bicarb 50 MEQ/50 ML Abboject 8.4% SYRINGE ONE (00:46)
[2023-02-07] MEDS ORDERED: EPINEPHrine 1 MG/10 ML Abboject SYRINGE ONE (00:46)
[2023-02-07] MEDS ORDERED: Calcium Chloride 1 GM/10 ML Abboject SYRINGE ONE (00:46)
[2023-02-07] MEDS ORDERED: Atropine Sulfate 1 mg/10 ml Syringe ONE (00:46)
[2023-02-07] MEDS ORDERED: Ventilator Sedation Protocol 1 EACH FS SCH (01:08)
[2023-02-07] MEDS ORDERED: DISCONTINUE PREVIOUS NARCOTIC PAIN MEDICATIONS AND BENZODIAZEPINES FS SCH (01:15)
[2023-02-07] MEDS ORDERED: Propofol 1,000 MG/100 ML VIAL IV PRN (01:15)
[2023-02-07] MEDS ORDERED: Fentanyl BOLUS 250 ML IVPB PRN (01:15)
[2023-02-07] MEDS ORDERED: Fentanyl CADD 100 ML IV SCH (01:15)
[2023-02-07] MEDS ORDERED: Morphine 2 MG/ML VIAL SLOW IVP PRN (01:15)
[2023-02-07] MEDS ORDERED: Propofol BOLUS 1,000 MG/100 ML VIAL IV PRN (01:15)
[2023-02-07 01:17] LABS: Hematocrit 32.6 % (42.0-52.0); Manual Diff?? YES; Mean Corpuscular HGB CONC 30.7 g/dL (32.0-36.0); Mean Corpuscular Hemoglobin 27.3 pg (27.0-31.0); Mean Platelet Volume 10.5 fL (7.4-10.4); RBC Distribution Width 16.2 % (11.5-14.5); Red Blood Cell (RBC) Count 3.66 mill/uL (4.70-6.10); White Blood Cell (WBC) Count 25.4 10x3/uL (4.8-10.8)
[2023-02-07 01:19] LABS: Platelet Count 119 10x3/uL (130-400)
[2023-02-07 01:22] LABS: Mean Corpuscular Volume 89.1 fl (78.0-98.0); Platelet Count 110 10x3/uL (130-400)
[2023-02-07 01:22] LABS: Actual Bicarbonate (HCO3a) 25.5 mEq/L (22-28); Base Excess (BEa) -4.2 mEq/L (-2.0 to +3.0); Calcium, Ionized (arterial) 1.18 mmol/L (1.12-1.30); Carboxyhemoglobin (COHb) 0.7 gm% (0.0-3.0); Hematocrit-ABG 30 % (42.0-52.0); Hemoglobin (Hb) 10.3 g/dL (14.0-18.0); O2 Tension (PaO2), arterial 70.7 mmHg (> 80.0); Potassium - ABG Lab 4.31 mmol/L (3.70-5.30)
[2023-02-07 01:23] LABS: Delete Auto Diff?? YES
[2023-02-07] MEDS: Sodium Bicarb 50 MEQ/50 ML Abboject 8.4% SYRINGE IVP SCH (01:23)
[2023-02-07 01:25] LABS: Puncture Site LBA
[2023-02-07 01:30] LABS: INR-International Normal Ratio 1.6
[2023-02-07 01:31] LABS: Fibrinogen 542 mg/dL (253-463)
[2023-02-07] MEDS: Lorazepam 2 MG/ML VIAL SLOW IVP PRN (01:37)
[2023-02-07 01:45] LABS: Anisocytosis SLIGHT = 6-15 cells HPF (0-5); Band 8 % (5-11); Burr Cells MODERATE= 6-15 cells HPF (0-1); CellaVision Operator ID lab.sh2; Hypochromia SLIGHT = 6-15 cells HPF (0-5); Lymphocytes 5 % (21-51); Metamyelocyte 2 % (0-0); Monocytes 6 % (0-10); Neutrophil 78 % (42-75); Ovalocytes SLIGHT = 2-5 cells HPF (0-1); Platelet Adequacy Comment Platelets Decreased; Polychromasia SLIGHT = 2-3 cells HPF (0-2); Reactive Lymphocytes 1 % (0-10); Smudge Cells 4.9 %; Total Cell Count 102
[2023-02-07 01:54] LABS: D-Dimer Test 4.08 *mcg/mL (0.27-0.43)
[2023-02-07 02:02] LABS: ALT (SGPT) 33 U/L (8-55); AST (SGOT) 129 U/L (5-34); Albumin 1.7 g/dL (3.4-4.8); Alkaline Phosphatase 323 U/L (40-110); Anion Gap 16 mmol/L (10-20); BUN (Urea Nitrogen) 36 mg/dL (8.4-25.7); Bilirubin, Total 0.9 mg/dL (0.2-1.2); Calc. Creatinine Clearance 80 mL/min (70-130); Calcium 7.1 mg/dL (7.8-10.44); Carbon Dioxide 20 mmol/L (23-31); Chloride 99 mmol/L (98-107); Estimated GFR 62; Globulin 3.5 g/dL (2.4-3.5); Glucose 272 mg/dL (80-115); Lactic Acid 4.7 mmol/L (0.5-2.2); Potassium 5.8 mmol/L (3.5-5.1); Protein, Total 5.2 g/dL (5.8-8.1); Sodium 129 mmol/L (136-145)
[2023-02-07 02:03] VITALS: TEMP 99
[2023-02-07] MEDS: Lactated Ringer's 500 ML IV SCH (02:15)
[2023-02-07] MEDS: NOREPINEPHRINE 8 MG/250 ML-D5W 250 ML ONE (02:15)
[2023-02-07] MEDS ORDERED: NOREPINEPHRINE 8 MG/250 ML-D5W 250 ML IVPB SCH (02:15)
[2023-02-07] MEDS: Pantoprazole 40 MG VIAL IVP SCH (03:53)
[2023-02-07] MEDS: Sodium Bicarbonate 70 MEQ in Sodium Chloride 0.45% 1,000 ML IV SCH (03:53)
[2023-02-07] MEDS: Insulin Regular 300 UNITS/3 ML VIAL IVP SCH (03:53)
[2023-02-07] MEDS ORDERED: Piperacillin/Tazobactam 3.375 GM in Sodium Chloride 0.9% 100 ML IVPB SCH (04:00)
[2023-02-07] MEDS ORDERED: Levothyroxine Sodium 75 MCG TAB PO SCH (06:00)
[2023-02-07] MEDS ORDERED: Vancomycin 1 GM in Premix 1 BAG IVPB SCH (09:00)
[2023-02-07] MEDS ORDERED: Furosemide 20 MG TAB PO SCH (09:00)
[2023-02-07] MEDS ORDERED: Empagliflozin 25 MG TAB PO SCH (09:00)
[2023-02-07] MEDS ORDERED: Empagliflozin 10 MG TAB PO SCH (09:00)
[2023-02-07] MEDS ORDERED: Pantoprazole 40 MG VIAL IVP SCH (21:00)
[2023-02-10 15:08] LABS: pH, Arterial 7.149 (7.35-7.45)
== END 2023-02-07 02:50 | disposition expired | DRG 853 ==
LOC: ERS 15:18 → IMCU/EMU 18:37 → CCU 02-07 01:13
PROVIDERS: ADMIT Student in an Organized Health Care Education/Training Program; ATTEND Student in an Organized Health Care Education/Training Program
PROC: 0Y6J0Z3 Detachment at Left Lower Leg, Low, Open Approach (ICD-10-PCS; 2023-02-06)
PROC: 30233J1 Transfusion of Nonautologous Serum Albumin into Peripheral Vein, Percutaneous Approach (ICD-10-PCS; 2023-02-06)
PROC: 3E033XZ Introduction of Vasopressor into Peripheral Vein, Percutaneous Approach (ICD-10-PCS; 2023-02-06)
PROC: 3E03329 Introduction of Other Anti-infective into Peripheral Vein, Percutaneous Approach (ICD-10-PCS; 2023-02-06)
PROC: 5A12012 Performance of Cardiac Output, Single, Manual (ICD-10-PCS; principal; 2023-02-07)
PROC: 4A033R1 Measurement of Arterial Saturation, Peripheral, Percutaneous Approach (ICD-10-PCS; 2023-02-07)
PROC: 0BH17EZ Insertion of Endotracheal Airway into Trachea, Via Natural or Artificial Opening (ICD-10-PCS; 2023-02-07)
PROC: 5A1935Z Respiratory Ventilation, Less than 24 Consecutive Hours (ICD-10-PCS; 2023-02-07)
DX: A41.9 Sepsis, unspecified organism (principal); J96.00 Acute respiratory failure, unspecified whether with hypoxia or hypercapnia; M72.6 Necrotizing fasciitis; J96.01 Acute respiratory failure with hypoxia; I13.0 Hypertensive heart and chronic kidney disease with heart failure and stage 1 through stage 4 chronic kidney disease, or unspecified chronic kidney disease; I50.22 Chronic systolic (congestive) heart failure; I42.9 Cardiomyopathy, unspecified; E87.29 Other acidosis; L03.116 Cellulitis of left lower limb; Z66 Do not resuscitate; E11.22 Type 2 diabetes mellitus with diabetic chronic kidney disease; J44.9 Chronic obstructive pulmonary disease, unspecified; N18.9 Chronic kidney disease, unspecified; E78.5 Hyperlipidemia, unspecified; E11.621 Type 2 diabetes mellitus with foot ulcer; I46.8 Cardiac arrest due to other underlying condition; L97.519 Non-pressure chronic ulcer of other part of right foot with unspecified severity; E87.6 Hypokalemia; I25.10 Atherosclerotic heart disease of native coronary artery without angina pectoris; F17.210 Nicotine dependence, cigarettes, uncomplicated; E03.9 Hypothyroidism, unspecified; Z79.82 Long term (current) use of aspirin; Z79.890 Hormone replacement therapy; Z95.1 Presence of aortocoronary bypass graft; Z79.899 Other long term (current) drug therapy; Z95.810 Presence of automatic (implantable) cardiac defibrillator; Z98.890 Other specified postprocedural states; Z89.412 Acquired absence of left great toe; Z89.422 Acquired absence of other left toe(s); L97.529 Non-pressure chronic ulcer of other part of left foot with unspecified severity; E11.622 Type 2 diabetes mellitus with other skin ulcer; I25.2 Old myocardial infarction; Z79.84 Long term (current) use of oral hypoglycemic drugs; Z79.4 Long term (current) use of insulin
CPT/HCPCS: 36415; 36416; 36600; 71045; 80053; 82805; 83036; 83605; 83880; 84484; 85025; 85049; 85300; 85362; 85379; 85384; 85610; 85730; 87040; 87077; 87186; 88307; 93005; 93010; 94002; 94760; 96365; 96366; 96367; 99283; J0171; J0461; J0692; J1815; J2060; J2405; J2543; J2704; J3370-JW; J3480; J3490; J7120; P9045; S0028